=== PATIENT | female | born 1935 | race Caucasian/White ===

== ENCOUNTER 2023-08-05 11:51 | Emergency (ER) | payer MEDICARE, SELFPAY ==
[2023-08-05 12:00] VITALS: BP 167/91; PULSE 83; RESP 20; TEMP 36.5; O2SAT 98; BMI 22.3
--- NOTE | 2023-08-05 12:13 | EXP.UTC ---
Discharge Plan Disposition Patient Disposition: Home, Self-Care Condition: Good Prescriptions Prescriptions: New sulfamethoxazole-trimethoprim 800-160 mg tablet 1 tab PO BID 7 Days Qty: 14 0RF mupirocin 2 % ointment 1 applic topical BID Qty: 22 0RF No Action memantine 5 mg tablet 5 mg PO HS PreserVision AREDS 4,296 mcg-226 mg-90 mg capsule 1 cap PO BID Eliquis 2.5 mg tablet 2.5 mg PO BID Qty: 180 3RF bumetanide 1 mg tablet 1 mg PO DAILY Qty: 90 3RF losartan 25 mg tablet 25 mg PO DAILY Qty: 90 3RF metoprolol succinate 50 mg tablet extended release 24 hr 50 mg PO DAILY Qty: 90 3RF Referrals Follow up/Referrals: Kathy Torres [Primary Care Provider] - See instructions Activity Restrictions/Add. Instructions Additional Instructions/Restrictions: You were evaluated in the ER. You are appropriate for discharge at this time. Take the prescribed antibiotic as directed, do not skip doses, do not stop taking it early. Apply the topical ointment as directed. Keep the wound clean and dry. Shower/bathe as normal. Make an appointment with primary care physician for reevaluation in a few days to discuss evaluation of the lesion and ensure the antibiotics are improving. Return to the ER with new, worsening, or otherwise concerning symptoms. Clinical Impressions Clinical Impression: Cellulitis Instructions Patient Instructions: DI for Skin Abscess [place]charge [place] Jace Lopez [facility] [place] General Chief complaint: Skin/Abscess/Foreign Body Stated complaint: knot on left side of head Mode of Arrival: Ambulatory Source of Information: Patient and Relative Limitations: No Limitations Time Seen by Provider: 08/05/23 12:13 Description of Symptoms (Recalled from Triage Doc. by RN): FAMILY REPORTS PATIENT WITH KNOT TO LEFT SIDE OF HEAD X 1 WEEK WITH REDNESS, WARMTH, AND SCAB NOTED TO AREA. NO KNOWN INJURY HEENT Symptoms (Recalled from RN notes): Yes Resp Symptoms (Recalled from RN notes): No Skin Symptoms (Recalled from RN notes): Yes MS Symptoms (Recalled from RN notes): No Functional Status (Recalled from RN notes): WNL History of Present Illness Provider Complaint: Patient told family that she noticed a small bump on the left side of her head about a week ago that was the size of the tip of her pinky but has continued to get worse States she has been putting antibiotic ointment on it and hey suspect she may have been picking at it because now it is larger, redness and warmth around it on her scalp and has redness from her hairline to under her eye not sure if that is from the knot on her head or not but she says it hurts bad when they tried to touch it 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 Denies FIERRO, denies known fever or chills Related Data Home Medications Medication Instructions Recorded Confirmed memantine 5 mg tablet 5 mg PO HS 01/26/23 07/27/23 vitamins A,C,G-qbsq-euefby 4,296 1 cap PO BID 01/26/23 07/27/23 mcg-226 mg-90 mg capsule (PreserVision AREDS) Previous Rx's Medication Instructions Recorded apixaban 2.5 mg tablet (Eliquis) 2.5 mg PO BID #180 tabs 01/26/23 bumetanide 1 mg tablet 1 mg PO DAILY #90 tabs 01/26/23 losartan 25 mg tablet 25 mg PO DAILY #90 tabs 01/26/23 metoprolol succinate 50 mg 50 mg PO DAILY #90 tabs 01/26/23 tablet,extended release 24 hr mupirocin 2 % topical ointment 1 applic topical BID #22 grams 08/05/23 sulfamethoxazole 800 1 tab PO BID 7 days #14 tabs 08/05/23 mg-trimethoprim 160 mg tablet Allergies Allergy/AdvReac Type Severity Reaction Status Date / Time No Known Allergies Allergy Verified 07/27/23 10:36 Worker's Comp Is this a Worker's Comp case?: No [facility] Disclaimer: The information contained in this section may have been updated after the patient was seen, as this information can be updated by other users. Medical History (Updated 08/05/23 @ 12:49 by Jace Lopez MD) Pacemaker Mitral regurgitation Aortic regurgitation HLD (hyperlipidemia) HTN (hypertension) Chronic a-fib HFrEF (heart failure with reduced ejection fraction) Systolic heart failure Surgical History (Updated 08/05/23 @ 12:12 by Sheryl Monreal RN) History of hysterectomy Social History Smoking Status: Never smoker alcohol intake: never current occupational status: retired Travel in the last 8 weeks: None ROS Obtained: Yes All systems reviewed & no additional complaints except as documented and Yes Systems reviewed as appropriate & no additional complaints except as documented Constitutional Constitutional: Reports system reviewed and no additional complaints, except as documented and Reports as per HPI ENT Ears, Nose, Mouth, and Throat: Reports system reviewed and no additional complaints, except as documented and Reports as per HPI Cardiovascular Cardiovascular: Reports system reviewed and no additional complaints, except as documented and Reports as per HPI Respiratory Respiratory: Reports system reviewed and no additional complaints, except as documented and Reports as per HPI Gastrointestinal Gastrointestingal: Reports system reviewed and no additional complaints, except as documented and as per HPI Musculoskeletal Musculoskeletal: Reports system reviewed and no additional complaints, except as documented and Reports as per HPI Integumentary/Breasts Skin/Breast: Reports system reviewed and no additional complaints, except as documented and Reports as per HPI Comments: Reports sore, tender, knot on left side of head that has got worse over the last week now red, sore warm to the touch with scab on it and redness on left side of face to under her eye Neurologic Neurologic: Reports system reviewed and no additional complaints, except as documented and Reports as per HPI Physical Exam General General appearance: alert and in no apparent distress Expanded Head Exam Head exam physical: Present other Head image: 1. red, warm, tender hard scabbed area noted with surrounding redness and warmth to surrounding skin on scalp with redness extending to left side of face and under left eye area appears swollen Respiratory Respiratory exam: Present normal lung sounds bilaterally; Absent respiratory distress Cardiovascular Cardiovascular exam: Present regular rate, normal rhythm and normal heart sounds Neurological Exam Neurological exam: Present alert, oriented X3 and normal gait Skin Skin exam: Present other (see head diagram ) Medical Decision Making Alvarez Inquiry Pt receiving controlled substance: No Alvarez was queried for this patient: No Vital Signs: 08/05/23 12:00 Temperature 97.7 F Temperature Source Oral Pulse Rate [Left Brachial] 83 Respiratory Rate 20 Blood Pressure [Left Arm] 167/91 H Blood Pressure Mean [Left Arm] 116 Blood Pressure Source [Left Arm] Automatic Cuff Blood Pressure Position [Left Arm] Sitting 02 Sat by Pulse Oximetry 98 Oxygen Delivery Method Room Air Medical Decision Narrative: Due to scabbed area on left side of scalp with surrounding redness on the scalp that appears to extend to left side of face and under left eye discussed with family and recommended transfer to the ED for further work up and evaluation and they agreed patient was moved to the ED for further examination and treatment
--- NOTE | 2023-08-05 12:18 | PC.NURSE ---
arrived to ed from [facility] via wheelchair
[2023-08-05 12:27] VITALS: BP 123/78; PULSE 77; RESP 17; TEMP 36.4; O2SAT 98; BMI 22.3
[2023-08-05 12:30] VITALS: BP 145/84; PULSE 79; O2SAT 98
--- NOTE | 2023-08-05 12:54 | HMH.EDGENADL ---
Discharge Plan Disposition Patient Disposition: Home, Self-Care Condition: Good Prescriptions Prescriptions: New sulfamethoxazole-trimethoprim 800-160 mg tablet 1 tab PO BID 7 Days Qty: 14 0RF mupirocin 2 % ointment 1 applic topical BID Qty: 22 0RF No Action memantine 5 mg tablet 5 mg PO HS PreserVision AREDS 4,296 mcg-226 mg-90 mg capsule 1 cap PO BID Eliquis 2.5 mg tablet 2.5 mg PO BID Qty: 180 3RF bumetanide 1 mg tablet 1 mg PO DAILY Qty: 90 3RF losartan 25 mg tablet 25 mg PO DAILY Qty: 90 3RF metoprolol succinate 50 mg tablet extended release 24 hr 50 mg PO DAILY Qty: 90 3RF Referrals Follow up/Referrals: Kathy Torres [Primary Care Provider] - See instructions Activity Restrictions/Add. Instructions Additional Instructions/Restrictions: You were evaluated in the ER. You are appropriate for discharge at this time. Take the prescribed antibiotic as directed, do not skip doses, do not stop taking it early. Apply the topical ointment as directed. Keep the wound clean and dry. Shower/bathe as normal. Make an appointment with primary care physician for reevaluation in a few days to discuss evaluation of the lesion and ensure the antibiotics are improving. Return to the ER with new, worsening, or otherwise concerning symptoms. Clinical Impressions Clinical Impression: Cellulitis Instructions Patient Instructions: DI for Skin Abscess Discharge ED Provider: Jace Lopez General Adult HPI General Chief complaint: Skin/Abscess/Foreign Body Stated complaint: knot on left side of head Time Seen by Provider: 08/05/23 12:13 Mode of Arrival: Ambulatory Source of Information: Patient and Relative Limitations: No Limitations Description of Symptoms (Recalled from ER Triage Doc. by RN): FAMILY REPORTS PATIENT WITH KNOT TO LEFT SIDE OF HEAD X 1 WEEK WITH REDNESS, WARMTH, AND SCAB NOTED TO AREA. NO KNOWN INJURY History of Present Illness HPI narrative: 87-year-old female with history of dementia presents to the ER with concerns of lesion and redness on the left side of the head. Approximately 1 week ago patient scratched the top off a lesion and cause bleeding. Since that time she has continued to touch intermittently but today family noted that it is red and warm. Patient was sent from urgent care for concerns of the redness extending slightly under the eye. No fevers, no other associated symptoms, no vision changes, headache, or eye pain. Related Data Home Medications Medication Instructions Recorded Confirmed memantine 5 mg tablet 5 mg PO HS 01/26/23 07/27/23 vitamins A,C,C-guil-kaukqk 4,296 1 cap PO BID 01/26/23 07/27/23 mcg-226 mg-90 mg capsule (PreserVision AREDS) Previous Rx's Medication Instructions Recorded apixaban 2.5 mg tablet (Eliquis) 2.5 mg PO BID #180 tabs 01/26/23 bumetanide 1 mg tablet 1 mg PO DAILY #90 tabs 01/26/23 losartan 25 mg tablet 25 mg PO DAILY #90 tabs 01/26/23 metoprolol succinate 50 mg 50 mg PO DAILY #90 tabs 01/26/23 tablet,extended release 24 hr mupirocin 2 % topical ointment 1 applic topical BID #22 grams 08/05/23 sulfamethoxazole 800 1 tab PO BID 7 days #14 tabs 08/05/23 mg-trimethoprim 160 mg tablet Allergies Allergy/AdvReac Type Severity Reaction Status Date / Time No Known Allergies Allergy Verified 07/27/23 10:36 [facility] Disclaimer: The information contained in this section may have been updated after the patient was seen, as this information can be updated by other users. Medical History (Updated 08/05/23 @ 12:49 by Jace Lopez MD) Pacemaker Mitral regurgitation Aortic regurgitation HLD (hyperlipidemia) HTN (hypertension) Chronic a-fib HFrEF (heart failure with reduced ejection fraction) Systolic heart failure Surgical History (Updated 08/05/23 @ 12:12 by Sheryl Monreal RN) History of hysterectomy Social History Smoking Status: Never smoker alcohol intake: never current occupational status: retired Travel in the last 8 weeks: None ROS Obtained: Yes All systems reviewed & no additional complaints except as documented Constitutional Constitutional: Denies chills, Denies fever(s), Denies headache(s) and Denies weakness Eyes Eyes: Denies change in vision ENT Ears, Nose, Mouth, and Throat: Denies dizziness, Denies headache(s), Denies nasal congestion and Denies sore throat Cardiovascular Cardiovascular: Denies chest pain, Denies dyspnea and Denies leg edema Respiratory Respiratory: Denies cough and Denies dyspnea Gastrointestinal Gastrointestingal: Denies constipation, diarrhea, nausea or vomiting Genitourinary Female Genitourinary: Denies dysuria Musculoskeletal Musculoskeletal: Denies arthralgias, Denies myalgias, Denies numbness and Denies tingling Integumentary/Breasts Skin/Breast: Denies change in pigmentation and Reports other (Erythematous raised patch of skin on the left scalp with heat) Neurologic Neurologic: Denies dizziness, Denies headache(s), Denies numbness, Denies tingling and Denies weakness Physical Exam General General appearance: alert and in no apparent distress Head Head exam: atraumatic, normocephalic and other (Scabbed lesion approximately 1 inch superior to the left ear within patient's hair, has mild underlying fluctuance, surrounding erythema in a patch approximately 8 cm diameter total; small area of erythema under the left eye) Eye Eye exam: Present PERRL, EOMI and other (No proptosis, no pain with extraocular movements, no conjunctival injection, no erythema or swelling of the eyelids, small area of erythema over the left zygoma without induration) ENT ENT exam: Present mucous membranes moist Neck Neck exam: Present normal inspection and full ROM Chest Chest inspection: Present symmetric chest wall rise Respiratory Respiratory exam: Absent respiratory distress or stridor Cardiovascular Cardiovascular exam: Present regular rate and normal rhythm Extremities Exam Extremities exam: Present full ROM Neurological Exam Neurological exam: Present alert and oriented X3; Absent motor sensory deficit Psychiatric Psychiatric exam: Present normal affect and normal mood Skin Skin exam: Present warm and dry Medical Decision Making Alvarez Inquiry Pt receiving controlled substance: No Vital Signs: 08/05/23 12:00 08/05/23 12:27 08/05/23 12:30 Temperature 97.7 F 97.6 F Temperature Source Oral Oral Pulse Rate 79 Pulse Rate [Left Brachial] 83 77 Respiratory Rate 20 17 Blood Pressure 145/84 H Blood Pressure [Left Arm] 167/91 H 123/78 Blood Pressure Mean Blood Pressure Mean [Left Arm] 116 93 Blood Pressure Source [Left Arm] Automatic Cuff Automatic Cuff Blood Pressure Position [Left Arm] Sitting 02 Sat by Pulse Oximetry 98 98 98 Oxygen Delivery Method Room Air Room Air Room Air 08/05/23 13:00 08/05/23 13:25 Temperature 98.2 F Temperature Source Oral Pulse Rate 77 78 Pulse Rate [Left Brachial] Respiratory Rate 18 Blood Pressure 154/80 H 110/75 Blood Pressure [Left Arm] Blood Pressure Mean 104 Blood Pressure Mean [Left Arm] Blood Pressure Source [Left Arm] Blood Pressure Position [Left Arm] 02 Sat by Pulse Oximetry 97 Oxygen Delivery Method Room Air Medical Decision Narrative: In summary, this 87year old female presents to the emergency department today with scalp lesion, erythema. On initial evaluation patient is hemodynamically stable, afebrile, at her neurologic baseline according to daughters at bedside who provide history. Physical exam demonstrates a patch of erythema with central area of fluctuance. I was able to express some purulence from this area, however it is very small and does not feel like a large abscess. Differential diagnosis includes but is not limited to abscess, cellulitis, also considered the possibility of preseptal or orbital cellulitis however I have low suspicion for these, and no findings of orbital cellulitis since patient does not have any proptosis or pain with extraocular movements. I do not believe patient requires any labs or imaging at this time. She is appropriate for outpatient antibiotic management. I prescribed Bactrim and gave patient and family instructions on continued symptomatic management. I also prescribed mupirocin for topical treatment. Patient and family were given instructions on symptomatic management, follow up instructions, and return precautions for the emergency department. They indicated understanding and was discharged in stable condition. Critical Care Critical Care Time Critical Care Time: No
[2023-08-05 13:00] VITALS: BP 154/80; PULSE 77; O2SAT 97
[2023-08-05 13:25] VITALS: BP 110/75; PULSE 78; RESP 18; TEMP 36.8; O2SAT 100
== END 2023-08-05 13:25 | disposition home or self-care (01) ==
LOC: UTC 11:59 → ER 12:17
PROVIDERS: Emergency Provider Emergency Medicine; PCP Family Medicine
DX: L03.811 Cellulitis of head [any part, except face] (principal)
CPT/HCPCS: 99283

== ENCOUNTER 2024-10-11 12:11 | Emergency (ER) | payer MEDICARE, SELFPAY ==
[2024-10-11] VITALS (10 sets, daily range): BP systolic 133–163; BP diastolic 75–97; PULSE 55–85; RESP 16–17; TEMP 36.5–36.6; O2SAT 82–98; BMI 23.8
--- OUTSIDE RECORDS SUMMARY | 2024-10-11 12:51 | XMS_ITS | Data Portability ---
Author Organization [place] [facility] [place] Address [address] [place] [address] Care Team Providers Care Drum Builder Name Role Phone CONRAD FITZGERALD Primary Care Provider Assessment No assessment recorded. Plan of Treatment Reminders Order Date Submit Date Provider Last Modified By Organization Details Last Modified Time Details Appointments None recorded. Lab None recorded. Referral None recorded. Procedures None recorded. Surgeries None recorded. Imaging None recorded. Medication Orders escitalopra m 5 mg tablet 2021 022 [id number], [address] [place], [address], 14:33:46 Patient TargetsNo targets recorded. Patient InstructionsNo instructions recorded. Reason for Referral None Reported. Medical Equipment None Reported. Allergies No known drug allergies Medications Name Sig Start Date Stop Date Status Note LastModified by Organization Details LastModified Time metoprolol succinate ER 50 mg tablet,exten ded release 24 hr TAKE 1 TABLET BY MOUTH EVERY DAY active Not Available Not Available No t Available erythromycin 5 mg/gram (0.5 %) eye ointment PLACE A 1/4-INCH RIBBON INTO THE LEFT EYE EVERY NIGHT AT BEDTIME active Not Available Not Available No t Available losartan 25 mg tablet TAKE 1 TABLET BY MOUTH EVERY DAY active Not Available Not Available No t Available bumetanide 1 mg tablet TAKE 1 TABLET BY MOUTH EVERY DAY active Not Available Not Available No t Available digoxin 125 mcg (0.125 mg) tablet TAKE 1 TABLET BY MOUTH EVERY DAY active Not Available Not Available No t Available tobramycin 0.3 %-dexamethas one 0.1 % eye drops,suspen cristy INSTILL 1 DROP INTO THE RIGHT EYE 4 TIMES A DAY AFTER WARM COMPRESSES active Not Available Not Available N ot Available memantine 10 mg tablet TAKE 1 TABLET BY MOUTH TWICE A DAY FOR 90 DAYS active Not Available Not Available No t Available escitalopram 5 mg tablet TAKE 1 TABLET BY MOUTH EVERY DAY active Not Available Not Available No t Available Eliquis 2.5 mg tablet TAKE 1 TABLET BY MOUTH TWICE A DAY active Not Available Not Available No t Available Vitals Date Recorded Body weight Body temperature Oxygen saturation Oxygen saturation in Arterial blood by Pulse oximetry Heart rate Systolic And Diastolic Provider Name and Address Organization Details Last Updated DateTime 2 81598.7 5 g 98.2 [degF] 97 % 97 % 82 /min 120/80 mm[Hg] Ben Turk [facility] & [place] 2 14:03:03 Social History None recorded. Functional Status None recorded. Mental Status None recorded. Family History Nothing Reported. Medical History No medical history recorded. Gynecological HistoryNo gynecological history recorded. Obstetrics History GPAL:G 0 P 0 0 0 0 Past Encounters Encounter ID Performer Location Encounter Start Date Encounter Closed Date Diagnosis/Indication Diagnosis SNOMED-CT Code Diagnosis ICD10 Code Diagnosis Note [id number] Lucita Delatorre MD [facility] [address] [place] [address] [phone] 03/05/2022 13:57:10 03/05/2022 14:44:49 Primary degenerative dementia of the Alzheimer type, senile onset 389409560 G30.1 overall stable, would like to continue memantine 10 mg twice a day. Patient will follow-up with me Q 6 months regarding this. In terms of her anxiety I have recommende talisha diane g low-dose of an SSRI to see if this may not be of benefit to her, we will go ahead with low-dose citalopram and see how she does. 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 F41.8 Health Concerns Section Related Observation LastModified by Organization Detai ls LastModified Time None Recorded Concern Status LastModified by Organization Details LastModified Time None Recorded Advance Directives Directive None Recorded Payers Insurance Date Sequence Insurance Name Policy Number Policy King Covered Member ID King Member ID Guarantor Name 10/17/2023 1 [employer] (MEDICARE REPLACEMENT/ ADVANTAGE - PPO) Ketty Colin Lavonne [id number] Ketty S Lavonne Notes Date Note Type Note Provider Name and Address Organization Details Recorded Time 03/05/2022 text/html Patient follows up today, history of mild dementia but overall has been stable. Patient was unable to tolerate donepezil but is doing well on memantine 10 mg twice a day. One of her daughters now lives with her and she really appreciates that, however there has been some increasing difficulty with anxiety, separation anxiety and anxiety about her health. Patient has been diagnosed with mitral valve disease but surgery has not been recommended. Lucita Delatorre MD [address] [place] [address], [phone] [place] [address] & [place] 03/05/2022 14:34:14 OBGyn Episode No OBEpisode recorded.
--- OUTSIDE RECORDS SUMMARY | 2024-10-11 12:51 | XMS_ITS | Data Portability ---
Author Organization [facility] - MARY Andujar BEMIDJI CLOSED Address [address] [facility] [address] [place] [address] Care Team Providers Care Night Shift Manager Name Role Phone CONRAD FITZGERALD Primary Care Provider [phone] Assessment Encounter Date Assessment Date Assessment LastModified by Organization Details LastModified Time 12/05/2022 12/05/2022 Progressive and severe Alzheimer disease, patient however is very pleasant and currently cared for by her daughters, I recommended continuing memantine, she is unable to tolerate cholinesterase inhibitors. We will increase escitalopram to 10 mg and follow-up on a yearly basis. [email or web address] Not available 12/05/2022 15:14:37 04/23/2023 04/23/2023 87 yo here today with new symptoms of visual hallucinations She has severe progressive Alzheimer's dementia. These current symptoms started soon after her last visit when her escitalopram dose was increased. She continues to be unmotivated despite this change and also has had weight loss. We will start by backing off on the escitalopram - drop to 1/2 tab daily for 2 weeks then eval the lack of motivation and hte hallucinations. CAn stop if no change in motivation. Next we can try cutting the memantine in half - possibly just taking a single 10mg dose in am. We have also discussed the addition of seroquel for her to help improve the hallucinations and sleep. This does come with increased risk of and stroke. This is a decision to be made after weighing pros and cons. They understand. We will plan for recheck in 6-8 weeks, sooner if problems. Not available 04/23/2023 13:31:24 06/18/2023 06/18/2023 87 yo here today for recheck after med changes She is now off the escitalopram and using memantine 10mg only once daily and with these changes having no more night time hallucinations, sleeping better, more motivated and less depressed seeming. Overall they are happy with how she has done. We will continue with these changes RTC 6m, sooner if problems. Not available 06/18/2023 14:05:14 12/10/2023 12/10/2023 88 yo here today for 6m memory recheck She continues to have some decline, MMSE today down 4pts from last year. She has so far only tolerated memantine 10mg once a day and so we will continue that. Discussed with her daughters today some coping strategies that they can try to implement for them as caregivers. RTC 6m, sooner if problems. Not available 12/10/2023 16:45:29 06/09/2024 06/09/2024 88 yo here today with her daughters for 6m dementia recheck She continues on memantine 10mg 1 tab daily which is the most she has been able to tolerate - she has previously not tolerated donepezil or rivastigmine. Escitalopram caused hallucinations She is really needing full care at this point with food preperation, help dressing, medication management, help with showering and hygiene. Her daughters are taking good care of her and keeping her safe. Discussed option of trying to find a comfort object like a doll or bear that may sooth her during times when she is looking for her parents. RTC 6m, PRN Not available 06/09/2024 12:09:07 Plan of Treatment Reminders Order Date Submit Date Provider Last Modified By Organization Details Last Modified Time Details Appointments NEUROLOGY RECHECK 2024 11:30A Shira CHAMORRO MD Not available Not available Not available Lab None recorded. Referral None recorded. Procedures None recorded. Surgeries None recorded. Imaging None recorded. Medication Orders memantine [address] [id number], [address] [place], [address], 12/10/2023 13:33:13 memantine 10 mg tablet [address] [id number], [address] [place], [address], 12/05/2022 15:15:29 escitalop gisele 10 mg tablet 2022 024 [id number], [address] [place], [address], 06/18/2023 13:50:38 Patient TargetsNo targets recorded. Patient InstructionsNo instructions recorded. Reason for Referral None Reported. Results Created Date Observation Date Name Description Value Unit Range Abnormal Flag Note LastModifiedBy Organization Detail LastModifiedTime Result Notes None recorded. Procedures Surgical History Date Name Laterality Status Provider Name and Address Organization Details Recorded Time 02/20/20 16 Pacemaker monitr digital/vis completed Jazlyn Echeverria [facility] 12/05/2022 14:42:50 Total Hysterectomy completed Kimberlyn Theodore [facility] 04/23/2023 12:56:39 Imaging Results None recorded. Procedure Notes None recorded. Medical Equipment None Reported. Allergies No known drug allergies Medications Name Sig Start Date Stop Date Status Note LastModified by Organization Details LastModified Time metoprolo l succinate ER 50 mg tablet,ex tended release 24 hr Take 1 tablet every day by oral route. active Not Available Not Available No t Available minoxidil 2.5 mg tablet Daily 04/23 completed Not Available Not Available Not Available losartan 25 mg tablet Take 1 tablet every day by oral route. active Not Available Not Available No t Available aspirin 81 mg tablet Daily 04/23 completed Duration : 30 days;Paul quency: daily;Me dication Descript ion: aspirin; Dosage:1 ; Route:or al; refills: 0; Quantity :30 tablet Not Available Not Available Not Available vitamin E 268 mg (400 unit) capsule Two times a day 04/23 completed Frequenc y: bid;Medi cation Descript ion: vitamin E; Dosage:1 ; Route:or al; refills: 0; Quantity :1 capsule Not Available Not Available Not Available escitalop gisele 10 mg tablet Take 1 tablet every day by oral route for 90 days. 06/17 completed 4 - 5mg QD Not Available Not Available Not Available memantine 10 mg tablet Take 1 tablet(s ) every day by oral route for 90 days. 2023 active Not Available Not Available Not Avai lable escitalop gisele 5 mg tablet active Not Available Not Available Not Available bumetanid e one daily active Not Available Not Available No t Available furosemid e Two times a day 04/23 completed Not Available Not Available Not Available amlodipin e-benazep ril Daily 04/23 completed Not Available Not Available Not Available Cozaar Daily 04/23 completed Frequenc y: daily;Me dication Descript ion: losartan ; Dosage:1 ; Route:or al; refills: 5; Quantity :30 tablet Not Available Not Available Not Available Eliquis 2.5 mg tablet Take 1 tablet twice a day by oral route. active Not Available Not Available No t Available PreserVis ion AREDS 2 Plus Multivit 200 mcg-15 mcg-5 mg-1 mg capsule Take 1 capsule twice a day by oral route. active Not Available Not Available No t Available Vitals Date Recorded Body height Body mass index (BMI) Body weight Oxygen saturation Oxygen saturation in Arterial blood by Pulse oximetry Heart rate Systolic And Diastolic Provider Name and Address Organization Details Last Updated DateTime 4 162.56 cm 21.1 kg/m2 54606.5 6 g 99 % 99 % 70 /min 116/64 mm[Hg] Kimberlyn Theodore [facility] 4 12:58:58 Date Recorded Body height Body mass index (BMI) Body weight Systolic And Diastolic Provider Name and Address Organization Details Last Updated DateTime 06/09/2024 162.56 cm 21.8 kg/m2 85239.23 g 114/72 mm[Hg] Leandra Byrnes [facility] 06/09/2024 11:32:08 Date Recorded Body height Body mass index (BMI) Body weight Heart rate Oxygen saturation Oxygen saturation in Arterial blood by Pulse oximetry Systolic And Diastolic Provider Name and Address Organization Details Last Updated DateTime 4 162.56 cm 20.6 kg/m2 54900.0 8 g 70 /min 98 % 98 % 122/86 mm[Hg[facility] 13:48[facility]05 Date Recorded Body height Body mass index (BMI) Body weight Heart rate Oxygen saturation Oxygen saturation in Arterial blood by Pulse oximetry Systolic And Diastolic Provider Name and Address Organization Details Last Updated DateTime 3 162.56 cm 23.7 kg/m2 36233.7 5 g 77 /min 97 % 97 % 122/72 mm[Hg] [facility] 3 14:37:58 Date Recorded Body height Body mass index (BMI) Body weight Heart rate Oxygen saturation Oxygen saturation in Arterial blood by Pulse oximetry Systolic And Diastolic Provider Name and Address Organization Details Last Updated DateTime 4 162.56 cm 24 kg/m2 41235.9 3 g 66 /min 99 % 99 % 120/80 mm[Hg] [facility] 4 13:02:06 Social History Question Answer Notes LastModified by Organizat ion Details LastModified Time Tobacco Smoking Status Never Smoker [facility] [place] 12/05/2022 14:41:51 What Was The Date Of Your Most Recent Tobacco Screening? 04/23/2023 [email or web address] Information not available 04/23/2023 Sex: Unknown Functional Status Question Answer Note LastModified by Organization D etails LastModified Time What is your level of alcohol consumption? None [email or web address] Information not available 12/05/2022 Mental Status None recorded. Family History Relationship Description Onset Age of this Age Resolved Age Notes LastModified by Organization Details LastModified Time Mother Family history of malignant neoplasm Brain [email or web address] Not available 2022 14:40:33 Father Family history of malignant neoplasm Colon [email or web address] Not available 2022 14:40:33 Sister Heart disease Not available 2022 14:41:12 Medical History Condition Response Arthritis Y Heart Disease Y Alzheimer's Y Hypertension Y Gynecological HistoryNo gynecological history recorded. Obstetrics History GPAL:G 0 P 0 0 0 0 Past Encounters Encounter ID Performer Location Encounter Start Date Encounter Closed Date Diagnosis/Indication Diagnosis SNOMED-CT Code Diagnosis ICD10 Code Diagnosis Note [id number] KVNG DELATORRE MD [facility] [address] [place] [address] 12/05/2022 14:26:13 12/06/2022 04:56:50 Primary degenerative dementia of the Alzheimer type, senile onset 373005639 G30.1 [id number] ASH JOHNS PA-C [facility] [address] [place] [address] 1 04/23/2023 12:42:24 04/24/2023 04:18:32 Primary degenerative dementia of the Alzheimer type, senile onset 748170217 G30.1 Visual hallucinations 64 257196 R44.1 [id number] ASH JOHNS PA-C [facility] [address] [place] [address] 1 06/18/2023 13:36:54 06/19/2023 05:18:08 Primary degenerative dementia of the Alzheimer type, senile onset 450835742 G30.1 [id number] ASH JOHNS PA-C [facility] [address] [place] [address] 1 12/10/2023 12:41:43 12/11/2023 04:09:30 Primary degenerative dementia of the Alzheimer type, senile onset 057665131 G30.1 [id number] ASH JOHNS PA-C [facility] [address] [place] [address] 1 06/09/2024 11:11:46 06/10/2024 04:47:24 Primary degenerative dementia of the Alzheimer type, senile onset [id number] G30.1 Health Concerns Section Related Observation LastModified by Organization Detai ls LastModified Time None Recorded Concern Status LastModified by Organization Details LastModified Time None Recorded Advance Directives Directive None Recorded Payers Insurance Date Sequence Insurance Name Policy Number Policy King Covered Member ID King Member ID Guarantor Name 12/10/2023 1 [employer] Ketty S Brashier [id number] Ketty S Brashier 12/10/2023 1 [employer] (MEDICARE REPLACEMENT/ ADVANTAGE - PPO) Ketty S Brashier [id number] Ketty S Brashier 06/06/2024 [employer] (MEDICARE REPLACEMENT/ ADVANTAGE - PPO) Ketyt S Brashier [id number] Ketty S Brashier Notes Date Note Type Note Provider Name and Address Organization Details Recorded Time 12/05/2022 text/html 87-year-old patricia heller presents today for follow-up, longstanding history of senile dementia, has been doing relatively well, her younger daughter lives with her and cares for her. Patient does simple chores around the house, help sweeping helps with laundry, sometimes works in the yard. Patient has significant difficulties with tolerating donepezil and rivastigmine, she has been on memantine 10 mg twice a day. At 1 point because of sleepiness this was dropped to once a day but her daughter felt that she was better on it twice a day. Patient also has been on escitalopram 5 mg and feels this is helpful in terms of mood control. Otherwise she sleeps well and her appetite is good, her weight has stayed stable. KVNG DELATORRE MD [address] [place] [address], [id number], [facility] 12/05/2022 15:15:43 04/23/2023 text/html 87 yo here today for dementia followup - last seen by Dr. Delatorre on 12/05/22: Progressive and severe Alzheimer disease, patient however is very pleasant and currently cared for by her daughters, I recommended continuing memantine, she is unable to tolerate cholinesterase inhibitors. We will increase escitalopram to 10 mg and follow-up on a yearly basis.She returns today because she has developed hallucinations. Here today with her 2 daughters - she doesn't remember their names.She reports that she isn't sureDaughters report there are people in her rooms, worms on ceiling/gomez/floor and she is trying to kill them. Sees children in her room.Seems to be more and more - has been going on since Nov visit, initially it was a cycle where they would come and go. Mostly at night. Will be up all night calling for someone to help and not sleeping and busy and then she would sleep basically for a couple of days and then seemed well for a couple of days. But now this is more constant and doesn't seem to hae the good days in between. It can happen during the day more now as well. Doesn't matter where she is - could be at either daughter's houseThese are scaring her and she will scream out about them. ASH JOHNS PA-C [address] [place], [address], [facility] 04/23/2023 13:31:44 06/18/2023 text/html 87 yo here today for 6-8 week recheck.She has had hallucinations and lack of motivation that worsened after increasing the dose of her escitalopram.We will start by backing off on the escitalopram - drop to 1/2 tab daily for 2 weeks then eval the lack of motivation and the hallucinations. Can stop if no change in motivation.Next we can try cutting the memantine in half - possibly just taking a single 10mg dose in am.We have also discussed the addition of seroquel for her to help improve the hallucinations and sleep. This does come with increased risk of and stroke. They are feeling good about how she has doing with the change in meds.No longer on the escitalopram at all.Now using the memantine 10mg once a day.Sleep is better at night as wellOccasionally during the day she will see people outside working, but during the night not seeing thingsMotivation seems a little better too. Went out into the yard the other day to weed some. ASH JOHNS PA-C [address] [place], [address], [facility] 06/18/2023 14:05:44 12/10/2023 text/html 88 yo here today for 6m memory recheck: She is now off the escitalopram and using memantine 10mg only once daily and with these changes having no more night time hallucinations, sleeping better, more motivated and less depressed seeming.12/05/[address] Delatorre She is here today with her daughtersThey confirm he memantine 10mg in the am only.Denies hallucinations, sleeping well and sleeps a lot during the day - gets up in the morning and be up for an hour or 2 then go back to bed for a while and then up again for lunch and then a nap again and then up again. Doesn't have anything to do - but if she has something to do she has no problem staying awake.She lives with one of her daughters. They are mentioning that she is doing a lot of repeating herself and asking the same questions.IN the evenings she will ask why everyone isn't home yet, or say that she needs to be getting home. ASH JOHNS PA-C [address] [place], [address], [facility] 12/10/2023 16:45:51 06/09/2024 text/html 88 yo here today for 6m dementia recheck: She continues to have some decline, MMSE today down 4pts from last year.She has so far only tolerated memantine 10mg once a day and so we will continue that.Discussed with her daughters today some coping strategies that they can try to implement for them as caregivers.Previously unable to tolerate donepezil Here today with her daughters: Michelle and ShayNo hallucinations since off the escitalopramLives with her daughter, they alternating soon to the other daughter's house.Daughter manages the medicines for her.They manage the cookingDaughter is managing her financesThey manage her laundry and she folds itShe needs some assistance with dressingShe has to step into the bathtub for a shower, has a seat but doesn't use that. Requires a lot of encouragement to get her to showerDuring the day she is napping a lot, not too much else. Sleeping 16-18h/dEating less - kit clark and cookies mostly but not as much. Drinking less milk than in the past.Having times of anxiety (evening mostly) when she will be worried that her parents haven't come to pick her up or wanting to call them ASH JOHNS PA-C [address] [place], [address], [facility] 06/09/2024 12:09:25 OBGyn Episode No OBEpisode recorded.
--- OUTSIDE RECORDS SUMMARY | 2024-10-11 12:51 | XMS_ITS | Data Portability ---
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 We megan recommend treatment with topical antibiotic ointment and cleansing with tearless baby shampoo. She is due labs. [email or web address] Not available 03/03/2022 22:44:16 05/05/2022 05/05/2022 Ketty has had cat e abdominal bloating and loose bowels. She is not extremely ill but her symptoms are persisting for over a week. She does drink a lot of milk and we recommend she avoid that until she is better. We will recommend a urinalysis and pcr GI specimen. Not available 05/05/2022 21:24:19 12/04/2022 12/04/2022 Ketty presents fo r a wellness visit. 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 She has had issues with blood pressure control and has stabilized with metoprolol and losartan with diuretics. She apparently has close follow up with cardiology and she was diagnosed with NEYMAR but declines to use her CPAP. She has had a normal cardiac cath with a normal left ventricle output in June of 2016. Labs continue to show near normal thyroid function after a bout of significant hypothyroidism and subsequent hyperthyroidism after a couple of years. She no longer requires thyroid supplement and they decline to take any as she seemed to lose too much weight and hair on the supplement. She has stopped having mammograms. She had a normal colonoscopy in 2016 other than internal hemorrhoids so is up to date on that study and should not need another. Her vision has declined with the macular degeneration and she is now having check ups every three months. She has not yet required injections but apparently is borderline. She receives the annual flu vaccine today. She is followed by neurologist, Dr. Delatorre for the short term memory loss issues and her dementia is getting significantly worse. Labs are reviewed and lipids remain elevated and she had elevated LFT that were significant on a low dose statin. She declines to take a higher dose as she has had difficulty tolerating statins with regard to muscle pains and also the liver function abnormalities that occurred. Chemistries are normal other than an elevated glucose in early diabetic range and moderate GFR reduction. Her daughter advises that her foods of choice now are cookies and kit raman bars. She is eating less healthy food. Clearly she has declined with regard to her memory. We continue to encourage close family surveillance. She stays active with her daily chores and now her youngest daughter has now moved in with her and keeps close tabs on her daily. Daughter is a POA and patient is Bahai and will not take transfusions or resuscitation. [email or web address] Not available 12/06/2022 23:06:25 01/14/2024 01/14/2024 Ketty presents fo r a wellness visit. 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 She has had issues with blood pressure control and has stabilized with metoprolol and losartan with diuretics. She apparently has close follow up with cardiology and she was diagnosed with NEYMAR but with her memory issues she really cannot use her CPAP so that was discontinued a few years ago. She has had a normal cardiac cath with a normal left ventricle output in June of 2016. Labs continue to show near normal thyroid function after a bout of significant hypothyroidism and subsequent hyperthyroidism after a couple of years. She no longer requires thyroid supplement and they decline to take any as she seemed to lose too much weight and hair on the supplement. She has stopped having mammograms. She has developed a superficial skin eruption under both breasts that is consistent with candidiasis. 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 We will recommend Nystatin cream and powder for this. She had a normal colonoscopy in 2016 other than internal hemorrhoids so is up to date on that study and should not need another. Her vision has stabilized with the macular degeneration and she is now having regular check ups . She has not required injections and the eye vitamins have obviously helped. She receives the annual flu vaccine today. She is followed by her neurologist for the short term memory loss issues and her dementia is progressively worse. She did wander outside of her house early in the morning recently and that is new behavior. Labs are reviewed and lipids remain elevated and she had elevated LFT that were significant on a low dose statin. She could not tolerate statins with regard to muscle pains and also the liver function abnormalities that occurred. Liver function tests have normalized. Renal function continues to show moderate GFR reduction. Her daughter advises that her foods of choice now are cookies and kit raman bars. She is eating less healthy food. Clearly she has declined with regard to her memory. We continue to encourage close family surveillance. She stays active with her daily chores and now her youngest daughter has now moved in with her and keeps close tabs on her daily. Daughter is a POA and patient is Bahai and will not take transfusions or resuscitation. Not available 01/14/2024 23:53:20 07/28/2024 07/28/2024 Ketty has a small abscess on the skin just in front of the left ear. She is colonized with staph so we will treat with Keflex initially and if it does not improve with that and warm compresses we may need to adjust her treatment. She also keeps a significant candidiasis especially under the breasts. We will treat with diflucan since she is starting antibiotics. She already uses nystatin cream and powder. Not available 07/28/2024 14:58:27 Plan of Treatment Reminders Order Date Submit Date Provider Last Modified By Organization Details Last Modified Time Details Appointments None recorded. Lab urinalysis, dipstick 2022 023 [facility], [address] [place], [address], 3 16:10:37 gastrointes tinal pathogens panel, PCR, stool 2022 023 otf n5 [facility], [address] [place], [address], 3 08:21:44 CMP, serum or plasma 2021 022 [facility], [address] [place], [address], 07:14:23 TSH, serum or plasma 2021 [facility], [address] [place], [address], 07:14:24 CBC w/ auto diff 2021 022 [facility], [address] [place], [address], 07:14:25 Referral None recorded. Procedures None recorded. Surgeries None recorded. Imaging None recorded. Medication Orders cephalexin 500 mg capsule 2024 025 [id number], [address] [place], [address], 5 14:55:24 fluconazole 150 mg tablet 2024 025 [id number], [address] [place], [address], 5 14:55:24 nystatin 100,000 unit/gram topical cream 2023 024 [facility], [address] [place], [address], 4 14:35:23 nystatin 100,000 unit/gram topical powder 2023 024 [facility]016, [address] [place], [address], 14:35:24 erythromyci n 5 mg/gram (0.5 %) eye ointment 2021 022 [id number], [address] [place], [address], 14:14:54 Patient TargetsNo targets recorded. Patient Instructions Encounter Date Encounter Id Patient Instructions Last Modified By Organization Details Last Modified Time 03/03/2022 [id number] blepharitis: car e instructions Not available 03/03/2022 16:17:28 05/05/2022 [id number] diarrhea: care instructions Not available 05/05/2022 15:24:28 12/04/2022 [id number] taking direct or al anticoagulants safely: care instructions Not available 12/04/2022 14:26:52 01/14/2024 [id number] taking direct or al anticoagulants safely: care instructions Not available 01/14/2024 14:35:20 Reason for Referral None Reported. Results Created Date Observation Date Name Description Value Unit Range Abnormal Flag Note LastModifiedBy Organization Detail LastModifiedTime 03/03/2003/04/2022 COMPR EHENS JAYNE METAB OLIC PANEL glucose 97 mg/dL 65-99 normal Fasti ng refer ence inter andreea Not Available [employer] [facility] [address] [place], [address], 03/04/2022 07:14:23 03/03/20 22 03/04/2022 COMPR EHENS JAYNE METAB OLIC PANEL urea nitrogen (BUN) 27 mg/dL 7-25 high Not Available [facility] [facility] [address] [place], [address], 03/04/2022 07:14:23 03/03/20 22 03/04/2022 COMPR EHENS JAYNE METAB OLIC PANEL creatinine 1.11 mg/dL 0.60-0 .95 high Not Available [facility] [address] [facility] [place] [place], [address], 03/04/2022 07:14:23 03/03/20 22 03/04/2022 COMPR EHENS JAYNE METAB OLIC PANEL eGFR 48 mL/mi n/1.7 3m2 > or = 60 low The eGFR is based on the CKD-E PI 2020 equat ion. To calcu late the new eGFR from a previ ous Creat inine or Cysta tin C resul t, go to https ://pravin tejada.mathew andersen.марина lew/sylvie gruber s/ kdoqi /gfr% 5Fcal culat or Not Available [facility] [address] [place], [address], 03/04/2022 07:14:23 03/03/20 22 03/04/2022 COMPR EHENS JAYNE METAB OLIC PANEL BUN/creatini ne ratio 24 (calc ) 6-22 high Not Available [facility] [address] [place], [address], 03/04/2022 07:14:23 03/03/20 22 03/04/2022 COMPR EHENS JAYNE METAB OLIC PANEL sodium 138 mmol/ L 135-14 6 normal Not Available [facility] [address] [place], [address], 03/04/2022 07:14:23 03/03/20 22 03/04/2022 COMPR EHENS JAYNE METAB OLIC PANEL potassium 3.7 mmol/ L 3.5-5. 3 normal Not Available [employer] [facility] [address] [place], [address], 03/04/2022 07:14:23 03/03/20 22 03/04/2022 COMPR EHENS JAYNE METAB OLIC PANEL chloride 100 mmol/ L 98-110 normal Not Available [facility] [place] [facility] [address] [place], [address], 03/04/2022 07:14:23 03/03/20 22 03/04/2022 COMPR EHENS JAYNE METAB OLIC PANEL carbon dioxide 30 mmol/ L 20-32 normal Not Available [facility] [address] [facility] [place], [address], 03/04/2022 07:14:23 03/03/20 22 03/04/2022 COMPR EHENS JAYNE METAB OLIC PANEL calcium 10.0 mg/dL 8.6-10 .4 normal Not Available [facility] [address] [place], [address], 03/04/2022 07:14:23 03/03/20 22 03/04/2022 COMPR EHENS JAYNE METAB OLIC PANEL protein, total 7.2 g/dL 6.1-8. 1 normal Not Available [facility] [address] [facility] [place], [address], 03/04/2022 07:14:23 03/03/20 22 03/04/2022 COMPR EHENS JAYNE METAB OLIC PANEL albumin 4.4 g/dL 3.6-5. 1 normal Not Available [facility] [address] [facility] [place], [address], 03/04/2022 07:14:23 03/03/20 22 03/04/2022 COMPR EHENS JAYNE METAB OLIC PANEL globulin 2.8 g/dL_ (calc ) 1.9-3. 7 normal Not Available [facility] [address] [place], [address], 03/04/2022 07:14:23 03/03/20 22 03/04/2022 COMPR EHENS JAYNE METAB OLIC PANEL albumin/glob ulin ratio 1.6 (calc ) 1.0-2. 5 normal Not Available [facility] [facility] [address] [place], [address], 03/04/2022 07:14:23 03/03/20 22 03/04/2022 COMPR EHENS JAYNE METAB OLIC PANEL bilirubin, total 0.6 mg/dL 0.2-1. 2 normal Not Available [facility] [employer] [facility] [address] [place], [address], 03/04/2022 07:14:23 03/03/20 22 03/04/2022 COMPR EHENS JAYNE METAB OLIC PANEL alkaline phosphatase 97 U/L 37-153 normal Not Available [facility] [employer] [facility] [address] [place], [address], 03/04/2022 07:14:23 03/03/20 22 03/04/2022 COMPR EHENS JAYNE METAB OLIC PANEL AST 14 U/L 10-35 normal Not Available [employer] [facility] [address] [place], [address], 03/04/2022 07:14:23 03/03/20 22 03/04/2022 COMPR EHENS JAYNE METAB OLIC PANEL ALT 9 U/L 6-29 normal Not Available [employer] [facility] [address] [place], [address], 03/04/2022 07:14:23 03/03/20 22 03/04/2022 TSH TSH 3.73 mIU/L 0.40-4 .50 normal Not Available [employer] [facility] [address] [place], [address], 03/04/2022 07:14:24 03/03/20 22 03/04/2022 CBC (INCL UDES DIFF/ PLT) white blood cell count 7.3 thous and/u L 3.8-10 .8 normal Not Available [employer] [facility] [address] [place], [address], 03/04/2022 07:14:25 03/03/20 22 03/04/2022 CBC (INCL UDES DIFF/ PLT) red blood cell count 4.57 jojo on/uL 3.80-5 .10 normal Not Available [facility] [address] [facility] [place], [address], 03/04/2022 07:14:25 03/03/20 22 03/04/2022 CBC (INCL UDES DIFF/ PLT) hemoglobin 13.5 g/dL 11.7-1 5.5 normal Not Available [facility] [address] [facility] [place], [address], 03/04/2022 07:14:25 03/03/20 22 03/04/2022 CBC (INCL UDES DIFF/ PLT) hematocrit 39.8 % 35.0-4 5.0 normal Not Available [facility] [address] [place], [address], 03/04/2022 07:14:25 03/03/20 22 03/04/2022 CBC (INCL UDES DIFF/ PLT) MCV 87.1 fL 80.0-1 00.0 normal Not Available [facility] [address] [place], [address], 03/04/2022 07:14:25 03/03/20 22 03/04/2022 CBC (INCL UDES DIFF/ PLT) MCH 29.5 pg 27.0-3 3.0 normal Not Available [facility] [address] [place] [place], [address], 03/04/2022 07:14:25 03/03/20 22 03/04/2022 CBC (INCL UDES DIFF/ PLT) MCHC 33.9 g/dL 32.0-3 6.0 normal Not Available [facility] [address] [facility] [place] [place], [address], 03/04/2022 07:14:25 03/03/20 22 03/04/2022 CBC (INCL UDES DIFF/ PLT) RDW 13.0 % 11.0-1 5.0 normal Not Available [facility] [place] [facility] [address], [place], [address], 03/04/2022 07:14:25 03/03/20 22 03/04/2022 CBC (INCL UDES DIFF/ PLT) platelet count 230 thous and/u L 140-40 0 normal Not Available [facility] [place] [facility] [address], [place], [address], 03/04/2022 07:14:25 03/03/20 22 03/04/2022 CBC (INCL UDES DIFF/ PLT) MPV 10.3 fL 7.5-12 .5 normal Not Available [facility] [place] [facility] [address], [place], [address], 03/04/2022 07:14:25 03/03/20 22 03/04/2022 CBC (INCL UDES DIFF/ PLT) absolute neutrophils 4460 cells /uL 1500-7 800 normal Not Available [facility] [place] [facility] [address], [place], [address], 03/04/2022 07:14:25 03/03/20 22 03/04/2022 CBC (INCL UDES DIFF/ PLT) absolute lymphocytes 2066 cells /uL 850-39 00 normal Not Available [facility] [place] [facility] [address], [place], [address], 03/04/2022 07:14:25 03/03/20 22 03/04/2022 CBC (INCL UDES DIFF/ PLT) absolute monocytes 475 cells /uL 200-95 0 normal Not Available [facility] [place] [facility] [address], [place], [address], 03/04/2022 07:14:25 03/03/20 22 03/04/2022 CBC (INCL UDES DIFF/ PLT) absolute eosinophils 248 cells /uL 15-500 normal Not Available [facility] [place] [facility] [address], [place], [address], 03/04/2022 07:14:25 03/03/20 22 03/04/2022 CBC (INCL UDES DIFF/ PLT) absolute basophils 51 cells /uL 0-200 normal Not Available [facility] [place] [facility] [address], [place], [address], 03/04/2022 07:14:25 03/03/20 22 03/04/2022 CBC (INCL UDES DIFF/ PLT) neutrophils 61.1 % normal Not Available [facility] [place] [facility] [address], [place], [address], 03/04/2022 07:14:25 03/03/20 22 03/04/2022 CBC (INCL UDES DIFF/ PLT) lymphocytes 28.3 % normal Not Available [facility] [place] [facility] [address], [place], [address], 03/04/2022 07:14:25 03/03/20 22 03/04/2022 CBC (INCL UDES DIFF/ PLT) monocytes 6.5 % normal Not Available [facility] [place] [facility] [address], [place], [address], 03/04/2022 07:14:25 03/03/20 22 03/04/2022 CBC (INCL UDES DIFF/ PLT) eosinophils 3.4 % normal Not Available [facility] [place] [facility] [address], [place], [address], 03/04/2022 07:14:25 03/03/20 22 03/04/2022 CBC (INCL UDES DIFF/ PLT) basophils 0.7 % normal Not Available [facility] [place] [facility] [address], [place], [address], 03/04/2022 07:14:25 05/06/19 23 05/06/2022 urina lysis , dipst ick Leukocytes Negati ve Not Available [facility] [address] [place], [address], 05/05/2022 15:23:02 05/06/19 23 05/06/2022 urina lysis , dipst ick Nitrite negati ve Not Available [facility] [address] [place], [address], 05/05/2022 15:23:02 05/06/19 23 05/06/2022 urina lysis , dipst ick Urobilinogen .2 Not Available [facility] [address] [place], [address], 05/05/2022 15:23:02 05/06/19 23 05/06/2022 urina lysis , dipst ick Protein Negati ve Not Available [facility] [address] [place], [address], 05/05/2022 15:23:02 05/06/19 23 05/06/2022 urina lysis , dipst ick pH 6.0 Not Available [facility] [address] [place], [address], 05/05/2022 15:23:02 05/06/19 23 05/06/2022 urina lysis , dipst ick Blood Negati ve Not Available [facility] [address] [place], [address], 05/05/2022 15:23:02 05/06/19 23 05/06/2022 urina lysis , dipst ick Specific [place] 1.010 Not Available [facility] [address] [place], [address], 05/05/2022 15:23:02 05/06/19 23 05/06/2022 urina lysis , dipst ick Ketone Negati ve Not Available [facility] [address] [place], [address], 05/05/2022 15:23:02 05/06/19 23 05/06/2022 urina lysis , dipst ick Bilirubin Negati ve Not Available [facility] [address] [place], [address], 05/05/2022 15:23:02 05/06/19 23 05/06/2022 urina lysis , dipst ick Glucose Negati ve Not Available [facility] [address] [place], [address], 05/05/2022 15:23:02 11/25/19 23 11/25/2022 LIPID PANEL , STAND SARAH cholesterol, total 294 mg/dL <200 high Not Available [facility] [place] [facility] [address] [place], [address], 11/25/2022 08:30:31 11/25/19 23 11/25/2022 LIPID PANEL , STAND SARAH HDL cholesterol 43 mg/dL > or = 50 low Not Available [facility] [place] [facility] [address] [place], [address], 11/25/2022 08:30:31 11/25/19 23 11/25/2022 LIPID PANEL , STAND SARAH triglyceride s 286 mg/dL <150 high If a non-f astin g speci men was colle cted, consi jose daniel repea t trigl yceri de testi ng on a fasti ng speci men if clini pavel indic ated. Troy franklin et al. J. of Clin. Lipid ol. 2015; 9:129 -169. Not Available [facility] [place] [facility] [address] [facility] [place] [place], [address], 11/25/2022 08:30:31 11/25/19 23 11/25/2022 LIPID PANEL , STAND SARAH LDL-choleste rol 200 mg/dL _(camilla c) high LDL-C level s > or = 190 mg/dL may indic ate famil ial hyper milagros stero lemia (FH). Clini camilla asses sment and measu remen t of blood lipid level s shoul d be consi dered for all first degre e relat quoc of patie nts with an FH diagn osis. LDL Milagros stero l (LDL- C) level s > or = 300 mg/dL may indic ate homoz ygous famil ial hyper milagros stero lemia (HoFH ). Untre ated, these extre darrius high LDL-C level s can resul t in joan ture CV event s and morta lity. Patie nts shoul d be ident ified early and provi ded appro priat e inter venti ons to reduc e the cumul ative LDL-C burde n from . For quest ions about testi ng for famil ial hyper milagros stero lemia , pleas e call [facility] at 1.866 .GENE .INFO . Troy franklin T, et al. J Natio nal Lipid Assoc iatio n Recom menda tions for Patie nt-Ce ntere d Manag ement of Dysli pidem ia: Part 1 Journ al of Clini camilla Lipid ology 2015; 9(2), 129-1 69. Shira Brewer. et al. (2014 ). Homoz ygous famil ial hyper milagros stero laemi a: new insig hts and nate nce for clini cians to impro ve detec tion and clini camilla manag ement . Europ dawson Heart Journ al, 35(88 ), 7202- 2739. Refer ence range : <100 Louis able range <100 mg/dL for prima ry preve ntion ; <70 mg/dL for patie nts with CHD or diabe tic patie nts with > or = 2 CHD risk facto rs. LDL-C is now calcu lated using the Anna n-Hop kins calcu latio n, which is a valid ated novel metho d provi ding john r accur acy than the Fried deb equat ion in the estim ation of LDL-C . Anna n SS et al. MORIAH. 2013; 310(1 9): 2061- 2068 (http ://ed dee deeati on.Natasha high [employer]. com/f aq/FA Q164) Not Available [facility] [place] [facility] [address] [facility], [place], [address], 11/25/2022 08:30:31 11/25/19 23 11/25/2022 LIPID PANEL , STAND SARAH chol/HDLC ratio 6.8 (calc ) <5.0 high Not Available [facility] [place] [facility] [address] [facility], [place], [address], 11/25/2022 08:30:31 11/25/19 23 11/25/2022 LIPID PANEL , STAND SARAH non HDL cholesterol 251 mg/dL _(camilla c) <130 high Non-H DL level > or = 220 is very high and may indic ate charlene ic famil ial hyper milagros stero lemia (FH). Clini camilla asses sment and measu remen t of blood lipid level s shoul d be consi dered for all first -degr ee relat quoc of patie nts with an FH diagn osis. For patie nts with diabe damian plus 1 major ASCVD risk facto r, treat ing to a non-H DL-C goal of <100 mg/dL (LDL- C of <70 mg/dL ) is consi dered a thera peuti c optio n. Not Available [facility] [place] [facility] [address] [facility], [place], [address], 11/25/2022 08:30:31 11/25/1911/25/2022 COMPR EHENS JAYNE METAB OLIC PANEL glucose 151 mg/dL 65-99 high Fasti ng refer ence inter andreea For someo ne witho ut known diabe damian, a gluco se value >125 mg/dL indic ates that they may have diabe damian and this shoul d be confi rmed with a follo w-up test. Not Available [facility] [place] [facility] [address] [place], [address], 11/25/2022 08:30:31 11/25/19 23 11/25/2022 COMPR EHENS JAYNE METAB OLIC PANEL urea nitrogen (BUN) 19 mg/dL 7-25 normal Not Available [facility] [address] [place], [address], 11/25/2022 08:30:31 11/25/19 23 11/25/2022 COMPR EHENS JAYNE METAB OLIC PANEL creatinine 1.22 mg/dL 0.60-0 .95 high Not Available [facility] [address] [place], [address], 11/25/2022 08:30:31 11/25/19 23 11/25/2022 COMPR EHENS JAYNE METAB OLIC PANEL eGFR 43 mL/mi n/1.7 3m2 > or = 60 low Not Available [facility] [address] [place], [address], 11/25/2022 08:30:31 11/25/19 23 11/25/2022 COMPR EHENS JAYNE METAB OLIC PANEL BUN/creatini ne ratio 16 (calc ) 6-22 normal Not Available [facility] [address] [place], [address], 11/25/2022 08:30:31 11/25/19 23 11/25/2022 COMPR EHENS JAYNE METAB OLIC PANEL sodium 140 mmol/ L 135-14 6 normal Not Available [facility] [address] [place], [address], 11/25/2022 08:30:31 11/25/19 23 11/25/2022 COMPR EHENS JAYNE METAB OLIC PANEL potassium 3.6 mmol/ L 3.5-5. 3 normal Not Available [facility] [address] [place], [address], 11/25/2022 08:30:31 11/25/19 23 11/25/2022 COMPR EHENS JAYNE METAB OLIC PANEL chloride 101 mmol/ L 98-110 normal Not Available [facility] [address], [address], 11/25/2022 08:30:31 11/25/19 23 11/25/2022 COMPR EHENS JAYNE METAB OLIC PANEL carbon dioxide 30 mmol/ L 20-32 normal Not Available [facility] [address] [place], [address], 11/25/2022 08:30:31 11/25/19 23 11/25/2022 COMPR EHENS JAYNE METAB OLIC PANEL calcium 9.6 mg/dL 8.6-10 .4 normal Not Available [facility] [address] [facility] [address] [place], [address], 11/25/2022 08:30:31 11/25/19 23 11/25/2022 COMPR EHENS JAYNE METAB OLIC PANEL protein, total 7.1 g/dL 6.1-8. 1 normal Not Available [facility] [address] [facility] [place], [address], 11/25/2022 08:30:31 11/25/19 23 11/25/2022 COMPR EHENS JAYNE METAB OLIC PANEL albumin 4.1 g/dL 3.6-5. 1 normal Not Available [facility] [address] [place], [address], 11/25/2022 08:30:31 11/25/19 23 11/25/2022 COMPR EHENS JAYNE METAB OLIC PANEL globulin 3.0 g/dL_ (calc ) 1.9-3. 7 normal Not Available [facility] [address] [place], [address], 11/25/2022 08:30:31 11/25/19 23 11/25/2022 COMPR EHENS JAYNE METAB OLIC PANEL albumin/glob ulin ratio 1.4 (calc ) 1.0-2. 5 normal Not Available [facility] [address] [facility] [address] [place], [address], 11/25/2022 08:30:31 11/25/19 23 11/25/2022 COMPR EHENS JAYNE METAB OLIC PANEL bilirubin, total 0.9 mg/dL 0.2-1. 2 normal Not Available [facility] [address] [place], [address], 11/25/2022 08:30:31 11/25/19 23 11/25/2022 COMPR EHENS JAYNE METAB OLIC PANEL alkaline phosphatase 89 U/L 37-153 normal Not Available [facility] [employer] [facility] [address] [place] [place], [address], 11/25/2022 08:30:31 11/25/19 23 11/25/2022 COMPR EHENS JAYNE METAB OLIC PANEL AST 14 U/L 10-35 normal Not Available [facility] [address] [place] [place], [address], 11/25/2022 08:30:31 11/25/19 23 11/25/2022 COMPR EHENS JAYNE METAB OLIC PANEL ALT 8 U/L 6-29 normal Not Available [employer] [facility] [address] [place] [place], [address], 11/25/2022 08:30:31 11/25/19 23 11/25/2022 TSH TSH 5.83 mIU/L 0.40-4 .50 high Not Available [employer] [facility] [address] [place] [place], [address], 11/25/2022 08:30:32 11/25/19 23 11/25/2022 CBC (INCL UDES DIFF/ PLT) white blood cell count 8.0 thous and/u L 3.8-10 .8 normal Not Available [facility] [place] [facility] [address] [facility] [place] [place], [address], 11/25/2022 08:30:39 11/25/19 23 11/25/2022 CBC (INCL UDES DIFF/ PLT) red blood cell count 4.43 jojo on/uL 3.80-5 .10 normal Not Available [facility] [address] [facility] [place] [place], [address], 11/25/2022 08:30:39 11/25/1911/25/2022 CBC (INCL UDES DIFF/ PLT) hemoglobin 13.1 g/dL 11.7-1 5.5 normal Not Available [facility] [address] [place], [address], 11/25/2022 08:30:39 11/25/19 23 11/25/2022 CBC (INCL UDES DIFF/ PLT) hematocrit 40.3 % 35.0-4 5.0 normal Not Available [facility] [address] [place] [place], [address], 11/25/2022 08:30:39 11/25/1911/25/2022 CBC (INCL UDES DIFF/ PLT) MCV 91.0 fL 80.0-1 00.0 normal Not Available [facility] [address] [place] [place], [address], 11/25/2022 08:30:39 11/25/1911/25/2022 CBC (INCL UDES DIFF/ PLT) MCH 29.6 pg 27.0-3 3.0 normal Not Available [facility] [address] [place], [address], 11/25/2022 08:30:39 11/25/19 23 11/25/2022 CBC (INCL UDES DIFF/ PLT) MCHC 32.5 g/dL 32.0-3 6.0 normal Not Available [facility] [address] [place] [place], [address], 11/25/2022 08:30:39 11/25/19 23 11/25/2022 CBC (INCL UDES DIFF/ PLT) RDW 13.6 % 11.0-1 5.0 normal Not Available [facility] [address] [place], [address], 11/25/2022 08:30:39 11/25/19 23 11/25/2022 CBC (INCL UDES DIFF/ PLT) platelet count 229 thous and/u L 140-40 0 normal Not Available [facility] [address] [place] [place], [address], 11/25/2022 08:30:39 11/25/19 23 11/25/2022 CBC (INCL UDES DIFF/ PLT) MPV 9.6 fL 7.5-12 .5 normal Not Available [facility] [address] [place], [address], 11/25/2022 08:30:39 11/25/19 23 11/25/2022 CBC (INCL UDES DIFF/ PLT) absolute neutrophils 4064 cells /uL 1500-7 800 normal Not Available [facility] [address] [place], [address], 11/25/2022 08:30:39 11/25/19 23 11/25/2022 CBC (INCL UDES DIFF/ PLT) absolute lymphocytes 3256 cells /uL 850-39 00 normal Not Available [facility] [address] [place], [address], 11/25/2022 08:30:39 11/25/19 23 11/25/2022 CBC (INCL UDES DIFF/ PLT) absolute monocytes 440 cells /uL 200-95 0 normal Not Available [facility] [address], [place], [address], 11/25/2022 08:30:39 11/25/19 23 11/25/2022 CBC (INCL UDES DIFF/ PLT) absolute eosinophils 200 cells /uL 15-500 normal Not Available [facility] [place] [facility] [address], [place], [address], 11/25/2022 08:30:39 11/25/19 23 11/25/2022 CBC (INCL UDES DIFF/ PLT) absolute basophils 40 cells /uL 0-200 normal Not Available [facility] [place] [facility] [address], [place], [address], 11/25/2022 08:30:39 11/25/19 23 11/25/2022 CBC (INCL UDES DIFF/ PLT) neutrophils 50.8 % normal Not Available [facility] [place] [facility] [address], [place], [address], 11/25/2022 08:30:39 11/25/19 23 11/25/2022 CBC (INCL UDES DIFF/ PLT) lymphocytes 40.7 % normal Not Available [facility] [place] [facility] [address], [place], [address], 11/25/2022 08:30:39 11/25/19 23 11/25/2022 CBC (INCL UDES DIFF/ PLT) monocytes 5.5 % normal Not Available [facility] [place] [facility] [address], [place], [address], 11/25/2022 08:30:39 11/25/19 23 11/25/2022 CBC (INCL UDES DIFF/ PLT) eosinophils 2.5 % normal Not Available [facility] [place] [facility] [address], [place], [address], 11/25/2022 08:30:39 11/25/19 23 11/25/2022 CBC (INCL UDES DIFF/ PLT) basophils 0.5 % normal Not Available [facility] [place] [facility] [address] [place], [address], 11/25/2022 08:30:39 01/07/2001/08/2024 LIPID PANEL , STAND SARAH cholesterol, total 306 mg/dL <200 high Not Available [facility] [place] [facility] [address] [place], [address], 01/08/2024 08:01:45 01/07/2001/08/2024 LIPID PANEL , STAND SARAH HDL cholesterol 53 mg/dL > or = 50 normal Not Available [facility] [place] [facility] [address] [place], [address], 01/08/2024 08:01:45 01/07/2001/08/2024 LIPID PANEL , STAND SARAH triglyceride s 184 mg/dL <150 high Not Available [facility] [place] [facility] [address] [facility], [place], [address], 01/08/2024 08:01:45 01/07/2001/08/2024 LIPID PANEL , STAND SARAH LDL-choleste rol 217 mg/dL _(camilla c) high LDL-C level s > or = 190 mg/dL may indic ate famil ial hyper milagros stero lemia (FH). Clini camilla asses sment and measu remen t of blood lipid level s shoul d be consi dered for all first degre e relat quoc of patie nts with an FH diagn osis. LDL Milagros stero l (LDL- C) level s > or = 300 mg/dL may indic ate homoz ygous famil ial hyper milagros stero lemia (HoFH ). Untre ated, these extre darrius high LDL-C level s can resul t in joan ture CV event s and morta lity. [facility] shoul d be ident if[facility] and provi ded appro priat e inter venti ons to reduc e the cumul ative LDL-C burde n from . For quest ions about testi ng for famil ial hyper milagros stero lemia , pleas e call [facility] at 1.866 .GENE .INFO . Troy franklin T, et al. J Natio nal Lipid Assoc iatio n Recom menda tions for Patie nt-Ce ntere d Manag ement of Dysli pidem ia: Part 1 Journ al of Clini camilla Lipid ology 2015; 9(2), 129-1 69. Shira Brewer. et al. (2014 ). Homoz ygous famil ial hyper milagros stero laemi a: new insig hts and nate nce for clini cians to impro ve detec tion and clini camilla manag ement . Europ dawson Heart Journ al, 3532 ), 2146- 215. Refer ence range : <100 Louis able range <100 mg/dL for prima ry preve ntion ; <70 mg/dL for patie nts with CHD or diabe tic patie nts with > or = 2 CHD risk facto rs. LDL-C is now calcu lated using the Anna n-Hop kins calcu latio n, which is a valid ated novel metho d provi nam arvizute r accur acy than the Fried deb equat ion in the estim ation of LDL-C . Anna n SS et al. MORIAH. 2013; 310(1 9): 2061- 2068 (http ://ed ucati on.Qu Waqas [employer] softwares. com/f aq/FA Q164) Not Available [employer] [facility] [place] [facility] [address], [place], [address], 01/08/2024 08:01:45 01/07/20 24 01/08/2024 LIPID PANEL , STAND SARAH chol/HDLC ratio 5.8 (calc ) <5.0 high Not Available [facility] [place] [facility] [address], [place], [address], 01/08/2024 08:01:45 01/07/20 24 01/08/2024 LIPID PANEL , STAND SARAH non HDL cholesterol 253 mg/dL _(camilla c) <130 high Non-H DL level > or = 220 is very high and may indic ate charlene ic famil ial hyper milagros stero lemia (FH). Clini camilla asses sment and measu remen t of blood lipid level s shoul d be consi dered for all first -degr ee relat quoc of patie nts with an FH diagn osis. For patie nts with diabe damian plus 1 major ASCVD risk facto r, treat ing to a non-H DL-C goal of <100 mg/dL (LDL- C of <70 mg/dL ) is consi dered a thera peuti c optio n. Not Available [facility] [place] [facility] [address] [place], [address], 01/08/2024 08:01:45 01/07/2001/08/2024 COMPR EHENS JAYNE METAB OLIC PANEL glucose 97 mg/dL 65-99 normal Fasti ng refer ence inter andreea Not Available [facility] [place] [facility] [address] [place], [address], 01/08/2024 08:01:47 01/07/2001/08/2024 COMPR EHENS JAYNE METAB OLIC PANEL urea nitrogen (BUN) 32 mg/dL 7-25 high Not Available [facility] [place] [facility] [address] [place], [address], 01/08/2024 08:01:47 01/07/2001/08/2024 COMPR EHENS JAYNE METAB OLIC PANEL creatinine 1.34 mg/dL 0.60-0 .95 high Not Available [facility] [place] [facility] [address] [place], [address], 01/08/2024 08:01:47 01/07/20 24 01/08/2024 COMPR EHENS JAYNE METAB OLIC PANEL eGFR 38 mL/mi n/1.7 3m2 > or = 60 low Not Available [facility] [place] [facility] [address] [place], [address], 01/08/2024 08:01:47 01/07/2001/08/2024 COMPR EHENS JAYNE METAB OLIC PANEL BUN/creatini ne ratio 24 (calc ) 6-22 high Not Available [facility] [address] [place], [address], 01/08/2024 08:01:47 01/07/2001/08/2024 COMPR EHENS JAYNE METAB OLIC PANEL sodium 143 mmol/ L 135-14 6 normal Not Available [facility] [address] [place], [address], 01/08/2024 08:01:47 01/07/2001/08/2024 COMPR EHENS JAYNE METAB OLIC PANEL potassium 3.8 mmol/ L 3.5-5. 3 normal Not Available [facility] [address] [place] [place], [address], 01/08/2024 08:01:47 01/07/2001/08/2024 COMPR EHENS JAYNE METAB OLIC PANEL chloride 106 mmol/ L 98-110 normal Not Available [facility] [address] [place] [place], [address], 01/08/2024 08:01:47 01/07/2001/08/2024 COMPR EHENS JAYNE METAB OLIC PANEL carbon dioxide 27 mmol/ L 20-32 normal Not Available [facility] [address] [place], [address], 01/08/2024 08:01:47 01/07/2001/08/2024 COMPR EHENS JAYNE METAB OLIC PANEL calcium 9.7 mg/dL 8.6-10 .4 normal Not Available [employer] [address] [place], [address], 01/08/2024 08:01:47 01/07/2001/08/2024 COMPR EHENS JAYNE METAB OLIC PANEL protein, total 7.0 g/dL 6.1-8. 1 normal Not Available [facility] [employer] [facility] [place] [facility] [address] [place], [address], 01/08/2024 08:01:47 01/07/2001/08/2024 COMPR EHENS JAYNE METAB OLIC PANEL albumin 4.3 g/dL 3.6-5. 1 normal Not Available [facility] [employer] [facility] [address], [place], [address], 01/08/2024 08:01:47 01/07/2001/08/2024 COMPR EHENS JAYNE METAB OLIC PANEL globulin 2.7 g/dL_ (calc ) 1.9-3. 7 normal Not Available [employer] [facility] [address], [place], [address], 01/08/2024 08:01:47 01/07/2001/08/2024 COMPR EHENS JAYNE METAB OLIC PANEL albumin/glob ulin ratio 1.6 (calc ) 1.0-2. 5 normal Not Available [facility] [employer] [facility] [address], [place], [address], 01/08/2024 08:01:47 01/07/2001/08/2024 COMPR EHENS JAYNE METAB OLIC PANEL bilirubin, total 0.6 mg/dL 0.2-1. 2 normal Not Available [facility] [address], [place], [address], 01/08/2024 08:01:47 01/07/2001/08/2024 COMPR EHENS JAYNE METAB OLIC PANEL alkaline phosphatase 82 U/L 37-153 normal Not Available [facility] [employer] [facility] [address], [place], [address], 01/08/2024 08:01:47 01/07/2001/08/2024 COMPR EHENS JAYNE METAB OLIC PANEL AST 14 U/L 10-35 normal Not Available [facility] [place] [facility] [address], [place], [address], 01/08/2024 08:01:47 01/07/2001/08/2024 COMPR EHENS JAYNE METAB OLIC PANEL ALT 5 U/L 6-29 low Not Available [facility] [place] [facility] [address], [place], [address], 01/08/2024 08:01:47 01/07/2001/08/2024 TSH TSH 7.72 mIU/L 0.40-4 .50 high Not Available [facility] [address], [place], [address], 01/08/2024 08:01:48 01/07/2001/08/2024 CBC (INCL UDES DIFF/ PLT) white blood cell count 6.8 thous and/u L 3.8-10 .8 normal Not Available [facility] [place] [facility] [address], [place], [address], 01/08/2024 08:01:48 01/07/2001/08/2024 CBC (INCL UDES DIFF/ PLT) red blood cell count 4.38 jojo on/uL 3.80-5 .10 normal Not Available [facility] [place] [facility] [address], [place], [address], 01/08/2024 08:01:48 01/07/2001/08/2024 CBC (INCL UDES DIFF/ PLT) hemoglobin 12.9 g/dL 11.7-1 5.5 normal Not Available [facility] [address], [place], [address], 01/08/2024 08:01:48 01/07/2001/08/2024 CBC (INCL UDES DIFF/ PLT) hematocrit 40.1 % 35.0-4 5.0 normal Not Available [facility] [place] [facility] [address] [facility] [facility], [place], [address], 01/08/2024 08:01:48 01/07/2001/08/2024 CBC (INCL UDES DIFF/ PLT) MCV 91.6 fL 80.0-1 00.0 normal Not Available [facility] [place] [facility] [address] [facility] [facility], [place], [address], 01/08/2024 08:01:48 01/07/2001/08/2024 CBC (INCL UDES DIFF/ PLT) MCH 29.5 pg 27.0-3 3.0 normal Not Available [facility] [place] [facility] [address] [facility] [place], [address], 01/08/2024 08:01:48 01/07/2001/08/2024 CBC (INCL UDES DIFF/ PLT) MCHC 32.2 g/dL 32.0-3 6.0 normal For adult s, a sligh t decre ase in the calcu lated MCHC value (in the range of 30 to 32 g/dL) is most likel y not clini pavel signi fican t; cheryl er, it shoul d be inter prete d with cauti on in corre lat n with other red cell nelda eters and the patie nt's clini camilla condi tion. Not Available [facility] [place] [facility] [address] [facility], [place], [address], 01/08/2024 08:01:48 01/07/2001/08/2024 CBC (INCL UDES DIFF/ PLT) RDW 13.4 % 11.0-1 5.0 normal Not Available [facility] [place] [facility] [address], [place], [address], 01/08/2024 08:01:48 01/07/2001/08/2024 CBC (INCL UDES DIFF/ PLT) platelet count 241 thous and/u L 140-40 0 normal Not Available [facility] [address] [place], [address], 01/08/2024 08:01:48 01/07/2001/08/2024 CBC (INCL UDES DIFF/ PLT) MPV 9.7 fL 7.5-12 .5 normal Not Available [facility] [address] [place], [address], 01/08/2024 08:01:48 01/07/2001/08/2024 CBC (INCL UDES DIFF/ PLT) absolute neutrophils 4257 cells /uL 1500-7 800 normal Not Available [facility] [address] [facility] [place], [address], 01/08/2024 08:01:48 01/07/2001/08/2024 CBC (INCL UDES DIFF/ PLT) absolute lymphocytes 1924 cells /uL 850-39 00 normal Not Available [facility] [address] [place], [address], 01/08/2024 08:01:48 01/07/2001/08/2024 CBC (INCL UDES DIFF/ PLT) absolute monocytes 428 cells /uL 200-95 0 normal Not Available [facility] [address] [place], [address], 01/08/2024 08:01:48 01/07/2001/08/2024 CBC (INCL UDES DIFF/ PLT) absolute eosinophils 143 cells /uL 15-500 normal Not Available [facility] [address] [place], [address], 01/08/2024 08:01:48 01/07/20 24 01/08/2024 CBC (INCL UDES DIFF/ PLT) absolute basophils 48 cells /uL 0-200 normal Not Available [facility] [address] [facility], [place], [address], 01/08/2024 08:01:48 01/07/2001/08/2024 CBC (INCL UDES DIFF/ PLT) neutrophils 62.6 % normal Not Available [facility] [place] [facility] [address] [facility] [place], [address], 01/08/2024 08:01:48 01/07/2001/08/2024 CBC (INCL UDES DIFF/ PLT) lymphocytes 28.3 % normal Not Available [facility] [place] [facility] [address] [facility], [place], [address], 01/08/2024 08:01:48 01/07/2001/08/2024 CBC (INCL UDES DIFF/ PLT) monocytes 6.3 % normal Not Available [facility] [place] [facility] [address] [facility], [place], [address], 01/08/2024 08:01:48 01/07/2001/08/2024 CBC (INCL UDES DIFF/ PLT) eosinophils 2.1 % normal Not Available [facility] [place] [facility] [address] [facility], [place], [address], 01/08/2024 08:01:48 01/07/2001/08/2024 CBC (INCL UDES DIFF/ PLT) basophils 0.7 % normal Not Available [facility] [place] [facility] [address] [facility], [place], [address], 01/08/2024 08:01:48 Result Notes None recorded. Problems Name Problem SNOMED Code Status Onset Date Resolution Date Notes Provider Name and Address Organization Details Recorded Time Dermatophytosi s of the body Active Kathy Torres MD [address] [facility], [address], [place], [address] [facility] [employer] [facility] [employer] 6 11:43:57 Colitis, enteritis and gastroenteriti s presumed infectious 097918240 Active Kathy Torres MD [address] [address], [employer] [facility] 6 11:43:57 Gastroesophage al reflux disease 185186112 Active Kathy Torres MD [address] [address], [employer] [facility] 6 11:43:57 Cellulitis and abscess of buttock 027689520 Active Kathy Torres MD [address] [address], [employer] [facility] 6 11:43:57 Right lower quadrant pain 822449980 Active Kathy Torres MD [address] [address], [employer] [facility] 6 11:43:57 Urinary tract infectious disease 36025508 Active Kathy Torres MD [address] [address], [employer] 6 11:43:57 Benign essential hypertension 2883150 Active Kathy Torres MD [address] [address], [facility] 6 21:31:44 Contusion of foot 08333743 Active Kathy Torres MD [address] [address], [facility] 6 11:43:57 Disorder of urinary tract 41996426 Active Kathy Torres MD [address] [address], [facility] 6 11:43:57 Hypo-osmolalit y and or hyponatremia [id number] Arnold Torres MD [address] [address], [place] - [facility] 6 11:43:57 Abscess of Bartholin's gland [id number] Arnold Torres MD [address] [address], [place] - [facility] 6 11:43:57 Adverse reaction to drug [id number] Arnold Torres MD [address] [address], [place] - [facility] 6 11:43:57 Abdominal pain 94530485 Arnold Torres MD [address] [address], [place] - [facility] 6 11:43:57 Candidiasis [id number] Arnold Torres MD [address] [address], [place] - [facility] 6 11:43:57 Chest pain [id number] Arnold Torres MD [address] [address], [place] - [facility] 6 11:43:57 Edema [id number] Arnold Torres MD [address] [address], [place] - [facility] 6 11:43:57 Hyperlipidemia 57358840 Arnold Torres MD [address] [address], [place] - [facility] 6 21:31:44 Diseases of mitral and aortic valves 442812203 Arnold Torres MD [address] [address], [facility] 6 11:43:57 Acute bronchitis 41220695 Active Kathy Torres MD [address] [address], [place] [facility] 6 11:43:57 Malaise and fatigue 701747338 Active Kathy Torres MD [address] [address], [facility] 6 11:43:57 Disorder of foot 865791761 Active Kathy Torres MD [address] [address], [facility] 6 11:43:57 Cellulitis of leg, excluding foot 315750812 Active Kathy Torres MD [address] [address], [facility] 6 11:43:57 Pelvic mass 05120815 Active Kathy Torres MD [address] [address], [facility] 6 11:43:57 Osteoarthritis of wrist 573780001 Active Kathy Torres MD [address] [address], [facility] 6 11:43:57 Strain of muscle and/or tendon of wrist Active Kathy Torres MD [address] [address], [facility] 6 11:43:57 Strain of muscle and/or tendon of hand Active Kathy Torres MD [address] [address], [facility] 6 11:43:57 Superficial injury of hand 631624682 Arnold Torres MD [address] [address], [facility] 6 11:43:57 Pain of joint of wrist 614766659 Arnold Torres MD [address] [address], [facility] 6 11:43:57 Infection of skin and/or subcutaneous tissue 58054386 Active Kathy Torres MD [address] [address], [facility] 6 11:43:57 Edema of foot 430207163 Arnold Torres MD [address] [address], [facility] 6 11:43:57 Staphylococcal infectious disease 76740852 Active Kathy Torres MD [address] [address], [facility] 6 11:43:57 Hand eczema [id number] Arnold Torres MD [address] [address], [facility] 6 11:43:57 Colitis [id number] Arnold Torres MD [address] [address], [facility] 6 11:43:57 Generalized osteoarthritis 094394437 Active Kathy Torres MD [address] [address], [facility] 6 11:43:57 Osteoarthritis of joint of hand 79581657 Active Kathy Torres MD [address] [address], [place], [place], [address] [place] [address], [facility] 6 21:31:44 Osteoarthritis 269606054 Active Kathy Torres MD [address], [address] [place] [address], [facility] 6 21:31:44 Atrial fibrillation 21096934 Active 2017 Kathy Torres MD [address], [address] [place] [address], [facility] 8 16:39:20 Problem Notes None recorded. Procedures Surgical History Date Name Laterality Status Provider Name and Address Organization Details Recorded Time 02/11/20 17 Cardiac Surgery completed Kathy Torres MD [address], [address] [place] [address], [facility] 03/05/2017 20:35:42 07/11/19 17 Cardiac Surgery completed Kathy Torres MD [address], [address] [place] [address], [facility] 03/05/2017 20:36:51 03/30/19 14 Other completed Kathy Torres MD [address], [address] [place] [address], [facility] 11/11/2013 11:22:16 08/08/19 12 Colonoscopy completed [facility] 05/03/2013 11:06:47 03/30/19 11 Other completed [facility] 03/03/2011 11:50:52 03/30/18 80 Hysterectomy completed [facility] 03/03/2011 11:50:52 03/30/18 54 Removal of ovarian cyst(s) completed [facility] 03/03/2011 11:50:52 03/30/18 49 Appendectomy completed [facility] 03/03/2011 11:50:52 Breast Surgery completed Kathy Torres MD 2016 [facility], [facility], [place], [address], [facility] 03/03/2011 13:09:30 Imaging Results None recorded. Procedure Notes None recorded. Medical Equipment None Reported. Allergies Allergen ID Allergen Name Allergen Category Reaction Reaction Severity Criticality Documentation Date Start Date Code Code System Note Provider Name and Address Organization Details Recorded Time 26756 Cipro medicatio n itching Not available Not available 02/05/2012 3 RxNorm Kathy Torres MD 2016 [facility], [facility], [place], [address], [facility] 2 20:43:40 4782 Zocor medicatio n other mild Not available 03/03/2011 37703 3 RxNorm GI upset --ALL MILAGROS STERO L MEDS [facility] 1 11:50:52 Medications Name Sig Start Date Stop Date Status Note LastModified by Organization Details LastModified Time eye drop cup with guide active Not Available Not Available Not Available aspirin low dose 81mg ec 1 PO daily 07/28 completed Not Available Not Available Not Available nasal decongest ant spray 02/10 completed Not Available Not Available Not Available eye care vitamins active Not Available Not Available Not Available melatonin 5 mg occasion ally 08/07 completed Not Available Not Available Not Available triple antibioti c ointment plu active Not Available Not Available Not Available losartan 50 mg tablet 1 po daily 08/07 completed Not Available Not Available Not Available nifedipin e ER 30 mg tablet,ex tended release 24 hr active Not Available Not Available Not Available amoxicill in 500 mg capsule active Not Available Not Available Not Available furosemid e 40 mg tablet TAKE 1 TABLET EVERY DAY 08/07 completed Not Available Not Available Not Available propafeno ne 150 mg tablet TAKE 1 TABLET BY MOUTH TWICE A DAY 07/15 completed Not Available Not Available Not Available doxycycli ne hyclate 100 mg capsule TAKE ONE CAPSULE BY MOUTH TWICE A DAY FOR 10 DAYS 08/09 completed Not Available Not Available Not Available donepezil 5 mg tablet 08/07 completed Not Available Not Available Not Available Carafate 100 mg/mL oral suspensio n TAKE 10 MILLILIT ER TWO TIMES DAILY 08/07 completed Not Available Not Available Not Available bumetanid e 2 mg tablet TAKE 1 TABLET BY MOUTH EVERY DAY 08/09 completed Not Available Not Available Not Available tizanidin e 2 mg tablet TAKE 1 OR 2 TABLETS BY MOUTH EVERY EVENING NEEDED FOR MUSCLE SPASMS 06/09 completed Not Available Not Available Not Available lisinopri l 20 mg-hydroc hlorothia zide 12.5 mg tablet Take 1 tablet every day by oral route for 90 days. active Not Available Not Available No t Available azithromy nicolle 250 mg tablet Take 2 tablets (500 mg) by oral route once daily for 1 day then 1 tablet (250 mg) by oral route once daily for 4 days active Not Available Not Available No t Available metoprolo l tartrate 100 mg tablet TAKE 1 TABLET BY MOUTH TWICE A DAY 08/07 completed Not Available Not Available Not Available fluconazo le 150 mg tablet TAKE 1 TABLET EVERY WEEK BY ORAL ROUTE NEEDED FOR 28 DAYS. active Not Available Not Available No t Available amiodaron e 200 mg tablet 08/02 completed Not Available Not Available Not Available metoprolo l succinate ER 50 mg tablet,ex tended release 24 hr TAKE ONE TABLET BY MOUTH DAILY active Not Available Not Available No t Available citalopra m 10 mg tablet 08/07 completed Not Available Not Available Not Available hydrocodo ne 5 mg-acetam inophen 325 mg tablet TAKE 1 TABLET BY MOUTH EVERY 6 HOURS NEEDED 08/09 completed Not Available Not Available Not Available fluconazo le 200 mg tablet active Not Available Not Available Not Available metronida zole 250 mg tablet TAKE 1 TABLET BY MOUTH EVERY 6 HOURS FOR 10 DAYS 02/04 completed Not Available Not Available Not Available acetamino phen 300 mg-codein e 30 mg tablet TAKE 1 TABLET EVERY 6 HOURS NEEDED 08/09 completed Not Available Not Available Not Available ciproflox acin 250 mg tablet Take 1 tablet every 12 hours by oral route. active Not Available Not Available No t Available amlodipin e 5 mg tablet Take 1 tablet twice a day by oral route. 12/28 completed Not Available Not Available Not Available ciproflox acin 500 mg tablet active Not Available Not Available No t Available sulfameth oxazole 800 mg-trimet hoprim 160 mg tablet TAKE 1 TABLET BY MOUTH TWICE A DAY FOR 7 DAYS 01/13 completed Not Available Not Available Not Available peg-elect rolyte solution 420 gram oral solution 03/29 completed Not Available Not Available Not Available Endocet 5 mg-325 mg tablet active Not Available Not Available Not Available minoxidil 2.5 mg tablet TAKE 1 TABLET TWICE DAILY 08/24 completed Not Available Not Available Not Available aspirin 81 mg tablet,de layed release Take 1 tablet every day by oral route. active Not Available Not Available No t Available triamcino lone acetonide 0.1 % topical cream APPLY A THIN LAYER TO THE AFFECTED AREA(S) BY TOPICAL ROUTE 2 TIMES PER DAY 01/26 completed Not Available Not Available Not Available losartan 100 mg-hydroc hlorothia zide 25 mg tablet Take 1 tablet every day by oral route. active Not Available Not Available No t Available alprazola m 0.5 mg tablet 09/13 completed Not Available Not Available Not Available flaxseed oil 1,000 mg capsule Take by oral route. 08/25 completed Not Available Not Available Not Available ceftriaxo ne 1 gram solution for injection 2011 active Rocephin Not Available Not Available Not Avai lable prednisol one acetate 1 % [facility] 08/07 completed Not Available Not Available Not Available amiodaron e 400 mg tablet TAKE 1 TABLETS BY MOUTH DAILY 08/02 completed Not Available Not Available Not Available Synthroid 25 mcg tablet Take 1 tablet every day by oral route for 28 days. 08/02 completed Not Available Not Available Not Available amlodipin e 10 mg tablet active Not Available Not Available Not Available benzonata te 100 mg capsule TAKE ONE CAPSULE BY MOUTH 3 TIMES A DAY NEEDED 08/30 completed Not Available Not Available Not Available levothyro xine 50 mcg tablet TAKE ONE TABLET EVERY MORNING ON AN EMPTY STOMACH AND DO NOT CONSUME ANY FOOD FOR THIRTY MINUTES 08/07 completed Not Available Not Available Not Available cephalexi n 500 mg capsule TAKE 2 CAPSULES EVERY 12 HOURS BY MOUTH FOR 10 DAYS active Not Available Not Available No t Available erythromy nicolle 5 mg/gram (0.5 %) eye ointment PLEASE SEE ATTACHED FOR DETAILED DIRECTIO NS 01/13 completed Not Available Not Available Not Available neomycin- polymyxin -dexameth 3.5 mg/mL-10, 000 unit/mL-0 .1% eye drops 05/21 completed Not Available Not Available Not Available nystatin 100,000 unit/gram topical cream APPLY TWICE A DAY BY TOPICAL ROUTE NEEDED FOR 20 DAYS. active Not Available Not Available No t Available clotrimaz ole-betam ethasone 1 %-0.05 % topical cream APPLY TO AFFECTED AREA AND SURROUND ING AREAS TWICE A DAY (AM AND PM)X 2WEEKS 05/29 completed Not Available Not Available Not Available fluoromet holone 0.1 % eye drops,[facility] penon 08/02 completed Not Available Not Available Not Available promethaz ine 25 mg tablet active Not Available Not Available Not Available losartan 25 mg tablet TAKE 1 TABLET BY MOUTH EVERY DAY active Not Available Not Available No t Available Aquaphor topical ointment use as needed and every night. 08/09 completed Not Available Not Available Not Available metoprolo l tartrate 50 mg tablet 09/02 completed dose changed Not Available Not Available Not Available triamtere ne 37.5 mg-hydroc hlorothia zide 25 mg tablet Take 0.5 tablets every day by oral route for 90 days. active Not Available Not Available No t Available omeprazol e 20 mg capsule,d elayed release TAKE 1 CAPSULE BY MOUTH TWICE A DAY 08/09 completed Not Available Not Available Not Available bumetanid e 1 mg tablet TAKE 1 TABLET BY MOUTH EVERY DAY active Not Available Not Available No t Available hydrocodo ne 5 mg-acetam inophen 500 mg tablet active Not Available Not Available Not Available magnesium 250 mg tablet Take 2 tablets every day by oral route. 09/17 completed dose changed by speciali st Not Available Not Available Not Available pravastat in 20 mg tablet TAKE 1 TABLET AT BEDTIME 08/24 completed Not Available Not Available Not Available mupirocin 2 % topical ointment APPLY TOPICALL Y TWICE A DAY active Not Available Not Available No t Available digoxin 125 mcg (0.125 mg) tablet TAKE 1 TABLET BY MOUTH EVERY DAY 09/12 completed Not Available Not Available Not Available zolpidem 5 mg tablet TAKE 1 TABLET BY MOUTH AT BEDTIME NEEDED FOR SLEEP 08/02 completed Not Available Not Available Not Available metoprolo l succinate ER 25 mg tablet,ex tended release 24 hr 08/07 completed Not Available Not Available Not Available Prometheg an 25 mg rectal supposito ry active Not Available Not Available Not Available nystatin 100,000 unit/gram topical powder APPLY TOPICALL Y TWICE A DAY NEEDED active Not Available Not Available No t Available dexametha sone sodium phosphate 4 mg/mL injection solution Take 1 mL every day by injectio n route. 07/30 completed Not Available Not Available Not Available triamcino lone acetonide 0.1 % lotion active Not Available Not Available Not Available levofloxa nicolle 500 mg tablet active Not Available Not Available No t Available gentamici n 40 mg/mL injection solution 2012 active Not Available Not Available Not Avai lable diltiazem 30 mg tablet TAKE 1 TABLET BY MOUTH TWICE A DAY 05/28 completed Not Available Not Available Not Available docusate sodium 250 mg capsule TAKE ONE CAPSULE BY MOUTH TWICE A DAY active Not Available Not Available No t Available ketoconaz ole 2 % topical cream Apply by topical route to affected skin bid active Not Available Not Available No t Available ondansetr on 4 mg disintegr ating tablet 09/23 completed Not Available Not Available Not Available losartan 100 mg tablet TAKE 1 TABLET EVERY DAY 08/07 completed Not Available Not Available Not Available clotrimaz ole 1 % topical cream active Not Available Not Available Not Available doxycycli ne hyclate 100 mg tablet 09/23 completed Not Available Not Available Not Available naproxen 500 mg tablet active Not Available Not Available Not Available Ventolin HFA 90 mcg/actua tion aerosol inhaler Inhale 2 puffs every 4 hours by inhalati on route as needed. active Not Available Not Available No t Available tobramyci n 0.3 %-dexamet hasone 0.1 % eye drops,[facility] INSTILL 1 DROP INTO THE RIGHT EYE 4 TIMES A DAY AFTER WARM COMPRESS ES 12/04 completed Not Available Not Available Not Available hydroxyzi ne pamoate 25 mg capsule 04/09 completed Not Available Not Available Not Available Estrace 0.01% (0.1 mg/gram) vaginal cream APPLY PEA-SIZE D AMOUNT TO INCISION TWICE A DAY active Not Available Not Available No t Available escitalop gisele 10 mg tablet TAKE 1 TABLET BY MOUTH EVERY DAY 01/13 completed Not Available Not Available Not Available Vitamin D3 25 mcg (1,000 unit) capsule Take 1 capsule every day by oral route. active Not Available Not Available No t Available Klor-Con M20 mEq tablet,ex tended release TAKE 1 TABLET BY MOUTH DAILY 08/07 completed Not Available Not Available Not Available memantine 10 mg tablet TAKE 1 TABLET BY MOUTH EVERY DAY active Not Available Not Available No t Available memantine 5 mg tablet TAKE 1 TABLET BY MOUTH EVERY DAY 09/12 completed Not Available Not Available Not Available escitalop gisele 5 mg tablet TAKE 1 TABLET BY MOUTH EVERY DAY 01/13 completed Not Available Not Available Not Available metoprolo l tartrate 25 mg tablet TAKE 1 TABLET BY MOUTH TWICE A DAY 07/15 completed Not Available Not Available Not Available Adacel (Tdap Adolesn/A dult)(PF) 2Lf-(2.5- 5-3-5mcg) -5 Lf/0.5 mL IM susp inject 0.5 millilit er intramus cularly active Not Available Not Available No t Available losartan 100 mg-hydroc hlorothia zide 12.5 mg tablet Take 1 tablet every day by oral route for 90 days. active Not Available Not Available No t Available magnesium 800 mg daily 08/02 completed Not Available Not Available Not Available Vitamin C 2 daily 08/07 completed Not Available Not Available Not Available vitamin E 10/27 completed Not Available Not Available Not Available B Complex 1 daily 08/07 completed Not Available Not Available Not Available Rebeccaien prior to sleep study on 03/17 completed Not Available Not Available Not Available [place] Oil-1000 active Not Available Not Available Not Available PreserVis ion AREDS 1 po bid active Not Available Not Available N ot Available red yeast rice 600 mg capsule 2 qd active Not Available Not Available Not Available Zostavax (PF) 19,400 unit/0.65 mL subcutane ous suspensio n 01/22 completed Not Available Not Available Not Available olopatadi ne 0.2 % eye drops APPLY 1 DROP INTO BOTH EYES ONCE DAILY AT BEDTIME PRN 09/12 completed Not Available Not Available Not Available peg 3350-elec trolytes 236 gram-22.7 4 gram-6.74 gram-5.86 gram solution active Not Available Not Available Not Available rivastigm ine 9.5 mg/24 hour transderm al patch 08/07 completed Not Available Not Available Not Available rivastigm ine 4.6 mg/24 hour transderm al patch 08/07 completed Not Available Not Available Not Available omeprazol e 20 mg tablet,de layed release Take 1 tablet every day by oral route. 08/07 completed Not Available Not Available Not Available Voltaren 1 % topical gel APPLY 2 GRAMS TO AFFECTED AREA 4 TIMES A DAY 06/09 completed Not Available Not Available Not Available Rapaflo 8 mg capsule active Not Available Not Available Not Available Rapaflo 4 mg capsule active Not Available Not Available Not Available Zymaxid 0.5 % eye drops active Not Available Not Available Not Available melatonin 10 mg tablet Take 1 tablet every day by oral route in the evening. 12/04 completed Not Available Not Available Not Available Eliquis 5 mg tablet 1/2 po bid 01/17 completed duplicat e Not Available Not Available Not Available Eliquis 2.5 mg tablet TAKE 1 TABLET BY MOUTH TWICE DAILY active Not Available Not Available No t Available Vitals Date Recorded Body height Body mass index (BMI) Body weight Heart rate Oxygen saturation Oxygen saturation in Arterial blood by Pulse oximetry Body temperature Systolic And Diastolic Provider Name and Address Organization Details Last Updated DateTime 3 160.02 cm 24.5 kg/m2 72198.1 5 g 110 /min 96 % 96 % 98.1 [degF] 136/80 mm[Hg] [facility] 3 14:37:19 Date Recorded Body height Body mass index (BMI) Body weight Heart rate Oxygen saturation Oxygen saturation in Arterial blood by Pulse oximetry Body temperature Systolic And Diastolic Provider Name and Address Organization Details Last Updated DateTime 5 160.02 cm 22.4 kg/m2 37253.0 4 g 51 /min 96 % 96 % 98.2 [degF] 119/63 mm[Hg] [facility] 5 14:30:15 Date Recorded Body height Body weight Heart rate Oxygen saturation Oxygen saturation in Arterial blood by Pulse oximetry Body temperature Systolic And Diastolic Provider Name and Address Organization Details Last Updated DateTime 3 160.02 cm 56086.7 8 g 75 /min 96 % 96 % 98.2 [degF] 133/73 mm[Hg] [facility] 3 13:38:11 Date Recorded Body height Body mass index (BMI) Body weight Heart rate Oxygen saturation Oxygen saturation in Arterial blood by Pulse oximetry Body temperature Systolic And Diastolic Provider Name and Address Organization Details Last Updated DateTime 4 160.02 cm 24.1 kg/m2 30445.2 6 g 53 /min 97 % 97 % 97.3 [degF] 130/81 mm[Hg] [facility] 4 13:46:16 Date Recorded Body height Body mass index (BMI) Body weight Heart rate Oxygen saturation Oxygen saturation in Arterial blood by Pulse oximetry Body temperature Systolic And Diastolic Provider Name and Address Organization Details Last Updated DateTime 2 160.02 cm 24.5 kg/m2 88893.8 5 g 83 /min 95 % 95 % 97.7 [degF] 155/92 mm[Hg] [facility] 2 15:55:10 Social History Question Answer Notes LastModified by Organizat ion Details LastModified Time Tobacco Smoking Status Never Smoker Not Available [facility] 01/24/2020 03:11:20 Do You Have An Advance Directive? Yes [id number] Information not available 01/24/2020 Animal Exposure? No Informat ion not available 03/03/2011 Auto Related Injury? No Information not available 03/03/2011 Is Blood Transfusion Acceptable In An Emergency? No Information not available 12/06/2022 What Is Your Level Of Caffeine Consumption? Occasional [id number] Information not available 01/24/2020 How Much Tobacco Do You Chew? None [id number] Information not available 01/24/2020 What Is Your Code Status? DNR Information not available 12/06/2022 Diabetes No Information no t available 03/03/2011 What Type Of Diet Are You Following? SPECIFIC Watches Sodium And Fat Intake [id number] Information not available 01/24/2020 Which Illicit Or Recreational Drugs Have You Used? None [id number] Information not available 01/24/2020 Education 2 Year College Informatio n not available 03/03/2011 What Is The Highest Grade Or Level Of School You Have Completed Or The Highest Degree You Have Received? [id number] Information not available 09/12/2021 Family History Of Heart Disease? No Information not available 03/03/2011 Which Of Your Hands Is Dominant? Right [id number] Information not available 01/24/2020 High Blood Pressure Yes Information not available 03/03/2011 High Cholesterol Yes Informat ion not available 03/03/2011 Live Alone Or With Others? With Others Information not available 03/03/2011 Marital Status Informatio n not available 03/03/2011 What Was The Date Of Your Most Recent Tobacco Screening? 01/14/2024 Information not available 01/14/2024 How Many Children Do You Have? 3 [id number] Information not available 01/24/2020 What Is Your Relationship Status? Information not available 09/12/2021 Seat Belts Used Routinely Yes Information not available 05/05/2013 Smoke Alarm In Home Yes Information not available 05/05/2013 Are You Passively Exposed To Smoke? No Information not available 03/03/2011 General Stress Level Medium Information not available 03/03/2011 Do You Use Sunscreen Routinely? No [id number] Information not available 01/24/2020 Work Related Injury? No Information not available 05/05/2013 Sex: Unknown Functional Status Question Answer Note LastModified by Organizat ion Details LastModified Time What is your level of alcohol consumption? None [id number] Information not available 01/24/2020 Are you currently employed? No [id number] Information not available 01/24/2020 Are you able to care for yourself? 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 Moderate walking [id number] Information not available 01/24/2020 Mental Status None recorded. Family History Relationship Description Onset Age of this Age Resolved Age Notes LastModified by Organization Details LastModified Time Mother Malignant neoplastic disease 69 brain (previ ously record ed as Cancer ) [email or web address] Not available 03/08/2015 12:16:02 Father Malignant neoplastic disease 78 colon (previ ously record ed as Cancer ) Not available 03/08/2015 12:16:02 Notes:7 siblings and 4 in childhood; 3 living and are ok(2 sisters and 1 brother and older sister had CABG) Medical History Condition Response Coronary Artery Disease N Gout N Kidney Stones N Blood Diseases N Hyperthyroidism N Hypothyroidism N Depression N COPD N Developmental or Behavioral Disorders N Eczema, Hives or other skin conditions N Anxiety Disorder N Muscle, Joint, or Bone Problems N Vision or Eye Problems N Arthritis Y Serious Illness or Injuries N Congenital Anomalies N Cancer N Stroke N Bladder or Kidney Problems N Hospital Admission other than N High Cholesterol Y Liver Disease N Fibromyalgia N Kidney Disease N Heart Problems N Ear or Hearing Problems N ADD or ADHD N Thyroid Problems N Skin Problems N Anemia N Constipation N Diabetes N Bedwetting N Seizures/Epilepsy N Tuberculosis N Diverticulitis N Asthma N Allergies N GERD/Reflux N Heart Disease N Pulmonary Embolism N Hypertension Y Osteoporosis N Chicken Pox N Gynecological HistoryNo gynecological history recorded. Obstetrics History GPAL:G 0 P 0 0 0 0 Immunizations Vaccine Type Date Status Note Provider Nam e and Address Organization Details Recorded Time DTaP, 5 pertussis antigens 4 completed Kathy Torres MD [address] [address], [place], [place], [address] [place] [address], [facility] 11/11/2013 11:20:04 Pneumococcal conjugate PCV 13 5 completed [facility] 10/10/2014 11:25:29 Influenza, high-dose, quadrivalent, PF 3 completed Kathy Torres MD [address] [address], [place], [place], [address] [place] [address] [facility] 12/06/2022 23:05:47 zoster live 5 completed Not Available [facility] 04/30/2019 02:12:32 Influenza, high-dose, trivalent, PF 4 completed Kathy Torres MD [address] [address], [place], [place], [address] [place] [address] [facility] 01/14/2024 23:12:52 COVID-19, mRNA, LNP-S, PF, 100 mcg/0.5mL dose or 50 mcg/0.25mL dose 1 completed [facility] 08/09/2020 15:10:31 COVID-19, mRNA, LNP-S, PF, 100 mcg/0.5mL dose or 50 mcg/0.25mL dose 1 completed [facility] 08/09/2020 15:10:36 COVID-19, mRNA, LNP-S, PF, 30 mcg/0.3 mL dose 1 completed [facility] 09/12/2021 14:44:05 Influenza, high-dose, trivalent, PF 1 completed [facility] 09/12/2021 14:44:28 Influenza, high-dose, quadrivalent, PF 2 completed Kathy Torres MD [address], [address], [facility] 03/03/2022 16:18:19 pneumococcal polysaccharide PPV23 2 completed Not Available [facility] 04/16/2019 02:12:10 Past Encounters Encounter ID Performer Location Encounter Start Date Encounter Closed Date Diagnosis/Indication Diagnosis SNOMED-CT Code Diagnosis ICD10 Code Diagnosis Note [id number] Kathy Torres MD [address] [id number] 03/03/2011 10:48:20 03/03/2011 15:59:06 [id number] Kathy Torres MD [address] [id number] 05/26/2011 14:03:07 05/26/2011 17:06:42 [id number] Kathy Torres MD [address] [id number] 05/29/2011 13:47:43 05/29/2011 15:29:44 [id number] Kathy Torres MD [address] [id number] 06/12/2011 10:10:48 06/12/2011 12:00:36 [id number] Kathy Torres MD [address] [id number] 06/17/2011 10:47:24 06/17/2011 15:05:14 [id number] Kathy Torres MD [address] [id number] 07/04/2011 10:44:50 07/04/2011 16:04:34 [id number] Kathy Torres MD [address] [id number] 08/07/2011 10:55:46 08/07/2011 16:36:44 [id number] Kathy Torres MD [address] [id number] 08/14/2011 11:18:43 08/14/2011 14:39:06 [id number] Kathy Torres MD [address] [id number] 02/02/2012 09:41:57 02/02/2012 16:38:08 [id number] Kathy Torres MD [address] [id number] 02/27/2012 15:20:26 03/03/2012 09:15:56 [id number] Kathy Torres MD [address] [id number] 03/19/2012 14:53:25 03/19/2012 17:04:47 [id number] Kathy Torres MD [address] [address] 04/05/2012 11:24:06 04/05/2012 17:22:42 [id number] Kathy Torres MD [address] [address] 06/03/2012 08:33:04 06/03/2012 17:19:49 [id number] Kathy Torres MD [address] [address] 7 09/20/2012 09:43:12 09/20/2012 16:46:38 [id number] Kathy Torres MD [address] [address] 7 11/01/2012 10:11:02 11/01/2012 12:14:54 [id number] Kathy Torres MD [address] [address] 7 11/19/2012 14:49:27 11/19/2012 16:31:50 [id number] Kathy Torres MD [facility] [address] [address] 7 03/03/2013 09:43:41 03/03/2013 11:59:46 Hypo-osmolality and or hyponatremia 762965804 Disorder of foot 696297539 Benign ess ential hypertension 0741975 Hyperlipidemia 44507153 [id number] Kathy Torres MD [facility] [place] [address] 7 05/05/2013 14:14:35 05/05/2013 15:39:23 Benign essential hypertension 9223645 Edema 138473955 Hyperlipidemia 52622105 Gastroesop hageal reflux disease 966998500 [id number] Kathy Torres MD [facility] [place] [address] 7 08/25/2013 14:54:52 08/25/2013 16:51:17 Osteoarthritis of wrist 690462757 Strain of muscle and/or tendon of wrist 496398095 Strain of muscle and/or tendon of hand 966241495 Superficia l injury of hand 284165435 Benign ess ential hypertension 7643012 [id number] Kathy Torres MD [facility] [place] [address] 7 11/11/2013 09:54:24 11/11/2013 17:22:05 Adult health examination 058164556 Hyperlipidemia 24583464 Gastroesop hageal reflux disease 010537882 Benign ess ential hypertension 1022392 Pain of luis int of wrist 023430282 [id number] Kathy Torres MD [facility] [place] [id number] 7 02/03/2014 14:17:59 02/03/2014 16:48:15 Infection of skin and/or subcutaneous tissue 25622437 Benign ess ential hypertension 9919508 Disorder o f urinary tract 00602472 Gastroesop hageal reflux disease 493129747 Hyperlipidemia 37939224 [id number] Kathy Torres MD [facility] [place] [address] 7 10/10/2014 09:53:57 10/10/2014 11:47:29 Benign essential hypertension 0241703 Edema of foot 859516527 Staphyloco ccal infectious disease 52653954 [id number] Kathy Torres MD [facility] [address] [place] [address] 7 01/22/2015 15:07:02 01/24/2015 08:58:53 Adult health examination 924211327 Z00.01 Hand eczema 224210878 L3 0.9 Benign ess ential hypertension 6508789 I10 Gastroesop hageal reflux disease 622513830 K21.9 Edema of foot 918866711 R60.0 Urinary tr act infectious disease 54670571 N39.0 Hyperlipidemia 47364314 E78.5 [id number] Kathy Torres MD [facility] [address] [place] [address] 7 01/26/2015 15:08:59 01/26/2015 16:58:04 Colitis 92890373 K52.9 [id number] Kathy Torres MD [facility] [address] [place] [address] 7 03/08/2015 11:14:21 03/09/2015 10:58:54 Edema of foot 319130793 R60.0 Benign ess ential hypertension 2923889 I10 Screening for cancer 158 62750 Z12.11 Generalize d osteoarthritis 997087437 M15.9 [id number] Kathy Torres MD [facility] [place] [id number] 7 05/31/2015 10:13:04 06/01/2015 08:01:24 Osteoarthritis of joint of hand 60097546 M19.049 Osteoarthritis 896069272 M19.90 Benign ess ential hypertension 1212772 I10 Hyperlipidemia 65565301 E78.5 [id number] Kathy Torres MD [facility] [place] [address] 7 12/10/2015 15:12:55 12/11/2015 08:57:13 Candidiasis of skin 47203050 B37.2 Disorder o f skin and/or subcutaneous tissue 59553918 L98.9 Sciatica 61921568 M54.31 [id number] Kathy Torres MD [facility] [address] [address] 02/11/2016 09:45:22 02/13/2016 08:36:16 Adult health examination 398007294 Z00.01 Body mass index 25-29 - overweight 620429397 Z68.25 At low risk for fall 439 580546 Z91.81 Screening for osteoporosis 810903120 Z13.820 Cellulitis of finger 275 33417 L03.011 Paronychia of finger 444 913690 L03.019 Essential hypertension 37728866 I10 Hyperlipidemia 30607771 E78.5 [id number] Kathy Torres MD [facility] [address] [place], [place] [address] 7 05/15/2016 10:46:50 05/15/2016 16:16:47 Hand eczema 761028412 L30.9 Hyperlipidemia 06495810 E78.5 Body mass index 25-29 - overweight 219946272 Z68.25 [id number] Kathy Torres MD [facility] [place] [address] 7 06/09/2016 09:46:10 06/09/2016 10:53:10 Tachycardia 0523737 R00.0 Atypical chest pain 1025 02083 R07.89 Essential hypertension 05068904 I10 [id number] Kathy Torres MD [facility] [place] [address] 7 10/27/2016 08:45:51 10/28/2016 08:38:40 Essential hypertension 23338786 I10 Hyperlipidemia 25687435 E78.5 Paroxysmal atrial fibrillation 933489548 I48.0 Anticoagulant therapy 18 3932552 Z79.01 Obstructiv e sleep apnea syndrome 63446905 G47.33 She started this over a month ago per Dr Bonilla. She also reportedly had a carotid study as well. Body mass index 25-29 - overweight 132925955 Z68.26 [id number] Kathy Torres MD [facility] [address] [address] 03/05/2017 11:15:01 03/06/2017 08:16:08 Adult health examination 400336932 Z00.01 Contusion of face 419773 004 S00.83XA Essential hypertension 45009228 I10 Hyperlipidemia 72112824 E78.5 Depression screening 171 325392 Z13.89 Paroxysmal atrial fibrillation 929108804 I48.0 Anticoagulant therapy 18 5358544 Z79.01 Body mass index 25-29 - overweight 939769817 Z68.26 At low risk for fall 439 353309 Z91.81 Hand eczema 820737061 L3 0.9 Cardiac pa cemaker in situ 084185027 Z95.0 History of migraine 1614 49662 Z86.69 [id number] Kathy Torres MD [facility] [address] [address] 07/30/2017 09:24:44 07/31/2017 08:21:36 Dyspnea on exertion 49324256 R06.09 Atrial fibrillation 4943 6004 I48.91 Acute bronchitis 1132435 2 J20.9 Cardiac pa cemaker in situ 222018955 Z95.0 [id number] Kathy Torres MD [place] [address] 7 08/10/2017 15:59:16 08/11/2017 08:26:18 Spontaneous ecchymosis 315634393 R23.3 Anticoagulant therapy 18 3330459 Z79.01 Atrial fibrillation 4943 6004 I48.91 [id number] Kathy Torres MD [place] [address] 7 09/17/2017 10:55:50 09/18/2017 08:52:16 Congestive heart failure 88811019 I50.9 Atrial fibrillation 4943 6004 I48.91 Edema of l ower extremity 614247624 R60.0 Cardiac pa cemaker in situ 716280502 Z95.0 Essential hypertension 50204714 I10 [id number] Kathy Torres MD [place] [address] 7 11/02/2017 15:50:57 11/03/2017 08:32:39 Boil of face (excluding eye) 800696218 L02.02 Burn 929524417 T30.0 Insomnia 289617429 G47.0 0 [id number] Kathy Torres MD [place] [address] 7 02/09/2018 13:28:16 02/11/2018 08:58:52 Fall W19.XXXA Contusion of face 959549 004 S00.83XA Contusion of right hand 5659505434 7855360 S60.221A [id number] Kathy Torres MD [facility] [address] [place] [address] 03/09/2018 10:16:54 03/11/2018 08:37:25 Adult health examination 618837188 Z00.01 Hypothyroidism 55423678 E03.9 Contusion of face 081348 004 S00.83XA Essential hypertension 41935395 I10 Hyperlipidemia 74265457 E78.5 Depression screening 171 395486 Z13.89 Paroxysmal atrial fibrillation 582802800 I48.0 Anticoagulant therapy 18 0025601 Z79.01 At low risk for fall 439 004507 Z91.81 Hand eczema 585783121 L3 0.9 Cardiac pa cemaker in situ 638029290 Z95.0 History of migraine 1614 31896 Z86.69 Body mass index 20-24 - normal 411629051 Z68.24 [id number] Kathy Torres MD [facility] [place] [address] 7 04/02/2018 09:31:53 04/02/2018 11:09:04 Abscess of vulva 37922340 N76.4 Hypothyroidism 21939748 E03.9 [id number] Kathy Torres MD [place] [address] 7 08/02/2018 14:49:17 08/04/2018 08:31:58 Gastro-esophageal reflux disease with esophagitis 979514625 K21.0 Chronic at rial fibrillation 228394289 I48.2 Adverse re action to drug 54277949 T50.905S Anticoagulant therapy 18 4188809 Z79.01 Benign ess ential hypertension 6099378 I10 Liver func tion tests outside reference range 280229494 R94.5 [id number] Kathy Torres MD [address] [address] 09/09/2018 13:26:24 09/10/2018 08:10:11 Essential hypertension 19001573 I10 Unintentio nal weight loss 192846508 R63.4 Recurrent falls 43850853 2 R29.6 Body mass index 20-24 - normal 875184949 Z68.20 [id number] Kathy Torres MD [facility] [address] [address] 08/08/2019 13:37:25 08/09/2019 08:10:02 Adult health examination 067930388 Z00.01 Hypothyroidism 93404879 E03.9 Essential hypertension 71646933 I10 Hyperlipidemia 45393362 E78.5 Depression screening 171 485331 Z13.89 Paroxysmal atrial fibrillation 707490243 I48.0 Anticoagulant therapy 18 9515197 Z79.01 At low risk for fall 439 170104 Z91.81 Cardiac pa cemaker in situ 390014343 Z95.0 History of migraine 1614 79487 Z86.69 Trigger fi nger of right hand 0502072602 2840376 M65.30 right ring finger catching and bothering her Body mass index less than 20 513522765 Z68.1 Unintentio nal weight loss 668536418 R63.4 [id number] Kathy Torres MD [facility] [address] [place] [address] 7 08/09/2020 14:36:13 08/10/2020 08:04:28 Adult health examination 200921869 Z00.01 Essential hypertension 13077746 I10 Hyperlipidemia 42580446 E78.5 Depression screening 171 204594 Z13.89 Paroxysmal atrial fibrillation 201401038 I48.0 Anticoagulant therapy 18 2827506 Z79.01 At low risk for fall 439 101810 Z91.81 Cardiac pa cemaker in situ 780938019 Z95.0 History of migraine 1614 36258 Z86.69 Mild memor y disturbance 378173607 R41.3 [id number] Kathy Torres MD [facility] [address] [place] [address] 7 09/12/2021 13:31:47 09/13/2021 08:18:22 Adult health examination 484993025 Z00.01 Essential hypertension 92809687 I10 Hyperlipidemia 27935305 E78.5 Depression screening 171 382683 Z13.89 Paroxysmal atrial fibrillation 512113756 I48.0 Anticoagulant therapy 18 4851136 Z79.01 At low risk for fall 439 375694 Z91.81 Cardiac pa cemaker in situ 686755573 Z95.0 History of migraine 1614 95351 Z86.69 Mild memor y disturbance 929122576 R41.3 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 [id number] Kathy Torres MD [facility] [address] [place] [address] 7 03/03/2022 15:20:27 03/04/2022 10:02:59 Chronic blepharitis 70872968 H01.009 Hypothyroidism 20986591 E03.9 Essential hypertension 65879274 I10 Fatigue 61969875 R53.83 [id number] Kathy Torres MD [facility] [address] [place] [address] 7 05/05/2022 14:05:14 05/06/2022 09:15:41 Diarrhea 99991062 R19.7 Lower abdominal pain 545 00605 R10.30 [id number] Kathy Torres MD [facility] [place] [address] 7 12/04/2022 13:28:55 12/08/2022 08:29:54 Administration of influenza vaccine 94394130 Z23 Adult heal th examination 172998215 Z00.01 Essential hypertension 55403478 I10 Hyperlipidemia 93059995 E78.5 Depression screening 171 310236 Z13.89 Paroxysmal atrial fibrillation 872859040 I48.0 Anticoagulant therapy 18 7833327 Z79.01 At low risk for fall 439 217865 Z91.81 Cardiac pa cemaker in situ 925319894 Z95.0 History of migraine 1614 79194 Z86.69 Mild memor y disturbance 297737959 R41.3 Degenerati ve disorder of macula 492025998 H35.30 HMG COA re ductase inhibitor adverse reaction 819324715 T46.6X5S Advance di rective discussed with patient 162135730 Z71.89 [id number] Kathy Torres MD [facility] [address] [address] 01/14/2024 13:30:29 01/15/2024 08:50:14 Administration of influenza vaccine 06729297 Z23 Adult heal th examination 640713258 Z00.01 Essential hypertension 03095555 I10 Hyperlipidemia 44989244 E78.5 Depression screening 171 006407 Z13.89 Paroxysmal atrial fibrillation 192222465 I48.0 Anticoagulant therapy 18 5018488 Z79.01 At low risk for fall 439 305117 Z91.81 Cardiac pa victor maker in situ 138988791 Z95.0 History of migraine 1614 95368 Z86.69 Degenerati ve disorder of macula 389177640 H35.30 HMG COA re ductase inhibitor adverse reaction 764086421 T46.6X5S Advance di rective discussed with patient 446950980 Z71.89 Candidiasis of skin 4988 3006 B37.2 Memory impairment 776620 006 R41.3 [id number] Kathy Torres MD [facility] [address] [facility] [address] [place] [address] 07/28/2024 14:29:02 07/28/2024 15:10:51 Infection of skin 179176300 L08.9 Candidiasis of skin 4988 3006 B37.2 Health Concerns Section Related Observation LastModified by Organization Detai ls LastModified Time None Recorded Concern Status LastModified by Organization Details LastModified Time None Recorded Advance Directives Directive Y: Payers Insurance Date Sequence Insurance Name Policy Number Policy King Covered Member ID King Member ID Guarantor Name 01/14/2024 1 [place] Ketty S Brashier [id number] Ketty S Brashier 01/14/2024 2 [facility] [place]PP[place] [employer] Ketty S Brashier [id number] Ketty S Brashier 07/28/2024 1 [employer] (MEDICARE REPLACEMENT/AD VANTAGE - PPO) [id number] Ketty S Brashier [id number] Ketty S Brashier Notes Date Note Type Note Provider Name and Address Organization Details Recorded Time 03/03/2022 text/html Recurrent irritation around both eyes and has had this issue before treated with topical antibiotics. Kathy Torres MD [address] [facility], [address], [place], [address], [facility] 03/03/2022 22:44:35 05/05/2022 text/html states she hurts in the lower stomach for a few weeks. 2 daughters are with her. They state she has watery discharge from the rectum and the vagina area. This has started recently. No fevers at present and doesn't think she can give a specimen today.She does drink a lot of milk and we recommend she cut back on that today. Kathy Torres MD [address] [place] [address], [place], [address], [facility] 05/05/2022 21:24:26 12/04/2022 text/html daughter advises eating has been an issue and they are just letting her eat what she wants to eat and she is eating a bag of KIT FARIDA and a bag of cookies a week! One of her daughter's lives with her and cooks but she doesn't really eat the healthier food. She is getting worse dementia. She sees her neurologist Dr. Delatorre tomorrow. Kathy Torres MD [address], [address], [facility] 12/06/2022 23:07:43 01/14/2024 text/html she loves Kit Ka ts and cookies. Kathy Torres MD [address] [place] [address], [place], [address], [facility] 01/14/2024 23:53:56 07/28/2024 text/html Family has notic ed a tender swelling on the left side of the face in front of the ear. 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 She continues to have issues with candidiasis under the breasts and in the navel area with the staph. Kathy Torres MD [address], [address], [facility] 07/28/2024 14:58:37 OBGyn Episode No OBEpisode recorded.
--- NOTE | 2024-10-11 12:57 | ED_ITS ---
Discharge Plan Disposition Patient Disposition: Home, Self-Care Condition: Good Prescriptions Prescriptions: No Action PreserVision AREDS 4,296 mcg-226 mg-90 mg capsule 1 cap PO BID memantine 10 mg tablet 10 mg PO DAILY metoprolol succinate 50 mg tablet extended release 24 hr See Rx Instructions .ROUTE .COMPLEX Qty: 90 3RF Dose Instruction: TAKE ONE TABLET BY MOUTH DAILY Rx Instructions: TAKE ONE TABLET BY MOUTH DAILY bumetanide 1 mg tablet 1 mg PO DAILY Qty: 90 3RF Eliquis 2.5 mg tablet 2.5 mg PO BID Qty: 180 1RF mupirocin 2 % ointment 1 applic topical BID Qty: 22 0RF Referrals Follow up/Referrals: Mike Mejia DO [Staff Physician, Orthopedics] - See instructions Kathy Torres [Primary Care Provider, Medical] - See instructions Activity Restrictions/Add. Instructions Additional Instructions/Restrictions: You will need to follow-up in the orthopedic clinic in the next 2 weeks. Please call them in the next 48 hours to schedule an appointment. You can weight-bear and walk with a walker at home. You will continue to be sore over the next couple weeks. Take Tylenol as needed for pain control. Return to the emergency department for acute or worsening uncontrolled pain or if you have any other acute concerns. Clinical Impressions Clinical Impression: Closed fracture of inferior pubic ramus Print Language Print Language: Palestinian Discharge ED Provider: Ashleigh Garland Adult HPI General Chief complaint: PAIN Stated complaint: AO 10/03/24 pelvis pain Time Seen by Provider: 10/11/24 12:57 Mode of Arrival: Wheelchair Source of Information: Relative Description of Symptoms (Recalled from ER Triage Doc. by RN): Patient accompanied today by daughters who state about 10-11 days ago they noticed a table broken and since then patient has been walking worse and complains of pain in right groin/hip area. No noticable signs of injury or daughters did not see or hear patient fall. Patient has not been seen since this happened. Patient has dementia and is not able to relate any information. History of Present Illness HPI narrative: Patient is an 88-year-old female with a past medical history of A-fib on Eliquis who presented to the emergency department after a fall 11 days ago. Daughters are at bedside and state that they did not know that their mom had fallen. They stated that they noticed a broken table at the house and over the last few days the patient has had more difficulties ambulating and is now using a walker. Patient reports pain in her right hip but denies any other associated pain. Patient denies any chest pain back pain numbness or weakness. Patient took her last dose of Eliquis last night. Patient denies any headache or vision changes. Related Data Home Medications ?Medication ?Instructions ?Recorded ?Confirmed vitamins A,C,O-fufg-cdwefy 4,296 1 cap PO BID 01/26/23 07/18/24 mcg-226 mg-90 mg capsule (PreserVision AREDS) memantine 10 mg tablet 10 mg PO DAILY 01/21/2406/29 Previous Rx's ?Medication ?Instructions ?Recorded mupirocin 2 % topical ointment 1 applic topical BID #2 2 grams 08/05/23 metoprolol succinate 50 mg See Rx Instructions .Route 02/01/24 tablet,extended release 24 hr .COMPLEX #90 tabs bumetanide 1 mg tablet 1 mg PO DAILY #90 tabs 04/08 apixaban 2.5 mg tablet (Eliquis) 2.5 mg PO BID #180 ta bs 09/01/24 Allergies Allergy/AdvReac Type Severity Reaction Status Date / Time No Known Allergies Allergy Verified 07/18/24 13:45 [facility] Disclaimer: The information contained in this section may have been updated after the patient was seen, as this information can be updated by other users. Medical History Pacemaker Mitral regurgitation Aortic regurgitation HLD (hyperlipidemia) HTN (hypertension) Chronic a-fib HFrEF (heart failure with reduced ejection fraction) Systolic heart failure Surgical History History of hysterectomy Social History Smoking Status: Never smoker alcohol intake: never current occupational status: retired Travel in the last 8 weeks?: None Have you lived/traveled outside US in past 30 days?: No Contact w/someone who lives/traveled outside US past 30 days?: No Exposure to someone with infectious disease in past 14 days?: No Do you have a fever (greater than 100.4 F or 38 C)?: No Have you tested positive for COVID-19?: No Exposed to someone with COVID-19 in past 14 days?: No Do you have a sore throat?: No Do you have a cough?: No Do you have any weakness?: No Do you have any diarrhea?: No Are you experiencing any unusual bleeding?: No Do you have any muscle aches/pain?: No Do you have any abdominal pain?: No Are you experiencing loss of taste or smell?: No Other Medical History Have you received the Pneumonia Vaccine: Yes ROS Obtained: Yes All systems reviewed & no additional complaints except as documented and Yes Systems reviewed as appropriate & no additional complaints except as documented Physical Exam General General appearance: alert and in no apparent distress Head Head exam: atraumatic, normocephalic and normal inspection Eye Eye exam: Present normal appearance, PERRL and EOMI; Absent scleral icterus ENT ENT exam: Present normal exam and normal external ear exam Neck Neck exam: Present normal inspection and full ROM Chest Chest inspection: Present normal inspection and symmetric chest wall rise Respiratory Respiratory exam: Present normal lung sounds bilaterally; Absent respiratory distress or wheezes Cardiovascular Cardiovascular exam: Present regular rate, normal rhythm and normal heart sounds Abdominal Exam Abdominal exam: Present soft and distention; Absent tenderness, guarding or rebound Extremities Exam Extremities exam: Present normal inspection, full ROM and other (Right hip tenderness, decreased range of motion secondary to pain. Full range of motion of the left lower extremity, full range of motion of the bilateral upper extremities.) Back Exam Back exam: Present normal inspection and full ROM Neurological Exam Neurological exam: Present alert and oriented X3 Psychiatric Psychiatric exam: Present normal affect and normal mood Skin Skin exam: Present warm and dry Medical Decision Making Medical Records Screening: Per USPSTF and CDC recommendations, given the prevalence of disease in our region, it is our hospital?s policy to screen for HIV and viral Hepatitis for all patients aged 18 and over and those with ongoing risk factors. Alvarez Inquiry Pt receiving controlled substance: No Vital Signs: 10/11/24 12:49 10/11/24 13:00 10/11/24 13:30 Temperature 97.7 F Temperature Source Oral Pulse Rate 67 76 Pulse Rate [Right Brachial] 76 Respiratory Rate 17 Blood Pressure 133/75 151/76 H Blood Pressure [Right Arm] 149/83 H Blood Pressure Mean 87 Blood Pressure Mean [Right Arm] 105 Blood Pressure Source Blood Pressure Source [Right Arm] Automatic Cuff Blood Pressure Position Blood Pressure Position [Right Arm] Sitting 02 Sat by Pulse Oximetry 95 95 96 Oxygen Delivery Method Room Air 10/11/24 14:00 10/11/24 14:30 10/11/24 15:00 Temperature Temperature Source Pulse Rate 78 76 79 Pulse Rate [Right Brachial] Respiratory Rate Blood Pressure 153/83 H 149/88 H 151/82 H Blood Pressure [Right Arm] Blood Pressure Mean 95 108 Blood Pressure Mean [Right Arm] Blood Pressure Source Blood Pressure Source [Right Arm] Blood Pressure Position Blood Pressure Position [Right Arm] 02 Sat by Pulse Oximetry 97 96 98 Oxygen Delivery Method 10/11/24 15:30 10/11/24 16:01 10/11/24 16:31 Temperature Temperature Source Pulse Rate 55 L 78 76 Pulse Rate [Right Brachial] Respiratory Rate Blood Pressure 153/87 H 155/86 H 155/97 H Blood Pressure [Right Arm] Blood Pressure Mean Blood Pressure Mean [Right Arm] Blood Pressure Source Blood Pressure Source [Right Arm] Blood Pressure Position Blood Pressure Position [Right Arm] 02 Sat by Pulse Oximetry 82 L 96 96 Oxygen Delivery Method 10/11/24 17:13 Temperature 97.8 F Temperature Source Oral Pulse Rate 85 Pulse Rate [Right Brachial] Respiratory Rate 16 Blood Pressure 163/82 H Blood Pressure [Right Arm] Blood Pressure Mean Blood Pressure Mean [Right Arm] Blood Pressure Source Automatic Cuff Blood Pressure Source [Right Arm] Blood Pressure Position Sitting Blood Pressure Position [Right Arm] 02 Sat by Pulse Oximetry Oxygen Delivery Method Room Air Orders (Tests/Meds): ORDERS Category Date Time Status CT bony pelvis Stat Cat Scan 10/11/24 15:[address] cervical spine wo con Stat Cat Scan 10/11/24 15:[address] head/brain wo con Stat Cat Scan 10/11/24 15:00 Completed Medical Decision Narrative: Patient is a 88-year-old female with a past medical history of A-fib on [facility] who presents to the emergency department after a fall 10 to 11 days ago. Patient reports pain with ambulating now having to use a walker. On arrival, patient was hemodynamically stable with unremarkable vital signs. Differential includes but not limited to: Fracture, dislocation, sprain, strain, intracranial pathology, cervical spine fracture, amongst others. Patient CT head and CT cervical spine were reviewed and interpreted by myself and showed no acute pathology. CT bony pelvis showed right sided inferior pubic rami fracture. I discussed the case with orthopedics and they stated that this is a nonoperative fracture and given that patient is already weightbearing with a walker they felt that patient was appropriate for home management. Patient was advised to use pain control with Tylenol and ibuprofen weight-bear as tolerated and to follow- up in the orthopedic clinic. Return precautions were discussed. Patient also had a 3.4 cm infrarenal abdominal aortic aneurysm that the patient was made aware of and was recommended to follow-up with vascular surgery and her primary care provider. Patient was otherwise discharged home in stable condition. Critical Care Critical Care Time Critical Care Time: No
--- NOTE | 2024-10-11 13:28 | PC.NURSE ---
Pt is resting in the bed at this time. NO needs voiced
--- NOTE | 2024-10-11 14:57 | PC.NURSE ---
ROUNDED ON PATIENT. APOLOGIZED FOR WAIT TIME. WATER GIVEN TO PATIENT AND DAUGHTERS. INFORMED DAUGHTERS I WOULD SPEAK TO THE PROVIDER ABOUT ENTERING ORDERS.
--- NOTE | 2024-10-11 15:00 | CT_ITS ---
PROCEDURE INFORMATION: Exam: CT Head Without Contrast Exam date and time: 10/11/2024 3:14 PM Age: 88 years old Clinical indication: Injury or trauma; Fall; Blunt trauma (contusions or hematomas) TECHNIQUE: Imaging protocol: Computed tomography of the head without contrast. Total images: 540 Radiation optimization: All CT scans at this facility use at least one of these dose optimization techniques: automated exposure control; mA and/or kV adjustment per patient size (includes targeted exams where dose is matched to clinical indication); or iterative reconstruction. COMPARISON: No relevant prior studies available. FINDINGS: Brain: Age-related atrophy and chronic white matter ischemic changes, with no evidence of an acute intracranial abnormality. No hemorrhage, mass effect or midline shift. Cerebral ventricles: The ventricular system demonstrates mild diffuse enlargement. Paranasal sinuses: Visualized sinuses are unremarkable. No fluid levels. Mastoid air cells: Visualized mastoid air cells are well aerated. Bones: Unremarkable. No acute fracture. Soft tissues: No acute changes IMPRESSION: 1. Age-related atrophy and chronic white matter ischemic changes, with no evidence of an acute intracranial abnormality. 2. No hemorrhage, mass effect or midline shift.
--- NOTE | 2024-10-11 15:00 | CT_ITS ---
PROCEDURE INFORMATION: Exam: CT Pelvis Without Contrast, Skeleton Exam date and time: 10/11/2024 3:18 PM Age: 88 years old Clinical indication: Injury or trauma; Fall; Blunt trauma (contusions or hematomas); Does not apply; Pelvic region TECHNIQUE: Imaging protocol: Computed tomography of the pelvis without contrast. Exam focused on the skeleton. Radiation optimization: All CT scans at this facility use at least one of these dose optimization techniques: automated exposure control; mA and/or kV adjustment per patient size (includes targeted exams where dose is matched to clinical indication); or iterative reconstruction. COMPARISON: No relevant prior studies available. FINDINGS: Intestine: Moderate/severe constipation. Sigmoid and descending colon diverticulosis. No bowel obstruction or thickening. Vasculature: Partially seen fusiform aneurysm of the infrarenal abdominal aorta measuring 3.4 cm in greatest dimension. Moderate atherosclerosis. Reproductive: Hysterectomy. Bones/joints: Linear minimally displaced fracture of the right inferior pubic ramus. Subtle cortical discontinuity in the left iliac wing. 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 Bone demineralization. Soft tissues: Benign calcified granuloma in the right buttock. No significant soft tissue swelling. Small fat containing umbilical hernia. IMPRESSION: 1. Linear minimally displaced fracture of the right inferior pubic ramus. 2. Subtle cortical discontinuity in the left iliac wing. Questionable for a incomplete minimally displaced fracture versus artifact from chronic degenerative changes. 3. Partially seen fusiform aneurysm of the infrarenal abdominal aorta measuring 3.4 cm in greatest dimension.
--- NOTE | 2024-10-11 15:01 | CT_ITS ---
PROCEDURE INFORMATION: Exam: CT Cervical Spine Without Contrast Exam date and time: 10/11/2024 3:16 PM Age: 88 years old Clinical indication: Injury or trauma; Fall; Blunt trauma TECHNIQUE: Imaging protocol: Computed tomography of the cervical spine without contrast. Total images: 694 Radiation optimization: All CT scans at this facility use at least one of these dose optimization techniques: automated exposure control; mA and/or kV adjustment per patient size (includes targeted exams where dose is matched to clinical indication); or iterative reconstruction. COMPARISON: No prior studies available for comparison. FINDINGS: Bones: No evidence of acute fracture. 2 mm retrolisthesis of C4 on C5 and 3 mm anterolisthesis of C7 on T1. Disc space narrowing and bilateral neural foraminal narrowing noted C4-C5, C5-C6 and C6-C7. Lungs: Lung apices are normal. Pleural spaces: Apical pleural thickening noted bilaterally. Vasculature: Mild atherosclerotic disease. Ectatic changes of the thoracic aorta. Soft tissues: Prevertebral soft tissues are within normal limits. IMPRESSION: 1. No evidence of acute fracture. 2. 2 mm retrolisthesis of C4 on C5 and 3 mm anterolisthesis of C7 on T1. 3. Ectatic changes of the thoracic aorta. Further evaluation is recommended.
--- NOTE | 2024-10-11 15:02 | PC.NURSE ---
UPDATED FAMILY ON POC. NOTIFIED RADIOLOGY OF CT SCAN
== END 2024-10-11 17:18 | disposition home or self-care (01) ==
PROVIDERS: Emergency Provider Student in an Organized Health Care Education/Training Program; PCP Family Medicine
DX: S32.591A Other specified fracture of right pubis, initial encounter for closed fracture (principal); M25.551 Pain in right hip; W19.XXXA Unspecified fall, initial encounter
CPT/HCPCS: 70450; 72125; 72192; 99285

== ENCOUNTER 2024-10-19 12:41 | Outpatient (CLI) | payer MEDICARE, SELFPAY ==
--- NOTE | 2024-10-19 | XR_ITS ---
FINAL REPORT CLINICAL HISTORY: .pain in rt hip radiating down leg COMPARISON: None FINDINGS: SINGLE VIEW PELVIS: A single view of the pelvis was obtained. There are mild degenerative changes of the bilateral hips and SI joints. A nondisplaced fracture of the right inferior pubic ramus is noted. IMPRESSION: Nondisplaced fracture right inferior pubic ramus. Reviewed, Interpreted and Dictated by Tila Bai MD Transcribed by Kristel Smith Authenticated and [facility]
--- OUTSIDE RECORDS SUMMARY | 2024-10-19 12:45 | XMS_ITS | Clinical Summary ---
[facility] Address [address] [place] [address] Care Team Providers Care Campus Director Name Role Phone Kathy Torres MD Primary Care Provider + Allergies No known active allergies Medications memantine (NAMENDA) 10 MG tablet TAKE 1 TABLET BY MOUTH TWICE A DAY FOR 90 DAYS 3 Active apixaban (ELIQUIS) 2.5 MG tablet tabletIndication s:Persistent atrial fibrillation Take 1 tablet by mouth 2 (Two) Times a Day. 180 tablet 3 3 Active Multiple Vitamins-Mineral s (PRESERVISION AREDS 2+MULTI VIT PO) PreserVision AREDS 1 po bid Active erythromycin (ROMYCIN) 5 MG/GM ophthalmic ointment erythromycin 5 mg/gram (0.5 %) eye ointment PLACE A 1/4-INCH RIBBON INTO THE LEFT EYE EVERY NIGHT AT BEDTIME Active escitalopram (LEXAPRO) 5 MG tablet escitalopram 5 mg tablet Active Melatonin 10 MG tablet Daily. Active tobramycin-dexam ethasone (TOBRADEX) 0.3-0.1 % ophthalmic suspension tobramycin 0.3 %-dexamethasone 0.1 % eye drops,suspension INSTILL 1 DROP INTO THE RIGHT EYE 4 TIMES A DAY AFTER WARM COMPRESSES Active metoprolol succinate XL (TOPROL-XL) 50 MG 24 hr tabletIndication s:Persistent atrial fibrillation,Non -rheumatic aortic stenosis,Mitral and aortic valve disease TAKE 1 TABLET BY MOUTH EVERY DAY 90 tablet 1 3 Active losartan (COZAAR) 25 MG tabletIndication s:Persistent atrial fibrillation,Non -rheumatic aortic stenosis,Mitral and aortic valve disease TAKE 1 TABLET BY MOUTH EVERY DAY 90 tablet 1 3 Active bumetanide (BUMEX) 1 MG tabletIndication s:Chronic systolic (congestive) heart failure TAKE 1 TABLET BY MOUTH EVERY DAY 90 tablet 1 3 Active Active Problems Problem Noted Date Diagnosed Date Dermatophytosis 06/05/2022 Degenerative joint disease of hand 06/05/2022 Edema 06/05/2022 Gastroesophageal reflux disease 06/05/2022 Hyperlipidemia 06/05/2022 Mitral and aortic valve disease 06/05/2022 Assessment & Plan (06/05/2022 11:23 PM EST): - December 25, 2021 echo reviewed. EF 30 to 35%, mild concentric left ventricular hypertrophy, moderate aortic regurgitation, severe mitral regurgitation, mild tricuspid regurgitation. -April 27, 2022 echo with an EF 33%, moderate aortic valve regurgitation, mild aortic valve stenosis, severe mitral valve regurgitation. - Patient and family are not interested in surgical interventions at this time. They are okay with treating symptomatically and serial echoes. They have opted for annual echoes instead of every 6 months. Osteoarthritis of wrist 06/05/2022 Pelvic mass 06/05/2022 Presence of cardiac pacemaker 06/05/2022 Assessment & Plan (06/05/2022 11:15 PM EST): - Interrogated in clinic today. Good battery and good leads. Battery expectancy approximately 4.4 years. No events seen. Chronic systolic (congestive) heart failure 01/28 Assessment & Plan (06/05/2022 11:24 PM EST): - December 25, 2021 echo reviewed. EF 30 to 35%, mild concentric left ventricular hypertrophy, moderate aortic regurgitation, severe mitral regurgitation, mild tricuspid regurgitation. - -April 27, 2022 echo with an EF 33%, moderate aortic valve regurgitation, mild aortic valve stenosis, severe mitral valve regurgitation. - Patient and family are not interested in surgical interventions at this time. They are okay with treating symptomatically and serial echoes. They have opted for annual echoes instead of every 6 months. Sick sinus syndrome 02/02/2017 Persistent atrial fibrillation 02/02/2017 Overview (02/02/2017): Added automatically from request for surgery [id number] Assessment & Plan (06/05/2022 11:14 PM EST): - Rate controlled. On metoprolol and Eliquis. Non-rheumatic aortic stenosis 02/02/2017 Overview (02/02/2017): Added automatically from request for surgery [id number] Assessment & Plan (06/05/2022 11:24 PM EST): - December 25, 2021 echo reviewed. EF 30 to 35%, mild concentric left ventricular hypertrophy, moderate aortic regurgitation, severe mitral regurgitation, mild tricuspid regurgitation. --April 27, 2022 echo with an EF 33%, moderate aortic valve regurgitation, mild aortic valve stenosis, severe mitral valve regurgitation. - Patient and family are not interested in surgical interventions at this time. They are okay with treating symptomatically and serial echoes. They have opted for annual echoes instead of every 6 months. 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 Echo 06/17/16: EF 60%, LVH, borderline RV enlargement, borderline LA enlargement, moderate mitral insufficiency, mild to moderate aortic insufficiency, no stenosis ([facility], Yolanda Bonilla M.D.) Immunizations Immunization Administration Dates Next Due COVID-19 (MODERNA) 1st,2nd,3 rd Dose Monovalent 07/06/2020,07/06/2020,06/05/2020,06/05 DTaP 5 08/25/2013 Fluad Quad 65+ 02/24/2021 Fluzone High-Dose 65+YRS 02/24/2021 Fluzone High-Dose 65+yrs 02/26/2022 Pneumococcal Conjugate 13-Va lent (PCV13) 10/10/2014 Pneumococcal Polysaccharide (PPSV23) 02/02/2012 Zostavax 01/22/2015 Family History Medical History Relation Name Comments No Known Problems Brother No Known Problems Daughter 1 No Known Problems Daughter 2 No Known Problems Daughter 3 Colon cancer Father No Known Problems Maternal Grandfather No Known Problems Maternal Grandmother Brain cancer Mother No Known Problems Paternal Grandfather No Known Problems Paternal Grandmother No Known Problems Sister 1 No Known Problems Sister 2 Relation Name Status Comments Brother Alive Daughter 1 Alive Daughter 2 Alive Daughter 3 Alive Father Maternal Grandfather Maternal Grandmother Mother Paternal Grandfather Paternal Grandmother Sister 1 Alive Sister 2 Social History Tobacco Use Types Packs/Day Years Used Date Smoking Tobacco: Never Smokeless Tobacco: Never Tobacco Cessation:Counseling Given: Not Answered Alcohol Use Standard Drinks/Week Comments No 0 (1 standard drink = 0.6 oz pur e alcohol) Abuse Screen Answer Date Recorded Unsafe at Home or Work/School Not on file Feels Threatened by Someone? Not on file 11/2022 Does Anyone Keep You from Co ntacting Others or Doint Things Outside the Home? Not on file 01/05/2023 Physical Sign of Abuse Present Not on file 1 Housing Stability Answer Date Recorded Current Living Arrangements Not on file 11/2022 Potentially Unsafe Housing Conditions Not on oscar e 01/05/2023 Family and Community Support Answer Arturo e Recorded Help with Day-to-Day Activities Not on file 01/05/2023 Lonely or Isolated Not on file 01/05/2023 Employment Answer Date Recorded Do you want help finding or keeping work or a luis b? Not on file 01/05/2023 Disabilities Answer Date Recorded Concentrating, Remembering, or Making Decisions Difficulty Not on file 01/05/2023 Doing Errands Independently Difficulty Not on fi le 01/05/2023 Education Answer Date Recorded Help with school or training? Not on file Preferred Language Not on file 01/05/2023 Comments No Sex and Gender Information Value Date Recorded Sex Assigned at Not on file Legal Sex Female 1:30 PM EDT Gender Identity Not on file Sexual Orientation Not on file Occupation Industry Job Start Date Job End Date RETIRED Not on file Not on file Not on file Last Filed Vital Signs Vital Sign Reading Time Taken Comments Blood Pressure 128/64 06/04/2022 1:35 PM EST Pulse 72 06/04/2022 1:35 PM EST Temperature 36.3 C (97.3 F) 03/22/2019 7:30 AM EST Respiratory Rate 18 03/22/2019 7:30 AM EST Oxygen Saturation 96% 06/04/2022 1:35 PM EST Inhaled Oxygen Concentration - - Weight 62.6 kg (138 lb) 06/04/2022 1:35 PM EST 1 38 lb Height 160 cm (5' 3 ) 06/04/2022 1:35 PM EST Body Mass Index 24.45 06/04/2022 1:35 PM EST Plan of Treatment Health Maintenance Due Date Last Done Comments DXA SCAN 1935 TDAP/TD VACCINES (1 - Tdap) 11/12/1954 RSV Vaccine - Adults (1 - 1- dose 75+ series) 11/12/2010 ZOSTER VACCINE (2 of 3) 03/19/2015 01/22/2015 ANNUAL WELLNESS VISIT 07/03/2016 LIPID PANEL 07/10/2017 07/10/2016 COVID-19 Vaccine (2023-2 5 season) 2023 02/24/2021, 07/06/2020, 07/06/2020, Additional history exists INFLUENZA VACCINE 12/28/2024 02/26/2022, , 02/24/2021 Pneumococcal Vaccine 50+ Completed 10/10/2014, 07/2011 Medical Devices Implanted Type Area Tapper Supervisor Device Identifier Shelf Expiration Date Model / Serial / Lot Ld Pm Mri Tendril [id number] - [id number] - [id number] Implanted:Qty: 1 on 02/10/2017 by Olga Chacon MD at [facility] Lead [employer] 05/07/2017 [id number] / [id number] / Ld Pm Mri Tendril [id number] - [id number] - [id number] Implanted:Qty: 1 on 02/10/2017 by Olga Chacon MD at [facility] Lead [employer] 02/26/2017 [id number] / [id number] / Ld Quartet Surgery Scheduling Coordinator Vent Lng Spacing 86cm - [id number] - [id number] Implanted:Qty: 1 on 03/21/2019 by Jakob Young MD at [facility] Lead [employer] 07/27/2021 [id number] / [id number] / Gen Pm Assurity Mri Dr Rf [id number] - [id number] - [id number] Implanted:Qty: 1 on 02/10/2017 by Olga Chacon MD at [facility] Pacemaker [employer] 07/27/2018 [id number] / [id number] / Gen Pm Quadra Allure Mp Crtp [id number] - [id number] - [id number] Implanted:Qty: 1 on 03/21/2019 by Jakob Young MD at [facility] Pacemaker [employer] 08/27/2020 [id number] / [id number] / Procedures Procedure Name Priority Date/Time Associated Diagnosis Comments LIPID PANEL STAT 07/10/2016 9:00 AM EDT from Last 3 Months or Most Recently Relevant to Health Maintenance Results * (ABNORMAL) Lipid Panel (07/10/2016 9:00 AM EDT) Total Cholesterol 198 0 - 200 mg/dL 07/10/2016 9:45 AM EDT [facility] Triglycerides 85 0 - 150 mg/dL 07/10/2016 9:45 AM EDT [facility] HDL Cholesterol 48 40 - 60 mg/dL 07/10/2016 9:45 AM EDT [facility] LDL Cholesterol 141(H) 0 - 130 mg/dL 07/10/2016 9:45 AM EDT [facility] Blood Line / Unknown 07/10/2016 9: 00 AM EDT 07/10/2016 9:20 AM EDT Narrative [facility] - 07/10/2016 9:45 AM EDT Cholesterol Reference Ranges: Desirable < 200 mg/dL Borderline 200-239 mg/dL High Risk > 239 mg/dL Triglyceride Reference Ranges: Normal < 150 mg/dL Borderline 150-199 mg/dL High 200-499 mg/dL Very High > 499 mg/dL HDL Reference Ranges: Low < 40 mg/dL High > 59 mg/dL LDL Reference Ranges: Optimal < 100 mg/dL Near Optimal 100-129 mg/dL Borderline 130-159 mg/dL High 160-189 mg/dL Very High > 189 mg/dL [employer] AFTER SCHOOL PROGRAM ASSISTANT LAB BLOOD ORDERABLES Final Result [facility]
[address] [place] [address], from Last 3 Months or Most Recently Relevant to Health Maintenance [place] [address] [facility] MEDICARE ADVANTAGE PPO Advance Directives Documents on File Type Date Recorded Patient Event Staff Member Expl anation PATIENT ADVANCE DIRECTIVES - SCAN 01/20/2022 8:50 AM ADVANCE DIRECTIVE PATIENT ADVANCE DIRECTIVES - SCAN 02/22/2019 11:12 AM NO BLOOD 07/08/2016 Care Teams Campus Director Relationship Specialty Start Date End Date Kathy Torres MD [address] [place], [place] [id number] PCP - General Family Medicine 06/09/16
--- OUTSIDE RECORDS SUMMARY | 2024-10-19 12:45 | XMS_ITS | Encounter Summary ---
Author Organization [facility] Address [address] [place] [address] Care Team Providers Care Disease Education Specialist Name Role Phone Kathy Torres MD Primary Care Provider + Encounter Details Date Type Department Care Team (Late st Contact Info) Description 10/07/2012 Conversion Encounter [facility] [address] [place] [address] Interface, See Report Social History Tobacco Use Types Packs/Day Years Used Date Smoking Tobacco: Never Assessed Comments Unknown Sex and Gender Information Value Date Recorded Sex Assigned at Not on file Legal Sex Female 1:30 PM EDT Gender Identity Not on file Sexual Orientation Not on file documented as of this encounter Progress Notes * Interface, See Report - 10/07/2012 12:00 AM EDT [facility] [address] [place], [place] [id number] Patient: DINORA NUGENT MR #: : [id number] Date of Visit: 10/07/2012 Attending Physician: Keyshawn Leach Dictated By: KEYSHAWN LEACH Referring Physician: DEE GRANADOS PCP: Kathy Torres Diagnosis: LABIAL ABCESS; MRSA Allergies: SIMVASTATIN, BACTRIM DS History of present illness: 76 yo PTC to follow up on MRSA left labial abscess. She presents today and reports improvement in her symptoms. Labial swelling and pain have decreased significantly. Pt was seen by ID for outpt management of antibiotics. No other gynecological concerns, but pt was seen in ED last night and treated for GERD/hiatal hernia symptoms. She was noted to have a 15mm nodule onCXR of which more views were req uested. Past medical history: Medical: HYPERTENSION; HEART DISEASE; H/O OVARIAN CYST; TINIITIS; ARTHRITIS; CARPAL TUNNEL; FIBROMYALGIA; MIGRAINE; LT BREAST OBOCYSTIC DISEASE; MRSA Surgical: PARTIAL HYSTERECTOMY; BLADDER SURGERY; APPENDECTOMY; LAPAROSCOPY FOR CYST TO OUTSIDE OF COLON,; CATARACT; ROTATOR CUFF; SHOULDER, LEFT OVARIAN CYST, LEFT BREAST X2, BLADDER tack Health maintenance: Mammogram: Colonoscopy: Pap smear: 03/30/07 Tumor Marker: CT Scan: BMD: Review of systems: Constitutional: No change in weight, no excessive fatigue Psychiatric: +INSOMNIA. No history of anxiety, depression, bipolar disorder Respiratory: No shortness of breath, cough, asthma, wheezing Cardiovascular: +HTN; +HEART DZ. No angina, orthopnea, edema, murmur, hyperlipidemia Gastrointestinal: + CHEST DISCOMFORT. No constipation or diarrhea, no reflux, nausea, or vomiting Genitourinary: No dysuria, hematuria, urgency, or frequency Neurologic: +FIBROMYALGIA; +MIGRAINES. No numbness, weakness, syncope, seizures Gynecologic: +LABIAL ABCESS. No abnormal bleeding, vaginal discharge, pelvic pain, of h/o abnml papsmears LMP: P: 3 Vag Deliveries: 3 C-sec: 0 Misc: 0 Additional notes: +LT BREAST CYSTIC DZ; +C.TUNNEL; +ARTHRITIS; +GLASSES Medications: Medication Reconciliation for the patient has been reviewed in the EMR. Physical exam: Constitutional: Weight 149 Height BP 128/90 Pulse Temp Neurological/Psychiatric: HEENT: Neck: Respiratory: Cardiovascular: Breasts: Gastrointestinal: ; small area of eythema in belly button Lymphatic: ; inguinal adenopathy resolved Extremities: Gynecologic: External Genitalia: Small area of induration about 1 cm. Improved from prior exam. No further drainage or exudate. Minimal eythema, but does have a new area of posterior irritation 2/2 moisture Vagina: Cervix: Uterus: Ovaries: Parametria: Rectovaginal: Hemoccult: Procedure note: Assessment: 76 yo with POP and left labial abscess Plan: Abscess resolving, intructed pt to continue general vulvar care and to take note to dry the area following cleansing. P britney for follow up in 3 months following complete resoluation of abscess to discuss plan for POP Repeat CXR ordered Approved by: Keyshawn Leach 10/07/2012, 5:58 PM cc: Kathy Torres, Infectious Disease documented in this encounter Plan of Treatment Not on file documented as of this encounter Visit Diagnoses Not on filedocumented in this encounter Care Teams Disease Education Specialist Relationship Specialty Start Date End Date Kathy Torres MD [address] [place], [place] [phone] PCP - General Family Medicine 06/09/16 documented as of this encounter
--- OUTSIDE RECORDS SUMMARY | 2024-10-19 12:45 | XMS_ITS | Data Portability ---
Author Organization [facility] Address [address] [facility] [place] [address] Care Team Providers Care Switchboard Receptionist Name Role Phone ANNETTA DAVENPORT Referring Provider KEYSHAWN BRENNAN Referring Provider [phone] JOANNE SERNA Referring Provider Assessment Encounter Date Assessment Date Assessment LastModified [...] recommend a urinalysis and pcr GI specimen. [email or web address] Not available 05/05/2022 21:24:19 12/04/2022 12/04/2022 Ketty [...] Daughter is a POA and patient is Orthodoxy and will not take transfusions or resuscitation. [...] Daughter is a POA and patient is Orthodoxy and will not take transfusions or resuscitation. [...] None recorded. Lab urinalysis, dipstick 2022 023 [facility], [address] [place], [address], 3 16:10:37 gastrointes tinal pathogens panel, PCR, stool 2022 023 otf n5 [facility], [address] [place], [address], 3 08:21:44 CMP, serum or plasma 2021 022 [facility], [address] [place], [address], 07:14:23 TSH, serum or plasma 2021 [facility], [address] [place], [address], 07:14:24 CBC w/ auto diff 2021 022 [facility], [address] [place], [address], 07:14:25 Referral None recorded. Procedures None recorded. Surgeries None recorded. Imaging None recorded. Medication Orders cephalexin 500 mg capsule 2024 025 [id number], [address] [place], [address], 5 14:55:24 fluconazole 150 mg tablet 2024 025 [facility], [address] [place], [address], 5 14:55:24 nystatin 100,000 unit/gram topical cream 2023 024 [facility], [address] [place], [address], 4 14:35:23 nystatin 100,000 unit/gram topical powder 2023 024 [facility] #[facility]016, [address] [place], [address], 14:35:24 erythromyci n 5 mg/gram (0.5 %) eye ointment 2021 022 [facility] #[id number], [address] [place], [address], 14:14:54 Patient TargetsNo targets recorded. Patient Instructions Encounter Date Encounter Id Patient Instructions Last Modified By Organization Details Last Modified Time 03/03/2022 [id number] blepharitis: car e instructions Not available 03/03/2022 16:17:28 05/05/2022 [id number] diarrhea: care instructions Not available 05/05/2022 15:24:28 12/04/2022 [id number] taking direct or al anticoagulants safely: care instructions Not available 12/04/2022 14:26:52 01/14/2024 [id number] taking direct or al anticoagulants safely: care instructions Not available 01/14/2024 14:35:20 Reason for Referral None Reported. Results Created Date Observation Date Name Description Value Unit Range Abnormal Flag Note LastModifiedBy Organization Detail LastModifiedTime 03/03/2003/04/2022 COMPR EHENS JAYNE METAB OLIC PANEL glucose 97 mg/dL 65-99 normal Fasti ng refer ence inter andreea Not Available [employer] [facility] [address] [place], [address], 03/04/2022 07:14:23 03/03/20 22 03/04/2022 COMPR EHENS JAYNE METAB OLIC PANEL urea nitrogen (BUN) 27 mg/dL 7-25 high Not Available [facility] [address] [place], [address], 03/04/2022 07:14:23 03/03/20 22 03/04/2022 COMPR EHENS JAYNE METAB OLIC PANEL creatinine 1.11 mg/dL 0.60-0 .95 high Not Available [facility] [address] [facility] [place], [address], 03/04/2022 07:14:23 03/03/20 22 03/04/2022 COMPR EHENS [...] kdoqi /gfr% 5Fcal culat or Not Available [facility] [address] [place], [address], 03/04/2022 07:14:23 03/03/20 22 03/04/2022 COMPR EHENS JAYNE METAB OLIC PANEL BUN/creatini ne ratio 24 (calc ) 6-22 high Not Available [facility] [address] [place], [address], 03/04/2022 07:14:23 03/03/20 22 03/04/2022 COMPR EHENS JAYNE METAB OLIC PANEL sodium 138 mmol/ L 135-14 6 normal Not Available [facility] [address] [place], [address], 03/04/2022 07:14:23 03/03/20 22 03/04/2022 COMPR EHENS JAYNE METAB OLIC PANEL potassium 3.7 mmol/ L 3.5-5. 3 normal Not Available [employer] [facility] [address] [place], [address], 03/04/2022 07:14:23 03/03/20 22 03/04/2022 COMPR EHENS JAYNE METAB OLIC PANEL chloride 100 mmol/ L 98-110 normal Not Available [facility] [place] [facility] [address] [place], [address], 03/04/2022 07:14:23 03/03/20 22 03/04/2022 COMPR EHENS JAYNE METAB OLIC PANEL carbon dioxide 30 mmol/ L 20-32 normal Not Available [facility] [address] [facility] [place], [address], 03/04/2022 07:14:23 03/03/20 22 03/04/2022 COMPR EHENS JAYNE METAB OLIC PANEL calcium 10.0 mg/dL 8.6-10 .4 normal Not Available [facility] [address] [place], [address], 03/04/2022 07:14:23 03/03/20 22 03/04/2022 COMPR EHENS JAYNE METAB OLIC PANEL protein, total 7.2 g/dL 6.1-8. 1 normal Not Available [facility] [address] [facility] [place], [address], 03/04/2022 07:14:23 03/03/20 22 03/04/2022 COMPR EHENS JAYNE METAB OLIC PANEL albumin 4.4 g/dL 3.6-5. 1 normal Not Available [facility] [address] [facility] [place], [address], 03/04/2022 07:14:23 03/03/20 22 03/04/2022 COMPR EHENS JAYNE METAB OLIC PANEL globulin 2.8 g/dL_ (calc ) 1.9-3. 7 normal Not Available [facility] [address] [place], [address], 03/04/2022 07:14:23 03/03/20 22 03/04/2022 COMPR EHENS JAYNE METAB OLIC PANEL albumin/glob ulin ratio 1.6 (calc ) 1.0-2. 5 normal Not Available [facility] [address] [place], [address], 03/04/2022 07:14:23 03/03/20 22 03/04/2022 COMPR EHENS JAYNE METAB OLIC PANEL bilirubin, total 0.6 mg/dL 0.2-1. 2 normal Not Available [facility] [address] [place], [address], 03/04/2022 07:14:23 03/03/20 22 03/04/2022 COMPR EHENS JAYNE METAB OLIC PANEL alkaline phosphatase 97 U/L 37-153 normal Not Available [facility] [employer] [facility] [address] [place], [address], 03/04/2022 07:14:23 03/03/20 22 03/04/2022 COMPR EHENS JAYNE METAB OLIC PANEL AST 14 U/L 10-35 normal Not Available [employer] [facility] [address] [place], [address], 03/04/2022 07:14:23 03/03/20 22 03/04/2022 COMPR EHENS JAYNE METAB OLIC PANEL ALT 9 U/L 6-29 normal Not Available [employer] [facility] [address] [place], [address], 03/04/2022 07:14:23 03/03/20 22 03/04/2022 TSH TSH 3.73 mIU/L 0.40-4 .50 normal Not Available [employer] [facility] [address] [place], [address], 03/04/2022 07:14:24 03/03/20 22 03/04/2022 CBC (INCL UDES DIFF/ PLT) white blood cell count 7.3 thous and/u L 3.8-10 .8 normal Not Available [employer] [facility] [address] [place], [address], 03/04/2022 07:14:25 03/03/20 22 03/04/2022 CBC (INCL UDES DIFF/ PLT) red blood cell count 4.57 jojo on/uL 3.80-5 .10 normal Not Available [facility] [address] [facility] [place], [address], 03/04/2022 07:14:25 03/03/20 22 03/04/2022 CBC (INCL UDES DIFF/ PLT) hemoglobin 13.5 g/dL 11.7-1 5.5 normal Not Available [facility] [address] [facility] [place], [address], 03/04/2022 07:14:25 03/03/20 22 03/04/2022 CBC (INCL UDES DIFF/ PLT) hematocrit 39.8 % 35.0-4 5.0 normal Not Available [facility] [address] [place], [address], 03/04/2022 07:14:25 03/03/20 22 03/04/2022 CBC (INCL UDES DIFF/ PLT) MCV 87.1 fL 80.0-1 00.0 normal Not Available [facility] [address] [facility] [place], [address], 03/04/2022 07:14:25 03/03/20 22 03/04/2022 CBC (INCL UDES DIFF/ PLT) MCH 29.5 pg 27.0-3 3.0 normal Not Available [facility] [address] [place], [address], 03/04/2022 07:14:25 03/03/20 22 03/04/2022 CBC (INCL UDES DIFF/ PLT) MCHC 33.9 g/dL 32.0-3 6.0 normal Not Available [facility] [address] [place], [address], 03/04/2022 07:14:25 03/03/20 22 03/04/2022 CBC (INCL UDES DIFF/ PLT) RDW 13.0 % 11.0-1 5.0 normal Not Available [facility] [place] [facility] [address], [place], [address], 03/04/2022 07:14:25 03/03/20 22 03/04/2022 CBC (INCL UDES DIFF/ PLT) platelet count 230 thous and/u L 140-40 0 normal Not Available [facility] [place] [facility] [address], [place], [address], 03/04/2022 07:14:25 03/03/20 22 03/04/2022 CBC (INCL UDES DIFF/ PLT) MPV 10.3 fL 7.5-12 .5 normal Not Available [facility] [place] [facility] [address], [place], [address], 03/04/2022 07:14:25 03/03/20 22 03/04/2022 CBC (INCL UDES DIFF/ PLT) absolute neutrophils 4460 cells /uL 1500-7 800 normal Not Available [facility] [place] [facility] [address], [place], [address], 03/04/2022 07:14:25 03/03/20 22 03/04/2022 CBC (INCL UDES DIFF/ PLT) absolute lymphocytes 2066 cells /uL 850-39 00 normal Not Available [facility] [place] [facility] [address], [place], [address], 03/04/2022 07:14:25 03/03/20 22 03/04/2022 CBC (INCL UDES DIFF/ PLT) absolute monocytes 475 cells /uL 200-95 0 normal Not Available [facility] [place] [facility] [address], [place], [address], 03/04/2022 07:14:25 03/03/20 22 03/04/2022 CBC (INCL UDES DIFF/ PLT) absolute eosinophils 248 cells /uL 15-500 normal Not Available [facility] [place] [facility] [address], [place], [address], 03/04/2022 07:14:25 03/03/20 22 03/04/2022 CBC (INCL UDES DIFF/ PLT) absolute basophils 51 cells /uL 0-200 normal Not Available [facility] [place] [facility] [address], [place], [address], 03/04/2022 07:14:25 03/03/20 22 03/04/2022 CBC (INCL UDES DIFF/ PLT) neutrophils 61.1 % normal Not Available [facility] [place] [facility] [address], [place], [address], 03/04/2022 07:14:25 03/03/20 22 03/04/2022 CBC (INCL UDES DIFF/ PLT) lymphocytes 28.3 % normal Not Available [facility] [place] [facility] [address], [place], [address], 03/04/2022 07:14:25 03/03/20 22 03/04/2022 CBC (INCL UDES DIFF/ PLT) monocytes 6.5 % normal Not Available [facility] [place] [facility] [address], [place], [address], 03/04/2022 07:14:25 03/03/20 22 03/04/2022 CBC (INCL UDES DIFF/ PLT) eosinophils 3.4 % normal Not Available [facility] [place] [facility] [address], [place], [address], 03/04/2022 07:14:25 03/03/20 22 03/04/2022 CBC (INCL UDES DIFF/ PLT) basophils 0.7 % normal Not Available [facility] [place] [facility] [address], [place], [address], 03/04/2022 07:14:25 05/06/19 23 05/06/2022 urina lysis , dipst ick Leukocytes Negati ve Not Available [facility] [address] [place], [address], 05/05/2022 15:23:02 05/06/19 23 05/06/2022 urina lysis , dipst ick Nitrite negati ve Not Available [facility] [address] [place], [address], 05/05/2022 15:23:02 05/06/19 23 05/06/2022 urina lysis , dipst ick Urobilinogen .2 Not Available [facility] [address] [place], [address], 05/05/2022 15:23:02 05/06/19 23 05/06/2022 urina lysis , dipst ick Protein Negati ve Not Available [facility] [address] [place], [address], 05/05/2022 15:23:02 05/06/19 23 05/06/2022 urina lysis , dipst ick pH 6.0 Not Available [facility] [address] [place], [address], 05/05/2022 15:23:02 05/06/19 23 05/06/2022 urina lysis , dipst ick Blood Negati ve Not Available [facility] [address] [place], [address], 05/05/2022 15:23:02 05/06/19 23 05/06/2022 urina lysis , dipst ick Specific Aladdin 1.010 Not Available [facility] [address] [place], [address], 05/05/2022 15:23:02 05/06/19 23 05/06/2022 urina lysis , dipst ick Ketone Negati ve Not Available [facility] [address] [place], [address], 05/05/2022 15:23:02 05/06/19 23 05/06/2022 urina lysis , dipst ick Bilirubin Negati ve Not Available [facility] [address] [place], [address], 05/05/2022 15:23:02 05/06/19 23 05/06/2022 urina lysis , dipst ick Glucose Negati ve Not Available [facility] [address] [place], [address], 05/05/2022 15:23:02 11/25/19 23 11/25/2022 LIPID PANEL , STAND SARAH cholesterol, total 294 mg/dL <200 high Not Available [facility] [place] [facility] [address] [place], [address], 11/25/2022 08:30:31 11/25/19 23 11/25/2022 LIPID PANEL , STAND SARAH HDL cholesterol 43 mg/dL > or = 50 low Not Available [facility] [place] [facility] [address] [place], [address], 11/25/2022 08:30:31 11/25/19 23 11/25/2022 LIPID PANEL , STAND SARAH triglyceride s 286 mg/dL <150 high If a non-f astin g speci men was colle cted, consi jose daniel repea t trigl yceri de testi ng on a fasti ng speci men if clini pavel indic ated. Troy franklin et al. J. of Clin. Lipid ol. 2015; 9:129 -169. Not Available [facility] [place] [facility] [address] [place], [address], 11/25/2022 08:30:31 11/25/19 23 11/25/2022 LIPID PANEL [...] ement . Europ dawson Heart Journ al, 35(35 ), 5928- 8803. Refer ence range : <100 Louis able [...] 2068 (http ://ed dee deeati on.Natasha high Niftis. com/f aq/FA Q164) Not Available [facility] [place] [facility] [address] [facility], [place], [address], 11/25/2022 08:30:31 11/25/19 23 11/25/2022 LIPID PANEL , STAND SARAH chol/HDLC ratio 6.8 (calc ) <5.0 high Not Available [facility] [place] [facility] [address] [facility], [place], [address], 11/25/2022 08:30:31 11/25/19 23 11/25/2022 LIPID PANEL [...] optio n. Not Available [facility] [place] [facility] [address] [facility], [place], [address], 11/25/2022 08:30:31 11/25/1911/25/2022 COMPR EHENS JAYNE METAB OLIC PANEL glucose 151 mg/dL 65-99 high Fasti ng refer ence inter andreea For someo ne witho ut known diabe damian, a gluco se value >125 mg/dL indic ates that they may have diabe damian and this shoul d be confi rmed with a follo w-up test. Not Available [facility] [place] [facility] [address] [place], [address], 11/25/2022 08:30:31 11/25/19 23 11/25/2022 COMPR EHENS JAYNE METAB OLIC PANEL urea nitrogen (BUN) 19 mg/dL 7-25 normal Not Available [facility] [address] [facility] [place], [address], 11/25/2022 08:30:31 11/25/19 23 11/25/2022 COMPR EHENS JAYNE METAB OLIC PANEL creatinine 1.22 mg/dL 0.60-0 .95 high Not Available [facility] [address] [place], [address], 11/25/2022 08:30:31 11/25/19 23 11/25/2022 COMPR EHENS JAYNE METAB OLIC PANEL eGFR 43 mL/mi n/1.7 3m2 > or = 60 low Not Available [facility] [address] [place], [address], 11/25/2022 08:30:31 11/25/19 23 11/25/2022 COMPR EHENS JAYNE METAB OLIC PANEL BUN/creatini ne ratio 16 (calc ) 6-22 normal Not Available [facility] [address] [place], [address], 11/25/2022 08:30:31 11/25/19 23 11/25/2022 COMPR EHENS JAYNE METAB OLIC PANEL sodium 140 mmol/ L 135-14 6 normal Not Available [facility] [address] [place], [address], 11/25/2022 08:30:31 11/25/19 23 11/25/2022 COMPR EHENS JAYNE METAB OLIC PANEL potassium 3.6 mmol/ L 3.5-5. 3 normal Not Available [facility] [address] [place], [address], 11/25/2022 08:30:31 11/25/19 23 11/25/2022 COMPR EHENS JAYNE METAB OLIC PANEL chloride 101 mmol/ L 98-110 normal Not Available [facility] [address] [facility] [place], [address], 11/25/2022 08:30:31 11/25/19 23 11/25/2022 COMPR EHENS JAYNE METAB OLIC PANEL carbon dioxide 30 mmol/ L 20-32 normal Not Available [facility] [address] [place], [address], 11/25/2022 08:30:31 11/25/19 23 11/25/2022 COMPR EHENS JAYNE METAB OLIC PANEL calcium 9.6 mg/dL 8.6-10 .4 normal Not Available [facility] [address] [facility] [place], [address], 11/25/2022 08:30:31 11/25/19 23 11/25/2022 COMPR EHENS JAYNE METAB OLIC PANEL protein, total 7.1 g/dL 6.1-8. 1 normal Not Available [facility] [address] [facility] [place], [address], 11/25/2022 08:30:31 11/25/19 23 11/25/2022 COMPR EHENS JAYNE METAB OLIC PANEL albumin 4.1 g/dL 3.6-5. 1 normal Not Available [facility] [address] [place], [address], 11/25/2022 08:30:31 11/25/19 23 11/25/2022 COMPR EHENS JAYNE METAB OLIC PANEL globulin 3.0 g/dL_ (calc ) 1.9-3. 7 normal Not Available [facility] [address] [facility] [place], [address], 11/25/2022 08:30:31 11/25/19 23 11/25/2022 COMPR EHENS JAYNE METAB OLIC PANEL albumin/glob ulin ratio 1.4 (calc ) 1.0-2. 5 normal Not Available [facility] [address] [facility] [place], [address], 11/25/2022 08:30:31 11/25/19 23 11/25/2022 COMPR EHENS JAYNE METAB OLIC PANEL bilirubin, total 0.9 mg/dL 0.2-1. 2 normal Not Available [facility] [address] [facility] [place], [address], 11/25/2022 08:30:31 11/25/19 23 11/25/2022 COMPR EHENS JAYNE METAB OLIC PANEL alkaline phosphatase 89 U/L 37-153 normal Not Available [facility] [employer] [facility] [address] [facility] [place], [address], 11/25/2022 08:30:31 11/25/19 23 11/25/2022 COMPR EHENS JAYNE METAB OLIC PANEL AST 14 U/L 10-35 normal Not Available [facility] [address] [facility] [place], [address], 11/25/2022 08:30:31 11/25/19 23 11/25/2022 COMPR EHENS JAYNE METAB OLIC PANEL ALT 8 U/L 6-29 normal Not Available [employer] [facility] [address] [facility] [place], [address], 11/25/2022 08:30:31 11/25/19 23 11/25/2022 TSH TSH 5.83 mIU/L 0.40-4 .50 high Not Available [employer] [facility] [address] [facility] [place], [address], 11/25/2022 08:30:32 11/25/19 23 11/25/2022 CBC (INCL UDES DIFF/ PLT) white blood cell count 8.0 thous and/u L 3.8-10 .8 normal Not Available [facility] [place] [facility] [address] [facility] [place], [address], 11/25/2022 08:30:39 11/25/19 23 11/25/2022 CBC (INCL UDES DIFF/ PLT) red blood cell count 4.43 jojo on/uL 3.80-5 .10 normal Not Available [facility] [address] [facility] [place], [address], 11/25/2022 08:30:39 11/25/1911/25/2022 CBC (INCL UDES DIFF/ PLT) hemoglobin 13.1 g/dL 11.7-1 5.5 normal Not Available [facility] [address] [place], [address], 11/25/2022 08:30:39 11/25/19 23 11/25/2022 CBC (INCL UDES DIFF/ PLT) hematocrit 40.3 % 35.0-4 5.0 normal Not Available [facility] [address] [facility] [place], [address], 11/25/2022 08:30:39 11/25/1911/25/2022 CBC (INCL UDES DIFF/ PLT) MCV 91.0 fL 80.0-1 00.0 normal Not Available [facility] [address] [facility] [place], [address], 11/25/2022 08:30:39 11/25/1911/25/2022 CBC (INCL UDES DIFF/ PLT) MCH 29.6 pg 27.0-3 3.0 normal Not Available [facility] [address] [place], [address], 11/25/2022 08:30:39 11/25/19 23 11/25/2022 CBC (INCL UDES DIFF/ PLT) MCHC 32.5 g/dL 32.0-3 6.0 normal Not Available [facility] [address] [place], [address], 11/25/2022 08:30:39 11/25/19 23 11/25/2022 CBC (INCL UDES DIFF/ PLT) RDW 13.6 % 11.0-1 5.0 normal Not Available [facility] [address] [place], [address], 11/25/2022 08:30:39 11/25/19 23 11/25/2022 CBC (INCL UDES DIFF/ PLT) platelet count 229 thous and/u L 140-40 0 normal Not Available [facility] [address] [place], [address], 11/25/2022 08:30:39 11/25/19 23 11/25/2022 CBC (INCL UDES DIFF/ PLT) MPV 9.6 fL 7.5-12 .5 normal Not Available [facility] [address] [place], [address], 11/25/2022 08:30:39 11/25/19 23 11/25/2022 CBC (INCL UDES DIFF/ PLT) absolute neutrophils 4064 cells /uL 1500-7 800 normal Not Available [facility] [address] [place], [address], 11/25/2022 08:30:39 11/25/19 23 11/25/2022 CBC (INCL UDES DIFF/ PLT) absolute lymphocytes 3256 cells /uL 850-39 00 normal Not Available [facility] [address] [place], [address], 11/25/2022 08:30:39 11/25/19 23 11/25/2022 CBC (INCL UDES DIFF/ PLT) absolute monocytes 440 cells /uL 200-95 0 normal Not Available [facility] [address], [place], [address], 11/25/2022 08:30:39 11/25/19 23 11/25/2022 CBC (INCL UDES DIFF/ PLT) absolute eosinophils 200 cells /uL 15-500 normal Not Available [facility] [place] [facility] [address], [place], [address], 11/25/2022 08:30:39 11/25/19 23 11/25/2022 CBC (INCL UDES DIFF/ PLT) absolute basophils 40 cells /uL 0-200 normal Not Available [facility] [place] [facility] [address], [place], [address], 11/25/2022 08:30:39 11/25/19 23 11/25/2022 CBC (INCL UDES DIFF/ PLT) neutrophils 50.8 % normal Not Available [facility] [place] [facility] [address], [place], [address], 11/25/2022 08:30:39 11/25/19 23 11/25/2022 CBC (INCL UDES DIFF/ PLT) lymphocytes 40.7 % normal Not Available [facility] [place] [facility] [address], [place], [address], 11/25/2022 08:30:39 11/25/19 23 11/25/2022 CBC (INCL UDES DIFF/ PLT) monocytes 5.5 % normal Not Available [facility] [place] [facility] [address], [place], [address], 11/25/2022 08:30:39 11/25/19 23 11/25/2022 CBC (INCL UDES DIFF/ PLT) eosinophils 2.5 % normal Not Available [facility] [place] [facility] [address], [place], [address], 11/25/2022 08:30:39 11/25/19 23 11/25/2022 CBC (INCL UDES DIFF/ PLT) basophils 0.5 % normal Not Available [facility] [place] [facility] [address] [place], [address], 11/25/2022 08:30:39 01/07/2001/08/2024 LIPID PANEL , STAND SARAH cholesterol, total 306 mg/dL <200 high Not Available [facility] [place] [facility] [address] [place], [address], 01/08/2024 08:01:45 01/07/2001/08/2024 LIPID PANEL , STAND SARAH HDL cholesterol 53 mg/dL > or = 50 normal Not Available [facility] [place] [facility] [address] [place], [address], 01/08/2024 08:01:45 01/07/2001/08/2024 LIPID PANEL , STAND SARAH triglyceride s 184 mg/dL <150 high Not Available [facility] [place] [facility] [address] [facility], [place], [address], 01/08/2024 08:01:45 01/07/2001/08/2024 LIPID PANEL , STAND [...] ture CV event s and morta lity. [facility] [...] 2061- 2068 ([email or web address] :[email or web address] com/f [email or web address] [email or web address]) Not Available [employer] - [facility] [address], [place], [address], 01/08/2024 08:01:45 01/07/20 24 01/08/2024 LIPID PANEL , STAND SARAH chol/HDLC ratio 5.8 (calc ) <5.0 high Not Available [facility] [place] [facility] [address], [place], [address], 01/08/2024 08:01:45 01/07/20 24 01/08/2024 LIPID PANEL [...] optio n. Not Available [facility] [address] [place], [address], 01/08/2024 08:01:45 01/07/2001/08/2024 COMPR EHENS JAYNE METAB OLIC PANEL glucose 97 mg/dL 65-99 normal Fasti ng refer ence inter andreea Not Available [facility] [address] [facility] [place], [address], 01/08/2024 08:01:47 01/07/2001/08/2024 COMPR EHENS JAYNE METAB OLIC PANEL urea nitrogen (BUN) 32 mg/dL 7-25 high Not Available [facility] [place] [facility] [address] [place], [address], 01/08/2024 08:01:47 01/07/2001/08/2024 COMPR EHENS JAYNE METAB OLIC PANEL creatinine 1.34 mg/dL 0.60-0 .95 high Not Available [facility] [address] [facility] [place], [address], 01/08/2024 08:01:47 01/07/20 24 01/08/2024 COMPR EHENS JAYNE METAB OLIC PANEL eGFR 38 mL/mi n/1.7 3m2 > or = 60 low Not Available [facility] [address] [facility] [place], [address], 01/08/2024 08:01:47 01/07/2001/08/2024 COMPR EHENS JAYNE METAB OLIC PANEL BUN/creatini ne ratio 24 (calc ) 6-22 high Not Available [facility] [address] [place], [address], 01/08/2024 08:01:47 01/07/2001/08/2024 COMPR EHENS JAYNE METAB OLIC PANEL sodium 143 mmol/ L 135-14 6 normal Not Available [facility] [address] [place], [address], 01/08/2024 08:01:47 01/07/2001/08/2024 COMPR EHENS JAYNE METAB OLIC PANEL potassium 3.8 mmol/ L 3.5-5. 3 normal Not Available [facility] [address] [facility] [place], [address], 01/08/2024 08:01:47 01/07/2001/08/2024 COMPR EHENS JAYNE METAB OLIC PANEL chloride 106 mmol/ L 98-110 normal Not Available [facility] [address] [facility] [place], [address], 01/08/2024 08:01:47 01/07/2001/08/2024 COMPR EHENS JAYNE METAB OLIC PANEL carbon dioxide 27 mmol/ L 20-32 normal Not Available [facility] [address] [place], [address], 01/08/2024 08:01:47 01/07/2001/08/2024 COMPR EHENS JAYNE METAB OLIC PANEL calcium 9.7 mg/dL 8.6-10 .4 normal Not Available [facility] [address] [place], [address], 01/08/2024 08:01:47 01/07/2001/08/2024 COMPR EHENS JAYNE METAB OLIC PANEL protein, total 7.0 g/dL 6.1-8. 1 normal Not Available [facility] [place] [facility] [address] [place], [address], 01/08/2024 08:01:47 01/07/2001/08/2024 COMPR EHENS JAYNE METAB OLIC PANEL albumin 4.3 g/dL 3.6-5. 1 normal Not Available [facility] [address], [place], [address], 01/08/2024 08:01:47 01/07/2001/08/2024 COMPR EHENS JAYNE METAB OLIC PANEL globulin 2.7 g/dL_ (calc ) 1.9-3. 7 normal Not Available [employer] [facility] [address], [place], [address], 01/08/2024 08:01:47 01/07/2001/08/2024 COMPR EHENS JAYNE METAB OLIC PANEL albumin/glob ulin ratio 1.6 (calc ) 1.0-2. 5 normal Not Available [facility] [address], [place], [address], 01/08/2024 08:01:47 01/07/2001/08/2024 COMPR EHENS JAYNE METAB OLIC PANEL bilirubin, total 0.6 mg/dL 0.2-1. 2 normal Not Available [facility] [address], [place], [address], 01/08/2024 08:01:47 01/07/2001/08/2024 COMPR EHENS JAYNE METAB OLIC PANEL alkaline phosphatase 82 U/L 37-153 normal Not Available [facility] [employer] [facility] [address], [place], [address], 01/08/2024 08:01:47 01/07/2001/08/2024 COMPR EHENS JAYNE METAB OLIC PANEL AST 14 U/L 10-35 normal Not Available [facility] [place] [facility] [address], [place], [address], 01/08/2024 08:01:47 01/07/2001/08/2024 COMPR EHENS JAYNE METAB OLIC PANEL ALT 5 U/L 6-29 low Not Available [facility] [place] [facility] [address], [place], [address], 01/08/2024 08:01:47 01/07/2001/08/2024 TSH TSH 7.72 mIU/L 0.40-4 .50 high Not Available [facility] [address], [place], [address], 01/08/2024 08:01:48 01/07/2001/08/2024 CBC (INCL UDES DIFF/ PLT) white blood cell count 6.8 thous and/u L 3.8-10 .8 normal Not Available [facility] [place] [facility] [address], [place], [address], 01/08/2024 08:01:48 01/07/2001/08/2024 CBC (INCL UDES DIFF/ PLT) red blood cell count 4.38 jojo on/uL 3.80-5 .10 normal Not Available [facility] [address], [place], [address], 01/08/2024 08:01:48 01/07/2001/08/2024 CBC (INCL UDES DIFF/ PLT) hemoglobin 12.9 g/dL 11.7-1 5.5 normal Not Available [facility] [address], [place], [address], 01/08/2024 08:01:48 01/07/2001/08/2024 CBC (INCL UDES DIFF/ PLT) hematocrit 40.1 % 35.0-4 5.0 normal Not Available [facility] [address] [facility] [facility], [place], [address], 01/08/2024 08:01:48 01/07/2001/08/2024 CBC (INCL UDES DIFF/ PLT) MCV 91.6 fL 80.0-1 00.0 normal Not Available [facility] [address] [facility], [place], [address], 01/08/2024 08:01:48 01/07/2001/08/2024 CBC (INCL UDES DIFF/ PLT) MCH 29.5 pg 27.0-3 3.0 normal Not Available [facility] [address] [facility] [place], [place], [address], 01/08/2024 08:01:48 01/07/2001/08/2024 CBC (INCL UDES DIFF/ [...] condi tion. Not Available [facility] [address] [facility], [place], [address], 01/08/2024 08:01:48 01/07/2001/08/2024 CBC (INCL UDES DIFF/ PLT) RDW 13.4 % 11.0-1 5.0 normal Not Available [facility] [place] [facility] [address], [place], [address], 01/08/2024 08:01:48 01/07/2001/08/2024 CBC (INCL UDES DIFF/ PLT) platelet count 241 thous and/u L 140-40 0 normal Not Available [facility] [address] [facility] [place], [address], 01/08/2024 08:01:48 01/07/2001/08/2024 CBC (INCL UDES DIFF/ PLT) MPV 9.7 fL 7.5-12 .5 normal Not Available [facility] [address] [facility] [place], [address], 01/08/2024 08:01:48 01/07/2001/08/2024 CBC (INCL UDES DIFF/ PLT) absolute neutrophils 4257 cells /uL 1500-7 800 normal Not Available [facility] [address] [facility] [place], [place], [address], 01/08/2024 08:01:48 01/07/2001/08/2024 CBC (INCL UDES DIFF/ PLT) absolute lymphocytes 1924 cells /uL 850-39 00 normal Not Available [facility] [address] [facility] [place], [address], 01/08/2024 08:01:48 01/07/2001/08/2024 CBC (INCL UDES DIFF/ PLT) absolute monocytes 428 cells /uL 200-95 0 normal Not Available [facility] [address] [place], [address], 01/08/2024 08:01:48 01/07/2001/08/2024 CBC (INCL UDES DIFF/ PLT) absolute eosinophils 143 cells /uL 15-500 normal Not Available [facility] [address] [place], [address], 01/08/2024 08:01:48 01/07/20 24 01/08/2024 CBC (INCL UDES DIFF/ PLT) absolute basophils 48 cells /uL 0-200 normal Not Available [facility] [address], [place], [address], 01/08/2024 08:01:48 01/07/2001/08/2024 CBC (INCL UDES DIFF/ PLT) neutrophils 62.6 % normal Not Available [facility] [address] [facility] [place], [place], [address], 01/08/2024 08:01:48 01/07/2001/08/2024 CBC (INCL UDES DIFF/ PLT) lymphocytes 28.3 % normal Not Available [facility] [address] [facility] [place], [place], [address], 01/08/2024 08:01:48 01/07/2001/08/2024 CBC (INCL UDES DIFF/ PLT) monocytes 6.3 % normal Not Available [facility] [place] [facility] [facility] [address] [facility], [place], [address], 01/08/2024 08:01:48 01/07/2001/08/2024 CBC (INCL UDES DIFF/ PLT) eosinophils 2.1 % normal Not Available [facility] [place] [facility] [facility] [address], [place], [address], 01/08/2024 08:01:48 01/07/2001/08/2024 CBC (INCL UDES DIFF/ PLT) basophils 0.7 % normal Not Available [facility] [place] [facility] [address] [facility], [place], [address], 01/08/2024 08:01:48 10/12/1910/11/2024 CT, head + brain , w/o contr ast No observ ation record ed. [email or web address] [address], [place], [address], 10/17/2024 08:06:17 10/12/19 25 10/11/2024 CT, hip + pelvi s, w/o contr ast No observ ation record ed. [facility] [address], [place], [address], 10/17/2024 08:07:21 10/12/1910/11/2024 CT, cervi camilla spine , w/o contr ast No observ ation record ed. [facility] [address], [place], [address], 10/17/2024 08:07:58 Result Notes None recorded. Problems Name Problem SNOMED Code Status Onset Date Resolution Date Notes Provider Name and Address Organization Details Recorded Time Dermatophytosi s of the body Active Kathy Torres MD [address] [address], [place] [facility] 6 11:43:57 Colitis, enteritis and gastroenteriti s presumed infectious 400390918 Active Kathy Torres MD [address] [address], [place] [facility] 6 11:43:57 Gastroesophage al reflux disease 070688448 Active Kathy Torres MD [address] [address], [place] [facility] 6 11:43:57 Cellulitis and abscess of buttock 245018092 Active Kathy Torres MD [address] [address], [place] [facility] 6 11:43:57 Right lower quadrant pain 643275085 Arnold Torres MD [address] [address], [facility] 6 11:43:57 Urinary tract infectious disease 83056667 Arnold Torres MD [address] [id number], [facility] 6 11:43:57 Benign essential hypertension [id number] Arnold Torres MD [address] [address], [place] - [facility] 6 21:31:44 Contusion of foot 11758270 Active Kathy Torres MD [address] [address], [place] - [facility] 6 11:43:57 Disorder of urinary tract 77463772 Arnold Torres MD [address] [address], [place] [facility] 6 11:43:57 Hypo-osmolalit y and or hyponatremia 331521078 Arnold Torres MD [address] [address], [place] [facility] 6 11:43:57 Abscess of Bartholin's gland 17140037 Arnold Torres MD [address] [address], [place] [facility] 6 11:43:57 Adverse reaction to drug [id number] Arnold Torres MD [address] [address], [place] [facility] 6 11:43:57 Abdominal pain 03875388 Arnold Torres MD [address] [address], [place] [facility] 6 11:43:57 Candidiasis [id number] Arnold Torres MD [address] [address], [facility] 6 11:43:57 Chest pain 75931200 Arnold Torres MD [address] [address], [place] [facility] 6 11:43:57 Edema 825531352 Arnold Torres MD [address] [address], [place] [facility] 6 11:43:57 Hyperlipidemia 36360828 Arnold Torres MD [address] [address], [facility] 21:31:44 Diseases of mitral and aortic valves [id number] Arnold Torres MD [address] [address], [facility] 6 11:43:57 Acute bronchitis [id number] Arnold Torres MD [address] [address], [facility] 6 11:43:57 Malaise and fatigue 772869362 Arnold Torres MD [address] [address], [facility] 6 11:43:57 Disorder of foot [id number] Arnold Torres MD [address] [address], [facility] 6 11:43:57 Cellulitis of leg, excluding foot 843482057 Arnold Torres MD [address] [address], [facility] 6 11:43:57 Pelvic mass 90312095 Arnold Torres MD [address] [address], [place] [facility] 6 11:43:57 Osteoarthritis of wrist 933479762 Arnold Torres MD [address] [address], [place] [facility] 6 11:43:57 Strain of muscle and/or tendon of wrist Active Kathy Torres MD [address] [address], [place] [facility] 6 11:43:57 Strain of muscle and/or tendon of hand Active Kathy Torres MD [address] [address], [facility] 6 11:43:57 Superficial injury of hand 961954772 Arnold Torres MD [address] [address], [facility] 6 11:43:57 Pain of joint of wrist 255445400 Arnold Torres MD [address] [address], [facility] 6 11:43:57 Infection of skin and/or subcutaneous tissue [id number] Arnold Torres MD [address] [address], [facility] 6 11:43:57 Edema of foot 515917414 Arnold Torres MD [address] [address], [facility] 6 11:43:57 Staphylococcal infectious disease 60154809 Arnold Torres MD [address] [address], [place] - [facility] 6 11:43:57 Hand eczema 123677169 Active Kathy Torres MD [address] [address], [place] - [facility] 6 11:43:57 Colitis 56673143 Active Kathy Torres MD [address] [address], [facility] - [facility] 6 11:43:57 Generalized osteoarthritis 590495871 Active Kathy Torres MD [address] [address], [facility] 6 11:43:57 Osteoarthritis of joint of hand 27524730 Active Kathy Torres MD [address] [address], [facility] - [facility] 6 21:31:44 Osteoarthritis 171272704 Active Kathy Torres MD [address] [address], [place] - [facility] 6 21:31:44 Atrial fibrillation 47946639 Active 2017 Kathy Torres MD [address] [address], [place] - [facility] 8 16:39:20 Problem Notes None recorded. Procedures Surgical History Date Name Laterality Status Provider Name and Address Organization Details Recorded Time 02/11/20 17 Cardiac Surgery completed Kathy Torres MD [address], [address] [place] [address], [place] [facility] 03/05/2017 20:35:42 07/11/19 17 Cardiac Surgery completed Kathy Torres MD 2016 [facility], [place], [address], [place] [facility] 03/05/2017 20:36:51 03/30/19 14 Other completed Kathy Torres MD [address] [address], [place], [address], [place] [facility] 11/11/2013 11:22:16 08/08/19 12 Colonoscopy completed Jud [facility] 05/03/2013 11:06:47 03/30/19 11 Other completed [facility] 03/03/2011 11:50:52 03/30/18 80 Hysterectomy completed [facility] 03/03/2011 11:50:52 03/30/18 54 Removal of ovarian cyst(s) completed [facility] 03/03/2011 11:50:52 03/30/18 49 Appendectomy completed [facility] 03/03/2011 11:50:52 Breast Surgery completed Kathy Torres MD [address] [address], [place], [address], [facility] 03/03/2011 13:09:30 Imaging Results None recorded. Procedure Notes None recorded. Medical Equipment None Reported. Allergies Allergen ID Allergen Name Allergen Category Reaction Reaction Severity Criticality Documentation Date Start Date Code Code System Note Provider Name and Address Organization Details Recorded Time 57162 Cipro medicatio n itching Not available Not available 02/05/2012 3 RxNorm Kathy Torres MD [address] [facility], [place], [address] , [place] [facility] 2 20:43:40 4782 Zocor medicatio n other mild Not available 03/03/2011 3 RxNorm GI upset --ALL MILAGROS STERO L [facility] [facility] 1 11:50:52 Medications Name Sig Start Date Stop Date Status Note LastModified by Organization Details LastModified Time aspirin low dose 81mg ec 1 PO daily 07/28 completed Not Available Not Available Not Available nasal decongest ant spray 02/10 completed Not Available Not Available Not Available eye care vitamins active Not Available Not Available Not Available melatonin 5 mg occasion ally 08/07 completed Not Available Not Available Not Available eye drop cup with guide active Not Available Not Available Not Available triple [...] lable prednisol one acetate 1 % eye drops,henry pension 08/07 completed Not Available Not Available Not [...] completed Not Available Not Available Not Available Ambien prior to sleep study on 03/17 completed Not Available Not Available Not Available [employer]-1000 active Not Available Not Available Not [...] Updated DateTime 3 160.02 cm 24.5 kg/m2 69661.1 5 g 110 /min 96 % 96 % 98.1 [degF] 136/80 mm[Hg] [facility] 3 14:37:19 Date Recorded Body height Body mass index (BMI) Body weight Heart rate Oxygen saturation Oxygen saturation in Arterial blood by Pulse oximetry Body temperature Systolic And Diastolic Provider Name and Address Organization Details Last Updated DateTime 5 160.02 cm 22.4 kg/m2 62164.0 4 g 51 /min 96 % 96 % 98.2 [degF] 119/63 mm[Hg] [facility] 5 14:30:15 Date Recorded Body height Body weight Heart rate Oxygen saturation Oxygen saturation in Arterial blood by Pulse oximetry Body temperature Systolic And Diastolic Provider Name and Address Organization Details Last Updated DateTime 3 160.02 cm 46977.7 8 g 75 /min 96 % 96 % 98.2 [degF] 133/73 mm[Hg] [facility] 3 13:38:11 Date Recorded Body height Body mass index (BMI) Body weight Heart rate Oxygen saturation Oxygen saturation in Arterial blood by Pulse oximetry Body temperature Systolic And Diastolic Provider Name and Address Organization Details Last Updated DateTime 4 160.02 cm 24.1 kg/m2 00668.2 6 g 53 /min 97 % 97 % 97.3 [degF] 130/81 mm[Hg] [facility] 4 13:46:16 Date Recorded Body height Body mass index (BMI) Body weight Heart rate Oxygen saturation Oxygen saturation in Arterial blood by Pulse oximetry Body temperature Systolic And Diastolic Provider Name and Address Organization Details Last Updated DateTime 2 160.02 cm 24.5 kg/m2 78822.8 5 g 83 /min 95 % 95 % 97.7 [degF] 155/92 mm[Hg] [facility] 2 15:55:10 Social History Question Answer Notes LastModified by Organizat ion Details LastModified Time Tobacco Smoking Status Never Smoker Not Available [facility] 01/24/2020 03:11:20 Do You Have An Advance Directive? Yes [id number] Information not available 01/24/2020 Animal Exposure? No Informat ion not available 03/03/2011 Auto Related Injury? No Information not available 03/03/2011 Is Blood Transfusion Acceptable In An Emergency? No Information not available 12/06/2022 What Is Your Level Of Caffeine Consumption? Occasional [id number] Information not available 01/24/2020 How Much Tobacco Do You Chew? None [id number] Information not available 01/24/2020 What Is Your Code Status? DNR Information not available 12/06/2022 Diabetes No Information no t available 03/03/2011 What Type Of Diet Are You Following? SPECIFIC Watches Sodium And Fat Intake [id number] Information not available 01/24/2020 Which Illicit Or Recreational Drugs Have You Used? None [id number] Information not available 01/24/2020 Education 2 Year College Informatio n not available 03/03/2011 What Is The Highest Grade Or Level Of School You Have Completed Or The Highest Degree You Have Received? [id number] Information not available 09/12/2021 Family History Of Heart Disease? No Information not available 03/03/2011 Which Of Your Hands Is Dominant? Right [id number] Information not available 01/24/2020 High Blood Pressure Yes Information not available 03/03/2011 High Cholesterol Yes Informat ion not available 03/03/2011 Live Alone Or With Others? With Others Information not available 03/03/2011 Marital Status Informatio n not available 03/03/2011 What Was The Date Of Your Most Recent Tobacco Screening? 01/14/2024 Information not available 01/14/2024 How Many Children Do You Have? 3 [id number] Information not available 01/24/2020 What Is Your Relationship Status? Information not available 09/12/2021 Seat Belts Used Routinely Yes Information not available 05/05/2013 Smoke Alarm In Home Yes Information not available 05/05/2013 Are You Passively Exposed To Smoke? No Information not available 03/03/2011 General Stress Level Medium Information not available 03/03/2011 Do You Use Sunscreen Routinely? No [id number] Information not available 01/24/2020 Work Related Injury? No Information not available 05/05/2013 Sex: Unknown Functional Status Question Answer Note LastModified by Organizat ion Details LastModified Time What is your level of alcohol consumption? None [id number] Information not available 01/24/2020 Are you currently employed? No [id number] Information not available 01/24/2020 Are you able to care for yourself? 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 Moderate walking [id number] Information not available 01/24/2020 Mental Status None recorded. Family History Relationship Description Onset Age of this Age Resolved Age Notes LastModified by Organization Details LastModified Time Mother Malignant neoplastic disease 69 brain (previ ously record ed as Cancer ) Not available 03/08/2015 12:16:02 Father Malignant neoplastic disease 78 colon (previ ously record ed as Cancer ) Not available 03/08/2015 12:16:02 Notes:7 siblings and 4 in childhood; 3 living and are ok(2 sisters and 1 brother and older sister had CABG) Medical History Condition Response Coronary Artery Disease N Gout N Blood Diseases N Kidney Stones N Hyperthyroidism N Depression N COPD N Hypothyroidism N Developmental or Behavioral Disorders N Eczema, [...] Disease N Pulmonary Embolism N Hypertension Y Chicken Pox N Osteoporosis N Gynecological HistoryNo gynecological history recorded. Obstetrics History GPAL:G 0 P 0 0 0 0 Immunizations Vaccine Type Date Status Note Provider Nam e and Address Organization Details Recorded Time DTaP, 5 pertussis antigens 4 completed Kathy Torres MD [address], [address], [facility] 11/11/2013 11:20:04 Pneumococcal conjugate PCV 13 5 completed [facility] 10/10/2014 11:25:29 Influenza, high-dose, quadrivalent, PF 3 completed Kathy Torres MD [address] [facility], [place], [address], [facility] 12/06/2022 23:05:47 zoster live 5 completed Not Available [facility] 04/30/2019 02:12:32 Influenza, high-dose, trivalent, PF 4 completed Kathy Torres MD [address] [address], [place], [address], [facility] 01/14/2024 23:12:52 COVID-19, mRNA, LNP-S, PF, 100 mcg/0.5mL dose or 50 mcg/0.25mL dose 1 completed [facility] 08/09/2020 15:10:31 COVID-19, mRNA, LNP-S, PF, 100 mcg/0.5mL dose or 50 mcg/0.25mL dose 1 completed [facility] 08/09/2020 15:10:36 COVID-19, mRNA, LNP-S, PF, 30 mcg/0.3 mL dose 1 completed [facility] 09/12/2021 14:44:05 Influenza, high-dose, trivalent, PF 1 completed [facility] 09/12/2021 14:44:28 Influenza, high-dose, quadrivalent, PF 2 completed Kathy Torres MD [address] [address], [place], [address], [facility] 03/03/2022 16:18:19 pneumococcal polysaccharide PPV23 2 completed Not Available [facility] 04/16/2019 02:12:10 Past Encounters Encounter ID Performer Location Encounter Start Date Encounter Closed Date Diagnosis/Indication Diagnosis SNOMED-CT Code Diagnosis ICD10 Code Diagnosis Note [id number] Kathy Torres MD [facility] [address] [place] [address] 75028-047 7 03/03/2011 10:48:20 03/03/2011 15:59:06 [id number] Kathy Torres MD [facility] [address] [place] [address] [id number] 7 05/26/2011 14:03:07 05/26/2011 17:06:42 [id number] Kathy Torres MD [address] 52633-942 7 05/29/2011 13:47:43 05/29/2011 15:29:44 [id number] Kathy Torres MD [address] 69058-261 7 06/12/2011 10:10:48 06/12/2011 12:00:36 [id number] Kathy Torres MD [address] 62368-786 7 06/17/2011 10:47:24 06/17/2011 15:05:14 [id number] Kathy Torres MD [place] [id number] 7 07/04/2011 10:44:50 07/04/2011 16:04:34 [id number] Kathy Torres MD [address] 30822-369 7 08/07/2011 10:55:46 08/07/2011 16:36:44 [id number] Kathy Torres MD [address] 64189-616 7 08/14/2011 11:18:43 08/14/2011 14:39:06 [id number] Kathy Torres MD [address] [id number] 7 02/02/2012 09:41:57 02/02/2012 16:38:08 [id number] Kathy Torres MD [address] 54528-870 7 02/27/2012 15:20:26 03/03/2012 09:15:56 [id number] Kathy Torres MD [address] [id number] 7 03/19/2012 14:53:25 03/19/2012 17:04:47 [id number] Kathy Torres MD [address] 83230-974 7 04/05/2012 11:24:06 04/05/2012 17:22:42 [id number] Kathy Torres MD [address] 90348-636 7 06/03/2012 08:33:04 06/03/2012 17:19:49 [id number] Kathy Torres MD [place] [address] 7 09/20/2012 09:43:12 09/20/2012 16:46:38 [id number] Kathy Torres MD [place] [address] 7 11/01/2012 10:11:02 11/01/2012 12:14:54 [id number] Kathy Torres MD [place] [address] 7 11/19/2012 14:49:27 11/19/2012 16:31:50 [id number] Kathy Torres MD [place] [address] 7 03/03/2013 09:43:41 03/03/2013 11:59:46 Hypo-osmolality and or hyponatremia 863401881 Disorder of foot 905443576 Benign ess ential hypertension 5856810 Hyperlipidemia 40417523 [id number] Kathy Torres MD [place] [address] 7 05/05/2013 14:14:35 05/05/2013 15:39:23 Benign essential hypertension 8488307 Edema 183350058 Hyperlipidemia 02285157 Gastroesop hageal reflux disease 720282285 [id number] Kathy Torres MD [place] [address] 7 08/25/2013 14:54:52 08/25/2013 16:51:17 Osteoarthritis of wrist 394736778 Strain of muscle and/or tendon of wrist 640168264 Strain of muscle and/or tendon of hand 212499495 Superficia l injury of hand 672736364 Benign ess ential hypertension 2197642 [id number] Kathy Torres MD [address] 51596-741 7 11/11/2013 09:54:24 11/11/2013 17:22:05 Adult health examination 761594829 Hyperlipidemia 81828384 Gastroesop hageal reflux disease 868938425 Benign ess ential hypertension 7845917 Pain of luis int of wrist 021024406 [id number] Kathy Torres MD [address] 06991-404 7 02/03/2014 14:17:59 02/03/2014 16:48:15 Infection of skin and/or subcutaneous tissue 36542052 Benign ess ential hypertension 6967265 Disorder o f urinary tract 37131784 Gastroesop hageal reflux disease 202960209 Hyperlipidemia 21727118 [id number] Kathy Torres MD [place] [address] 7 10/10/2014 09:53:57 10/10/2014 11:47:29 Benign essential hypertension 8422448 Edema of foot 137841585 Staphyloco ccal infectious disease 48205433 [id number] Kathy Torres MD [place] [id number] 7 01/22/2015 15:07:02 01/24/2015 08:58:53 Adult health examination 832783296 Z00.01 Hand eczema 447856056 L3 0.9 Benign ess ential hypertension 4259226 I10 Gastroesop hageal reflux disease 271596595 K21.9 Edema of foot 732557479 R60.0 Urinary tr act infectious disease 57441904 N39.0 Hyperlipidemia 94916333 E78.5 [id number] Kathy Torres MD [facility] [address] 49775-988 7 01/26/2015 15:08:59 01/26/2015 16:58:04 Colitis 32401261 K52.9 [id number] Kathy Torres MD [address] 65496-467 7 03/08/2015 11:14:21 03/09/2015 10:58:54 Edema of foot 127399335 R60.0 Benign ess ential hypertension 8894279 I10 Screening for cancer 158 46626 Z12.11 Generalize d osteoarthritis 604581437 M15.9 [id number] Kathy Torres MD [facility] [address] 11248-389 7 05/31/2015 10:13:04 06/01/2015 08:01:24 Osteoarthritis of joint of hand 79651720 M19.049 Osteoarthritis 892095298 M19.90 Benign ess ential hypertension 4319399 I10 Hyperlipidemia 02711366 E78.5 [id number] Kathy Torres MD [facility] [address] [place] [address] [id number] 7 12/10/2015 15:12:55 12/11/2015 08:57:13 Candidiasis of skin 53274991 B37.2 Disorder o f skin and/or subcutaneous tissue 60883525 L98.9 Sciatica 63831310 M54.31 [id number] Kathy Torres MD [facility] [address] 91285-717 7 02/11/2016 09:45:22 02/13/2016 08:36:16 Adult health examination 036842327 Z00.01 Body mass index 25-29 - overweight 930224532 Z68.25 At low risk for fall 439 718253 Z91.81 Screening for osteoporosis 154065036 Z13.820 Cellulitis of finger 275 07305 L03.011 Paronychia of finger 444 169415 L03.019 Essential hypertension 64086522 I10 Hyperlipidemia 65328257 E78.5 [id number] Kathy Torres MD [facility] [address] 24533-509 7 05/15/2016 10:46:50 05/15/2016 16:16:47 Hand eczema 336640486 L30.9 Hyperlipidemia 08439745 E78.5 Body mass index 25-29 - overweight 159832255 Z68.25 [id number] Kathy Torres MD [facility] [address] 02507-248 7 06/09/2016 09:46:10 06/09/2016 10:53:10 Tachycardia 5266044 R00.0 Atypical chest pain 1025 98299 R07.89 Essential hypertension 84695984 I10 [id number] Kathy Torres MD [facility] [address] [id number] 7 10/27/2016 08:45:51 10/28/2016 08:38:40 Essential hypertension 04374419 I10 Hyperlipidemia 42129691 E78.5 Paroxysmal atrial fibrillation 906518612 I48.0 Anticoagulant therapy 18 5473419 Z79.01 Obstructiv e sleep apnea syndrome 43408375 G47.33 She started this over a month ago per Dr Bonilla. She also reportedly had a carotid study as well. Body mass index 25-29 - overweight 079310704 Z68.26 [id number] Kathy Torres MD [facility] [address] [place] [id number] 7 03/05/2017 11:15:01 03/06/2017 08:16:08 Adult health examination 824356926 Z00.01 Contusion of face 866329 004 S00.83XA Essential hypertension 78073477 I10 Hyperlipidemia 46991490 E78.5 Depression screening 171 498045 Z13.89 Paroxysmal atrial fibrillation 428944436 I48.0 Anticoagulant therapy 18 5810770 Z79.01 Body mass index 25-29 - overweight 321115382 Z68.26 At low risk for fall 439 844803 Z91.81 Hand eczema 040163871 L3 0.9 Cardiac pa cemaker in situ 020902237 Z95.0 History of migraine 1614 80482 Z86.69 [id number] Kathy Torres MD [facility] [place] [address] 7 07/30/2017 09:24:44 07/31/2017 08:21:36 Dyspnea on exertion 99241788 R06.09 Atrial fibrillation 4943 6004 I48.91 Acute bronchitis 5339472 2 J20.9 Cardiac pa cemaker in situ 148423095 Z95.0 [id number] Kathy Torres MD [facility] [address] [place] [address] 18743-325 7 08/10/2017 15:59:16 08/11/2017 08:26:18 Spontaneous ecchymosis 051029523 R23.3 Anticoagulant therapy 18 9614426 Z79.01 Atrial fibrillation 4943 6004 I48.91 [id number] Kathy Torres MD [facility] [address] [place] [address] 94988-198 7 09/17/2017 10:55:50 09/18/2017 08:52:16 Congestive heart failure 43583350 I50.9 Atrial fibrillation 4943 6004 I48.91 Edema of l ower extremity 534315235 R60.0 Cardiac pa cemaker in situ 004566448 Z95.0 Essential hypertension 34249222 I10 [id number] Kathy Torres MD [facility] [address] 30684-792 7 11/02/2017 15:50:57 11/03/2017 08:32:39 Boil of face (excluding eye) 668911307 L02.02 Burn 323013515 T30.0 Insomnia 352641152 G47.0 0 [id number] Kathy Torres MD [place] [address] 7 02/09/2018 13:28:16 02/11/2018 08:58:52 Fall W19.XXXA Contusion of face 762627 004 S00.83XA Contusion of right hand 9522769008 2476839 S60.221A [id number] Kathy Torres MD [place] [id number] 7 03/09/2018 10:16:54 03/11/2018 08:37:25 Adult health examination 110883263 Z00.01 Hypothyroidism 01043105 E03.9 Contusion of face 481787 004 S00.83XA Essential hypertension 60585434 I10 Hyperlipidemia 11044661 E78.5 Depression screening 171 974742 Z13.89 Paroxysmal atrial fibrillation 021699309 I48.0 Anticoagulant therapy 18 7601476 Z79.01 At low risk for fall 439 491459 Z91.81 Hand eczema 218204395 L3 0.9 Cardiac pa cemaker in situ 375720836 Z95.0 History of migraine 1614 43724 Z86.69 Body mass index 20-24 - normal 914485273 Z68.24 [id number] Kathy Torres MD [address] 38079-308 7 04/02/2018 09:31:53 04/02/2018 11:09:04 Abscess of vulva 63791360 N76.4 Hypothyroidism 68069036 E03.9 [id number] Kathy Torres MD [facility] [address] 55408-205 7 08/02/2018 14:49:17 08/04/2018 08:31:58 Gastro-esophageal reflux disease with esophagitis 870732267 K21.0 Chronic at rial fibrillation 963201311 I48.2 Adverse re action to drug 17913291 T50.905S Anticoagulant therapy 18 3720684 Z79.01 Benign ess ential hypertension 6364870 I10 Liver func tion tests outside reference range 493074203 R94.5 [id number] Kathy Torres MD [facility] [address] [place] [address] [id number] 7 09/09/2018 13:26:24 09/10/2018 08:10:11 Essential hypertension 05868332 I10 Unintentio nal weight loss 200810663 R63.4 Recurrent falls 52122453 2 R29.6 Body mass index 20-24 - normal 430298735 Z68.20 [id number] Kathy Torres MD [facility] [address] [place] [address] 63357-088 7 08/08/2019 13:37:25 08/09/2019 08:10:02 Adult health examination 303903920 Z00.01 Hypothyroidism 47140870 E03.9 Essential hypertension 62696237 I10 Hyperlipidemia 63573726 E78.5 Depression screening 171 214250 Z13.89 Paroxysmal atrial fibrillation 962245979 I48.0 Anticoagulant therapy 18 5600913 Z79.01 At low risk for fall 439 200365 Z91.81 Cardiac pa cemaker in situ 229257258 Z95.0 History of migraine 1614 25605 Z86.69 Trigger fi nger of right hand 6589753492 8573414 M65.30 right ring finger catching and bothering her Body mass index less than 20 284320137 Z68.1 Unintentio nal weight loss 559927276 R63.4 [id number] Kathy Torres MD [facility] [address] 62424-474 7 08/09/2020 14:36:13 08/10/2020 08:04:28 Adult health examination 247854710 Z00.01 Essential hypertension 96929858 I10 Hyperlipidemia 92829088 E78.5 Depression screening 171 755719 Z13.89 Paroxysmal atrial fibrillation 929298338 I48.0 Anticoagulant therapy 18 4447960 Z79.01 At low risk for fall 439 213631 Z91.81 Cardiac pa cemaker in situ 020319684 Z95.0 History of migraine 1614 62546 Z86.69 Mild memor y disturbance 960792669 R41.3 [id number] Kathy Torres MD [facility] [address] 86155-084 7 09/12/2021 13:31:47 09/13/2021 08:18:22 Adult health examination 178164714 Z00.01 Essential hypertension 97311949 I10 Hyperlipidemia 48695480 E78.5 Depression screening 171 981475 Z13.89 Paroxysmal atrial fibrillation 302975149 I48.0 Anticoagulant therapy 18 9200726 Z79.01 At low risk for fall 439 276526 Z91.81 Cardiac pa cemaker in situ 773556919 Z95.0 History of migraine 1614 20923 Z86.69 Mild memor y disturbance 669470523 R41.3 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 [id number] Kathy Torres MD [facility] [address] 64618-154 7 03/03/2022 15:20:27 03/04/2022 10:02:59 Chronic blepharitis 59771606 H01.009 Hypothyroidism 06838366 E03.9 Essential hypertension 66586325 I10 Fatigue 18160297 R53.83 [id number] Kathy Torres MD [facility] [address] [place] [address] 86492-803 7 05/05/2022 14:05:14 05/06/2022 09:15:41 Diarrhea 98394204 R19.7 Lower abdominal pain 545 16198 R10.30 [id number] Kathy Torres MD [facility] [address] 70990-583 7 12/04/2022 13:28:55 12/08/2022 08:29:54 Administration of influenza vaccine 17743923 Z23 Adult heal th examination 247420669 Z00.01 Essential hypertension 28178217 I10 Hyperlipidemia 17030309 E78.5 Depression screening 171 502316 Z13.89 Paroxysmal atrial fibrillation 560522960 I48.0 Anticoagulant therapy 18 7285210 Z79.01 At low risk for fall 439 702300 Z91.81 Cardiac pa cemaker in situ 165061022 Z95.0 History of migraine 1614 00353 Z86.69 Mild memor y disturbance 668017362 R41.3 Degenerati ve disorder of macula 731357681 H35.30 HMG COA re ductase inhibitor adverse reaction 294373553 T46.6X5S Advance di rective discussed with patient 805284060 Z71.89 [id number] Kathy Torres MD [facility] [address] 41925-094 7 01/14/2024 13:30:29 01/15/2024 08:50:14 Administration of influenza vaccine 96061199 Z23 Adult heal th examination 744691249 Z00.01 Essential hypertension 95385604 I10 Hyperlipidemia 84023211 E78.5 Depression screening 171 764306 Z13.89 Paroxysmal atrial fibrillation 007533797 I48.0 Anticoagulant therapy 18 4407165 Z79.01 At low risk for fall 439 550804 Z91.81 Cardiac pa cemaker in situ 104663112 Z95.0 History of migraine 1614 38315 Z86.69 Degenerati ve disorder of macula 629774880 H35.30 HMG COA re ductase inhibitor adverse reaction 116321420 T46.6X5S Advance di rective discussed with patient 002853398 Z71.89 Candidiasis of skin 4988 3006 B37.2 Memory impairment 098203 006 R41.3 [id number] Kathy Torres MD [facility] [address] [place] 6159761-116 7 07/28/2024 14:29:02 07/28/2024 15:10:51 Infection of skin 765669095 L08.9 Candidiasis of skin 4988 3006 B37.2 Health Concerns Section Related Observation LastModified by Organization Detai ls LastModified Time None Recorded Concern Status LastModified by Organization Details LastModified Time None Recorded Advance Directives Directive Y: Payers Insurance Date Sequence Insurance Name Policy Number Policy King Covered Member ID King Member ID Guarantor Name 01/14/2024 1 [place] Ketty Banerjee [id number] Ketty Banerjee 01/14/2024 2 [employer] - PLAN G (MEDICARE SUPPLEMENT) [employer] Ketty Cooker [id number] Ketty Banerjee 07/28/2024 1 [employer] (MEDICARE REPLACEMENT/AD VANTAGE - PPO) [id number] Ketty Cooker [id number] Ketty Banerjee Notes Date Note Type Note Provider Name and Address Organization Details Recorded Time 03/03/2022 text/html Recurrent irritation around both eyes and has had this issue before treated with topical antibiotics. Kathy Torres MD [address] [facility], [facility], [place], [address], [employer] [employer] 03/03/2022 22:44:35 05/05/2022 text/html [...] on that today. Kathy Torres MD [address] [facility], [place] [address], [place], [address], [facility] 05/05/2022 21:24:26 12/04/2022 text/html daughter advises [...] Dr. Delatorre tomorrow. Kathy Torres MD [address] [facility], [facility], [place], [address], [facility] 12/06/2022 23:07:43 01/14/2024 text/html she loves Kit Farida and cookies. Kathy Torres MD [address] [facility], [facility], [place], [address], [facility] 01/14/2024 23:53:56 07/28/2024 text/html Family has noticed a tender swelling on the left side of the face in front of the ear. 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 She continues to have issues with candidiasis under the breasts and in the navel area with the staph. Kathy Torres MD [address] [facility], [address], [place], [address], [facility] 07/28/2024 14:58:37 OBGyn Episode No OBEpisode recorded.
--- OUTSIDE RECORDS SUMMARY | 2024-10-19 12:45 | XMS_ITS | Encounter Summary ---
Author Organization [facility] yste Address [address] [place] [address] Care Team Providers Care Antique Collector Name Role Phone Kathy Torres MD Primary Care Provider + Encounter Details Date Type Department Care Team (Late st Contact Info) Description 06/24/2012 Conversion Encounter [facility] HISTORICAL CONV [address] [place] [address] Interface, See Report Social History Tobacco Use Types Packs/Day Years Used Date Smoking Tobacco: Never Assessed Comments Unknown Sex and Gender Information Value Date Recorded Sex Assigned at Not on file Legal Sex Female 1:30 PM EDT Gender Identity Not on file Sexual Orientation Not on file documented as of this encounter Consult Notes * Interface, See Report - 06/24/2012 12:00 AM EDT [facility] [address] [place], [place] [address] [phone] Patient: DINORA NUGENT MR #: : [id number] Date of Visit: 06/24/2012 Attending Physician: Keyshawn Leach Dictated By: KEYSHAWN LEACH Referring Physician: Sowmya De Jesus PCP: Kathy Torres Diagnosis: SACROCOLPOPEXY Allergies: ZOCOR History of present illness: NOCTURIA, BULGE, SOME HESITANCY, H/O PARTIAL HYSTERECTOMY FOR AUB UNCONTROLLED WITH HRT, SACROCOLPOPEXY Patient is a very pleasant 76 year old woman wit h complaints of vaginal buldge. She notes no protrusion at the vagina, but can feel the buldge when she wipes after toilet. She complains of low back pain that gets worse as the day goes on, but also notes of disk problem x many years. She is worrieda bout incomplete emptying and rarely has stree urinary incontinence. She has nocturia 1-2/ night and only then has urinary urge incontinence. Past family and/or social history: Family history: Mother - Brain CA. Father - Colon CA IN HIS LATE 60'S, Grandfather(s) - Hypertension. Social history: Tobacco Y N PPD ETOH Y N # Drinks Marital Status Occupation HOMEMAKER; [employer] Past medical history: Medical: HYPERTENSION; HEART DISEASE; H/O OVARIAN CYST; TINIITIS; ARTHRITIS; CARPAL TUNNEL; FIBROMYALGIA; MIGRAINE; LT BREAST OBOCYSTIC DISEASE ; likely CHF Surgical: PARTIAL HYSTERECTOMY; BLADDER SURGERY; APPENDECTOMY; LAPAROSCOPY FOR CYST TO OUTSIDE OF COLON,; CATARACT; ROTATOR CUFF; SHOULDER, LEFT OVARIAN CYST, LEFT BREAST X2, BLADDER tack Health maintenance: Mammogram: 07/29/11 Colonoscopy: 10/29/11 Pap smear: 03/30/07 Tumor Marker: CT Scan: BMD: Review of systems: Constitutional: No change in weight, no excessive fatigue. Psychiatric: + INSOMNIA, No history of anxiety, depression, bipolar disorder. Eyes: + GLASSES, + DRY, ITCHY EYES, Vision unchanged Ears, Nose, Mouth, Throat: + PARTIALS, Hearing normal, no swallowing difficulties, no sore throat Endocrine: No history of diabetes, thyroid disease, heat/cold intolerance Lymphatic: No enlarged lymph nodes Respiratory: + SOB WITH CLIMBING, No shortness of breath, cough, asthma, wheezing Cardiovascular: +HTN; HEART DISEASE. + BLE SWELLING, No angina, orthopnea, edema, murmur, hyperlipidemia Gastrointestinal: No constipation or diarrhea, no reflux, nausea, or vomiting Genitourinary: + NOCTURIA, FREQUENCY, HESITANCY, No dysuria, hematuria, urgency, or frequency Neurologic: +FIBROMYALGIA; +MIGRAINES. + NUMBNESS AND TINGLING TO LANCE ARMS, weakness, syncope, seizures Musculoskeletal: +ARTHRITIS; +TINITIS; +CARPAL TUNNEL. No muscle weakness, or joint pain Integumentary: +LT BR OBOCYSTIC DISEASE. + LEFT BREAST PAIN, CHRONIC; skin lesion - at umbilicus; has been red for a while, treating with antifungal without response Gynecologic: +H/O OV CYST. No abnormal bleeding, vaginal discharge, pelvic pain, of h/o abnml pap smears LMP: P: 3 Vag Deliveries: 3 C-sec: Misc: Hematologic: Medications: See documented medication list. Physical exam: Constitutional: Weight 149 Height 63 [place] [address] Pulse Temp Neurological/Psychiatric: HEENT: Neck: Respiratory: Cardiovascular: Breasts: Gastrointestinal: Lymphatic: Extremities: 1+ BLE edema, Bilateral hand edema Skin: Umbilicus with erythema; chronic irritation Gynecologic: External Genitalia: Erythema and labial agglutination consistent with lichen sclerosis Vagina: ; grade 2-3 cystocele, overall adequate bladder neck and apical support, grade 1 rectocele Cervix: Uterus: Ovaries: Parametria: Smooth. Rectovaginal: Hemoccult: Procedure note: Assessment: 76yo jane with symptomatic cystocele, rectocele Seeing Dr. Norton today for CHF eval and consideration of pacemaker placement Plan: Options discussed: observation with Kiegel exercises, Pessary (she has failed already), or surgery. Vaginal preservation and removal (colpoleisis) discussed. Due to no desire for vaginal preservation and lower risk procedure, I recommended colpocleisis i f she desires surgical intervention. She understands surgery is only for symptom management. I stressed that cardiac issues are more pressing at this time and she needs to get that sorted out first. She is a [employer] and blood products would ne ed to be carefully addessed. or can call to schedule intervention. Approved by: Keyshawn Leach 06/24/2012, 1:17 PM cc: Kathy Norton, cardiology documented in this encounter Plan of Treatment Not on file documented as of this encounter Visit Diagnoses Not on filedocumented in this encounter Care Teams Antique Collector Relationship Specialty Start Date End Date Kathy Torres MD [address] [place] [address] PCP - General Family Medicine 06/09/16 documented as of this encounter
--- OUTSIDE RECORDS SUMMARY | 2024-10-19 12:45 | XMS_ITS | Encounter Summary ---
Author Organization [facility] ystem Address [address] [place] [address] Care Team Providers Care Blocking Machine Operator Name Role Phone Kathy Torres MD Primary Care Provider + Encounter Details Date Type Department Care Team (Late st Contact Info) Description 04/28/2013 Conversion Encounter [facility] HISTORICAL CONV [address] [place] [address] Interface, See Report Social History Tobacco Use Types Packs/Day Years Used Date Smoking Tobacco: Never Assessed Comments Unknown Sex and Gender Information Value Date Recorded Sex Assigned at Not on file Legal Sex Female 1:30 PM EDT Gender Identity Not on file Sexual Orientation Not on file documented as of this encounter Progress Notes * Interface, See Report - 04/28/2013 12:00 AM EST PRESIDENT & FOUNDER-Oncology Services [address] [place] [id number] Patient: DINORA NUGENT MR #: [id number] : 1935 Date of Visit: 04/28 Referring Physician: DEE GRANADOS Dictated By: Andressa Leach MD Diagnosis: CYSTOCELE, RECTOCELE LABIAL ABCESS (MRSA) Allergies: SIMVASTATIN, BACTRIM DS History of present illness: 3MO FU; PT. HERE TO DISCUSS SURGERY. MRSA resolved. Past medical history: Medical: CYSTOCELE, RECTOCELE, HYPERTENSION; HEART DISEASE; OVARIAN CYST; TINIITIS; ARTHRITIS; CARPAL TUNNEL; FIBROMYALGIA; MIGRAINE; LT BREAST FIBROCYSTIC DISEASE; MRSA Surgical: PARTIAL HYSTERECTOMY; BLADDER SURGERY; APPENDECTOMY; LAPAROSCOPY FOR CYST TO OUTSIDE OF COLON,; CATARACT; ROTATOR CUFF; SHOULDER, LEFT OVARIAN CYST, LEFT BREAST X2, BLADDER Health maintenance: Mammogram: Colonoscopy: Pap smear: Tumor Marker: CT Scan: BMD: Ultrasound: Review of systems: Constitutional: No change in weight, no excessive fatigue Psychiatric: +INSOMNIA. No history of anxiety, depression, bipolar disorder Respiratory: No shortness of breath, cough, asthma, wheezing Cardiovascular: +HTN; +HEART DZ. No angina, orthopnea, edema, murmur, hyperlipidemia Gastrointestinal: +RECTOCELE. No constipation or diarrhea, no reflux, nausea, or vomiting Genitourinary: +CYSTOCELE. No dysuria, hematuria, urgency, or frequency Neurologic: +MIGRAINES. No numbness, weakness, syncope, seizures Gynecologic: +POP. +H/O LABIAL ABCESS (MRSA). + H/O OVARIAN CYST. No abnormal bleeding, vaginal discharge, pelvic pain, of h/o abnml pap smears LMP: P: 3 Vag Deliveries: 3 C-sec: 0 Misc: Additional notes: +FIBROMYALGIA; +LT BREAST CYSTIC DZ; +C.TUNNEL; +ARTHRITIS; +GLASSES. + H/O MRSA Medications: Medication Reconciliation for the patient has been reviewed in the EMR. Physical exam: Constitutional: Weight 155 Height BP 158/80 Pulse Temp Neurological/Psychiatric: HEENT: Neck: Respiratory: Cardiovascular: Breasts: Gastrointestinal: Lymphatic: Extremities: Gynecologic: External Genitalia: Vagina: ; cystocele/rectocele unchanged Cervix: Uterus: Ovaries: Parametria: Smooth. Rectovaginal: Hemoccult: ECOG Performance Status: Choose an item. Procedure note: Assessment: 77 yo for f/u discussion of pelvic organ prolapse, cystocele/rectocele Plan: Gave patient new POP information sheet. She is unsure how to proceed, but would like surgery. She has not had intercourse for ~15 years, but is not sure about colpocleisis. She wants me to talk to her daughter who is not here today. I advised she bring daughter for visit or hasve her daughter call.Also discussed that Chetna with office is excellent resource for questions. Will schedule surgerywhen patient has made decision. Electronically Signed By: Andressa Leach MD Date: 05/02/2013 Time: 6:47 AM cc: documented in this encounter Plan of Treatment Not on file documented as of this encounter Visit Diagnoses Not on filedocumented in this encounter Care Teams Blocking Machine Operator Relationship Specialty Start Date End Date Kathy Torres MD [address] [place], [place] [id number] PCP - General Family Medicine 06/09/16 documented as of this encounter
--- OUTSIDE RECORDS SUMMARY | 2024-10-19 12:45 | XMS_ITS | Data Portability ---
Author Organization [place] [facility] [place] Address [address] [place] [address] Care Team Providers Care Plugger Man Name Role Phone CONRAD FITZGERALD Primary Care Provider Assessment No assessment recorded. Plan of Treatment Reminders Order Date Submit Date Provider Last Modified By Organization Details Last Modified Time Details Appointments None recorded. Lab None recorded. Referral None recorded. Procedures None recorded. Surgeries None recorded. Imaging None recorded. Medication Orders escitalopra m 5 mg tablet 2021 022 [facility]/Pharmacy #[id number], [address] [place], [address], 14:33:46 Patient TargetsNo targets recorded. Patient InstructionsNo [...] Address Organization Details Last Updated DateTime 2 41867.7 5 g 98.2 [degF] 97 % 97 % 82 /min 120/80 mm[Hg] Ben Turk [facility] & [place] 2 14:03:03 Social History None recorded. Functional Status None recorded. Mental Status None recorded. Family History Nothing Reported. Medical History No medical history recorded. Gynecological HistoryNo gynecological history recorded. Obstetrics History GPAL:G 0 P 0 0 0 0 Past Encounters Encounter ID Performer Location Encounter Start Date Encounter Closed Date Diagnosis/Indication Diagnosis SNOMED-CT Code Diagnosis ICD10 Code Diagnosis Note [id number] Lucita Delatorre MD [facility] [address] [place] [address] 03/05/2022 13:57:10 03/05/2022 14:44:49 Primary degenerative dementia of the Alzheimer type, senile onset 974294624 G30.1 overall stable, would like to continue [...] does. 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 Lucita Delatorre MD [address] [place] [address], [phone] [place] [address] & [place] 03/05/2022 14:34:14 OBGyn Episode No OBEpisode recorded.
--- OUTSIDE RECORDS SUMMARY | 2024-10-19 12:45 | XMS_ITS | Encounter Summary ---
Author Organization [facility] ystem Address [address] [place] [address] Care Team Providers Care Mortgage Closing Clerk Name Role Phone Kathy Torres MD Primary Care Provider + Encounter Details Date Type Department Care Team (Late st Contact Info) Description 09/23/2012 Conversion Encounter [facility] HISTORICAL CONV [address] [place] [address] Interface, See Report Social History Tobacco Use Types Packs/Day Years Used Date Smoking Tobacco: Never Assessed Comments Unknown Sex and Gender Information Value Date Recorded Sex Assigned at Not on file Legal Sex Female 1:30 PM EDT Gender Identity Not on file Sexual Orientation Not on file documented as of this encounter Progress Notes * Interface, See Report - 09/23/2012 12:00 AM EDT HYDROMETALLURGICAL ENGINEER-Oncology Services [address] [place], [place] [id number] [phone] Patient: DINORA NUGENT MR #: : 1935 Date of Visit: 09/23/2012 Attending Physician: Keyshawn Leach Dictated By: KEYSHAWN LEACH Referring Physician: DEE GRANADOS Diagnosis: SACROCOLPOPEXY Allergies: SIMVASTATIN History of present illness: HAS SWOLLEN BARTHOLIN GLAND, AND TWO AREAS THAT ARE DRAINING - problemsx [address] TORRES ON THURSDAY, AND SHE GAVE HER BACTRIM 800 BID. Denies fever but not taking temp. Feels hot at night. Past medical history: Medical: HYPERTENSION; HEART DISEASE; H/O OVARIAN CYST; TINIITIS; ARTHRITIS; CARPAL TUNNEL; FIBROMYALGIA; MIGRAINE; LT BREAST OBOCYSTIC DISEASE; likely CHF Surgical: PARTIAL HYSTERECTOMY; BLADDER SURGERY; [...] +MIGRAINES. No numbness, weakness, syncope, seizures Gynecologic: + SWOLLEN BARTHOLIN'S GLAND WITH 2 AREAS DRAINING. No abnormal bleeding, vaginal discharge, pelvic pain, of h/o abnml pap smears LMP: P: 3 Vag Deliveries: 3 C-sec: 0 Misc: 0 Additional notes: +LT BREAST CYSTIC DZ; +C.TUNNEL; +ARTHRITIS; +GLASSES Medications: Medication Reconciliation for the patient has been reviewed in the EMR. Physical exam: Constitutional: Weight 147 Height BP 140/82 Pulse Temp Neurological/Psychiatric: HEENT: Neck: Respiratory: Cardiovascular: Breasts: Gastrointestinal: Lymphatic: +Left adenopathy Extremities: Gynecologic: External Genitalia: draining abscess, 8-10 cm, erythema and induration Vagina: pelvic deferred Cervix: Uterus: Ovaries: Parametria: . Rectovaginal: Hemoccult: Procedure note: I&D of left vulva: betadine prep, local with emla and 4ml 1% lidocaine, sharp incisio n with + purulent material. q-tip to probe- slight track anteriorly. all material expressed. Irrigated. packed with 1/2 gauze. Assessment: I&D of vulvar abscess Culture obtained on Bactrim Plan: await culture, for wound care, Lortab 5/500 #20 for pain tomorrow for wound care Approved by: Keyshawn Leach 09/23/2012, 3:47 PM cc: documented in this encounter Plan of Treatment Not on file documented as of this encounter Visit Diagnoses Not on filedocumented in this encounter Care Teams Mortgage Closing Clerk Relationship Specialty Start Date End Date Kathy Torres MD [address] [place] [address] PCP - General Family Medicine 06/09/16 documented as of this encounter
--- OUTSIDE RECORDS SUMMARY | 2024-10-19 12:45 | XMS_ITS | Encounter Summary ---
Author Organization [facility] ystem Address [address] [place] [address] Care Team Providers Care Speech Therapist Technician Name Role Phone Kathy Torres MD Primary Care Provider + Encounter Details Date Type Department Care Team (Late st Contact Info) Description 01/04/2013 Conversion Encounter [facility] HISTORICAL CONV [address] [place] [address] Interface, See Report Social History Tobacco Use Types Packs/Day Years Used Date Smoking Tobacco: Never Assessed Comments Unknown Sex and Gender Information Value Date Recorded Sex Assigned at Not on file Legal Sex Female 1:30 PM EDT Gender Identity Not on file Sexual Orientation Not on file documented as of this encounter Progress Notes * Interface, See Report - 01/18/2013 12:00 AM EDT INSTRUMENT REPAIR SUPERVISOR-Oncology Services [address] [place], [place] [id number] Patient: DINORA NUGENT MR #: [id number] : 1935 Date of Visit: 01/18/2013 Referring Physician: DEE GRANADOS Dictated By: Andressa Leach MD Diagnosis: PELVIC ORGAN PROLAPSE; LABIAL ABCESS (MRSA) Allergies: SIMVASTATIN, BACTRIM DS History of present illness: FOLLOW-UP Patient is a pleasant 77 yo with a history of vulvar abscesss and MRSA now resolved. She representstoday for consideration of surgical intervention for pelvic organ prolapse. She notes continued pelvic pressure and a buldge. Past medical history: Medical: HYPERTENSION; HEART DISEASE; H/O OVARIAN CYST; TINIITIS; ARTHRITIS; CARPAL TUNNEL; FIBROMYALGIA; MIGRAINE; LT BREAST FIBROCYSTIC DISEASE; MRSA Surgical: PARTIAL HYSTERECTOMY; BLADDER SURGERY; APPENDECTOMY; LAPAROSCOPY FOR CYST TO OUTSIDE OF COLON,; CATARACT; ROTATOR CUFF; SHOULDER, LEFT OVARIAN CYST, LEFT BREAST X2, BLADDER Health maintenance: Mammogram: Colonoscopy: Pap smear: 03/30/07 Tumor Marker: CT Scan: BMD: Ultrasound: Review of systems: Constitutional: No change in weight, no excessive fatigue Psychiatric: +INSOMNIA. No history of anxiety, depression, bipolar disorder Respiratory: No shortness of breath, cough, asthma, wheezing Cardiovascular: +HTN; +HEART DZ. No angina, orthopnea, edema, murmur, hyperlipidemia Gastrointestinal: No constipation or diarrhea, no reflux, nausea, or vomiting Genitourinary: No dysuria, hematuria, urgency, or frequency Neurologic: + MIGRAINES. No numbness, weakness, syncope, seizures Gynecologic: +POP. +H/O LABIAL ABCESS (MRSA). 150+ H/O OVARIAN CYST. No abnormal bleeding, vaginal discharge, pelvic pain, of h/o abnml pap smears LMP: P: 3 Vag Deliveries: 3 C-sec: 0 Misc: 0 Additional notes: +FIBROMYALGIA; +LT BREAST CYSTIC DZ; +C.TUNNEL; +ARTHRITIS; +GLASSES . + H/O MRSA Medications: Medication Reconciliation for the patient has been reviewed in the EMR. Physical exam: Constitutional: Weight 151 Height BP 126/80 Pulse Temp Neurological/Psychiatric: HEENT: Neck: Respiratory: Cardiovascular: Breasts: Gastrointestinal: Lymphatic: Extremities: Gynecologic: External Genitalia: Vagina: Cervix: Uterus: Ovaries: Parametria: Smooth. Rectovaginal: Hemoccult: Procedure note: Assessment: 77 yo with symptomatic cystocele, rectocele h/o vulvar abscess, MRSA Plan: Surgical options reviewed. Document given to patient. Risks/benefits discussedl. Patient refuses blood transfusion. Leaning towards colpocleisis, possible BSO. MRSA nasal swab today and with PAT. Electronically Signed By: Andressa Leach MD cc: * Interface, See Report - 01/04/2013 12:00 AM EDT INSTRUMENT REPAIR SUPERVISOR-Oncology Services [address] [place] [address] Patient: DINORA NUGENT MR #: : 1935 Date of Visit: 01/04/2013 Attending Physician: Hellen Forrest Dictated By: HELLEN FORREST Referring Physician: DEE GRANADOS Diagnosis: PELVIC ORGAN PROLAPSE; LABIAL ABCESS ( MRSA) Allergies: SIMVASTATIN, BACTRIM DS History of present illness: 3 MO F/U . PT. STATES SHE COMPLETED ATB'S FOR LABIAL ABCESS (MRSA) ABOUT 2 WEEKS AGO. SITE APPEARS TO HAVE HEALED, PER PT. AT SOME POINT SHE WANTS TO PROCEED WITH SURGICALTX FOR POP. Pt here for check of vulvar abcess s/p completion of antibiotic therapy 2 weeks ago perID. She has decided she would like to have a surgery for cystocele/rectocele with Dr. Lecah as so on as she can. She has been released from [place], and is to followup on an as needed basis. She states the labial abcess is completely healed, she notes no pain, swelling, or drainage. Past medical history: Medical: HYPERTENSION; HEART DISEASE; H/O OVARIAN CYST; TINIITIS; ARTHRITIS; CARPAL TUNNEL; FIBROMYALGIA; MIGRAINE; LT BREAST FIBROCYSTIC DISEASE; MRSA Surgical: PARTIAL HYSTERECTOMY; BLADDER SURGERY; APPENDECTOMY; LAPAROSCOPY FOR CYST TO OUTSIDE OF COLON,; CATARACT; ROTATOR CUFF; SHOULDER, LEFT OVARIAN CYST, LEFT BREAST X2, BLADDER tack Health maintenance: Mammogram: Colonoscopy: Pap smear: 03/30/07 Tumor Marker: CT Scan: BMD: Ultrasound: Review of systems: Constitutional: No change in weight, no excessive fatigue Psychiatric: +INSOMNIA. No history of anxiety, depression, bipolar disorder Respiratory: No shortness of breath, cough, asthma, wheezing Cardiovascular: +HTN; +HEART DZ . No angina, orthopnea, edema, murmur, hyperlipidemia Gastrointestinal: No constipation or diarrhea, no reflux, nausea, or vomiting Genitourinary: No dysuria, hematuria, urgency, or frequency Neurologic: + MIGRAINES. No numbness, weakness, syncope, seizures Gynecologic: +POP. +H/O LABIAL ABCESS (MRSA). 150 + H/O OVARIAN CYST. No abnormal bleeding, vaginaldischarge, pelvic pain, of h/o abnml pap smears LMP: P: 3 Vag Deliveries: 3 C-sec: 0 Misc: 0 Additional notes: +FIBROMYALGIA; +LT BREAST CYSTIC DZ; +C.TUNNEL; +ARTHRITIS; +GLASSES Medications: Medication Reconciliation for the patient has been reviewed in the EMR. Physical exam: Constitutional: Weight 150 Height BP 138/72 Pulse Temp Neurological/Psychiatric: HEENT: Neck: Respiratory: Cardiovascular: Breasts: Gastrointestinal: Lymphatic: Extremities: Gynecologic: External Genitalia: , no evidence of residual infection, mucosa intact, no induration or drainage noted. Vagina: , grade 2-3 cystocele with grade 1-2 rectocele Cervix: Uterus: Ovaries: Parametria: Smooth. Rectovaginal: Hemoccult: Procedure note: Assessment: H/O Vulvar Abcess- resolved H/O MRSA Cystocele/Rectocele Plan: Pt desires surgical intervention for bladder prolapse- will have her return to have discussion regarding surgical procedure with Dr. Leach and then schedule OR Discussed with pt that if any further areas of abcess return she needs to call ID to be seen and treated 1-[address] Leach for surgical consult Approved by: Hellen Forrest 01/04/2013, 11:05 AM cc: documented in this encounter Plan of Treatment Not on file documented as of this encounter Visit Diagnoses Not on filedocumented in this encounter Care Teams Speech Therapist Technician Relationship Specialty Start Date End Date Kathy Torres MD [address] [place] [address] PCP - General Family Medicine 06/09/16 documented as of this encounter
--- OUTSIDE RECORDS SUMMARY | 2024-10-19 12:45 | XMS_ITS | Data Portability ---
Author Organization [facility] Address [address] [facility] [place] [address] Care Team Providers Care Sprinkling System Irrigator Name Role Phone CONRAD FITZGERALD Primary Care Provider Assessment Encounter Date Assessment Date Assessment [...] Orders memantine 10 mg tablet 2023 024 [facility]/Pharmacy #[id number], [address] [place], [address], 12/10/2023 13:33:13 memantine 10 mg tablet 2022 023 [facility]/Pharmacy #[id number], [address] [place], [address], 12/05/2022 15:15:29 escitalop gisele 10 mg tablet 2022 024 [facility]/Ph[facility] #[id number], [address] [place], [address], 06/18/2023 13:50:38 Patient TargetsNo targets recorded. Patient InstructionsNo instructions recorded. Reason for Referral None Reported. Results Created Date Observation Date Name Description Value Unit Range Abnormal Flag Note LastModifiedBy Organization Detail LastModifiedTime Result Notes None recorded. Procedures Surgical History Date Name Laterality Status Provider Name and Address Organization Details Recorded Time 02/20/20 16 Pacemaker monitr digital/vis completed Jazlyn Echeverria [facility] 12/05/2022 14:42:50 Total Hysterectomy completed Kimberlyn Theodore [facility] 04/23/2023 12:56:39 Imaging Results None recorded. [...] Updated DateTime 4 162.56 cm 21.1 kg/m2 11750.5 6 g 99 % 99 % 70 /min 116/64 mm[Hg] Kimberlyn Theodore [facility] 4 12:58:58 Date Recorded Body height Body mass index (BMI) Body weight Systolic And Diastolic Provider Name and Address Organization Details Last Updated DateTime 06/09/2024 162.56 cm 21.8 kg/m2 88500.23 g 114/72 mm[Hg] Leandra Byrnes [facility] 06/09/2024 11:32:08 Date Recorded Body height Body mass index (BMI) Body weight Heart rate Oxygen saturation Oxygen saturation in Arterial blood by Pulse oximetry Systolic And Diastolic Provider Name and Address Organization Details Last Updated DateTime 4 162.56 cm 20.6 kg/m2 30113.0 8 g 70 /min 98 % 98 % 122/86 mm[Hg[facility] 13:48:05 Date Recorded Body height Body mass index (BMI) Body weight Heart rate Oxygen saturation Oxygen saturation in Arterial blood by Pulse oximetry Systolic And Diastolic Provider Name and Address Organization Details Last Updated DateTime 3 162.56 cm 23.7 kg/m2 98582.7 5 g 77 /min 97 % 97 % 122/72 mm[Hg] [facility] 3 14:37:58 Date Recorded Body height Body mass index (BMI) Body weight Heart rate Oxygen saturation Oxygen saturation in Arterial blood by Pulse oximetry Systolic And Diastolic Provider Name and Address Organization Details Last Updated DateTime 4 162.56 cm 24 kg/m2 99924.9 3 g 66 /min 99 % 99 % 120/80 mm[Hg] [facility] 4 13:02:06 Social History Question Answer Notes LastModified by Organizat ion Details LastModified Time Tobacco Smoking Status Never Smoker [facility] 12/05/2022 14:41:51 What Was The Date Of Your Most Recent Tobacco Screening? 04/23/2023 [email or web address] Information not available 04/23/2023 Sex: Unknown Functional Status Question Answer Note LastModified by Organization D etails LastModified Time What is your level of alcohol consumption? None [email or web address] Information not available 12/05/2022 Mental Status None recorded. Family History Relationship Description Onset Age of this Age Resolved Age Notes LastModified by Organization Details LastModified Time Mother Family history of malignant neoplasm Brain [email or web address] Not available 2022 14:40:33 Father Family history of malignant neoplasm Colon [email or web address] Not available 2022 14:40:33 Sister Heart disease [email or web address] Not available 2022 14:41:12 Medical History Condition Response Arthritis Y Alzheimer's Y Heart Disease Y Hypertension Y Gynecological HistoryNo gynecological history recorded. Obstetrics History GPAL:G 0 P 0 0 0 0 Past Encounters Encounter ID Performer Location Encounter Start Date Encounter Closed Date Diagnosis/Indication Diagnosis SNOMED-CT Code Diagnosis ICD10 Code Diagnosis Note [id number] KVNG DELATORRE MD [facility] [address] [place] [address] 12/05/2022 14:26:13 12/06/2022 04:56:50 Primary degenerative dementia of the Alzheimer type, senile onset 772861886 G30.1 [id number] ASH JOHNS PA-C [facility] [address] [place] [address] 1 04/23/2023 12:42:24 04/24/2023 04:18:32 Primary degenerative dementia of the Alzheimer type, senile onset 022409000 G30.1 Visual hallucinations 64 760574 R44.1 [id number] ASH JOHNS PA-C [facility] [address] [place] [address] 1 06/18/2023 13:36:54 06/19/2023 05:18:08 Primary degenerative dementia of the Alzheimer type, senile onset 293084093 G30.1 [id number] ASH JOHNS PA-C [facility] [address] [place] [address] 1 12/10/2023 12:41:43 12/11/2023 04:09:30 Primary degenerative dementia of the Alzheimer type, senile onset 143298114 G30.1 [id number] ASH JOHNS PA-C [facility] [address] [place] [address] 1 06/09/2024 11:11:46 06/10/2024 04:47:24 Primary degenerative dementia of the Alzheimer type, senile onset 294127606 G30.1 Health Concerns Section Related Observation LastModified by Organization Detai ls LastModified Time None Recorded Concern Status LastModified by Organization Details LastModified Time None Recorded Advance Directives Directive None Recorded Payers Insurance Date Sequence Insurance Name Policy Number Policy King Covered Member ID King Member ID Guarantor Name 12/10/2023 1 [employer] Ketty S Brashier [id number] Ketty S Brashier 12/10/2023 1 [employer] (MEDICARE REPLACEMENT/ ADVANTAGE - PPO) Ketty S Brashier [id number] Ketty S Brashier 06/06/2024 [employer] (MEDICARE REPLACEMENT/ ADVANTAGE - PPO) Ketty S Brashier [id number] Ketty S Brashier Notes Date Note Type [...] weight has stayed stable. KVNG DELATORRE MD [address] [place] [address], [phone], [facility] 12/05/2022 15:15:43 04/23/2023 text/html 87 yo here [...] about them. ASH JOHNS PA-C [address] [place], [address], [facility] 04/23/2023 13:31:44 06/18/2023 text/html 87 yo here [...] weed some. ASH JOHNS PA-C [address] [place], [address], [facility] 06/18/2023 14:05:44 12/10/2023 text/html 88 yo here [...] to be getting home. ASH JOHNS PA-C [address] [place], [address], [facility] 12/10/2023 16:45:51 06/09/2024 text/html 88 yo here [...] wanting to call them ASH JOHNS PA-C [address] [place], [address], [facility] 06/09/2024 12:09:25 OBGyn Episode No OBEpisode recorded.
== END 2024-10-19 23:59 | disposition home or self-care (01) ==
LOC: RAD 12:43
PROVIDERS: PCP Family Medicine; Visit Provider Physician Assistant
DX: S32.501A Unspecified fracture of right pubis, initial encounter for closed fracture; X58.XXXA Exposure to other specified factors, initial encounter
CPT/HCPCS: 72170

== ENCOUNTER 2024-11-23 15:00 | Outpatient (RCR) | payer MEDICARE, SELFPAY ==
--- NOTE | 2024-11-10 14:51 | [facility].PTOPEV ---
PT Outpatient Evaluation Rehab PT Outpatient Evaluation Start: 11/10/24 12:59 Freq: Status: Active Protocol: Document 11/10/24 12:59 EMILIE (Rec: 11/10/24 14:51 EMILIE [id number]) E-signed By Rody Mary, PT Outpatient Therapy Subjective History Subjective History Pt is a 88 y/o female who reports to the initial PT evaluation with her daughter Michelle who provided the subjective history, pt poor historian with diagnosis of Alzheimer's. Pt's daughter reports Ketty started complaining of right anterior hip pain in mid September ~2 weeks after a possible but not witnessed fall at home. Pt had a pelvis xray on 10/19/24 with impression of Nondisplaced fracture right inferior pubic ramus. Pt reports pain is on and off and seems to occur with weightbearing activities such as standing, walking, stair climbing, and pivoting on the RLE. Pt's daughter reports she has been ambulating with a RW although prior to the injury was ambulating without an AD. Pt's daughter denies other falls this year. Pt lives with her daughter in a one story house with 1 step to enter. She reports independence with transfers, ADLs and iADLs. Pt denies swelling, paresthesia or b/b dysfunction. Medical History: Alzheimer's, PACEMAKER, Hypertension, Hyperlipidemia, Afib New diagnosis of No cancer in past 12 months? Chief Complaint Pain Symptom Type Ache,Dull Symptoms Relieved By Rest/Positioning Symptoms Aggravated Standing,Physical Activity,Twisting,Walking By Current Functional Standing,Squatting,Walking,Stairs,Balance Limitations Symptom Description Intermittent Level of pain today 0 (0-10) Pain scale - at its 0 best (0-10) Pain scale - at its 7 worst (0-10) Hip/Knee Eval Gait Observation General Gait Pattern Narrow Based Gait,Decrease Weight Bear (R) Observation Assistive Device Assistive Devices Rolling / Wheeled Walker Palpation Tenderness right Hip Palpation Tenderness Findings Hip Palpation 1/4 TTP of R anterior pelvis/hip joint & mm Overall Comment MMT Hip Flexion Strength 4- Good- Grade Hip Abduction 4- Good- Strength Grade Hip Adduction 4- Good- Strength Grade Hip Extension 4- Good- Strength Grade Knee Extension 4 Good Strength Grade Knee Flexion 4 Good Strength Grade ROM Hip Flexion w/Knee 120 Flexed Active Range of Motion (degrees) Hip External 25 Rotation Active Range of Motion ( degrees) Hip Internal 40 Rotation Active Range of Motion ( degrees) Knee Extension 0 Active Range of Motion (degrees) Knee Flexion Active 120 Range of Motion ( degrees) Balance Eval Timed Up and Go Test 1. Is the Timed Up yes and Go test result > or = to 12 seconds? [place] Feet Together/Eyes pass open/Stable Surface Feet Together/Eyes fail Closed/Stable Surface Feet Together/Eyes fail open/Unstable Surface Feet Together/Eyes fail Closed/Unstable Surface Oswestry Index Section 1 Pain Intensity The pain comes and goes and is severe Section 2 Personal Care ( increase the pain and I find it necessary to change my Washing,[place]resing) way of doing it Section 3 Lifting I can only lift very light weights at most Section 4 Walking I cannot walk at all without increasing pain Section 5 Sitting I can sit in any chair for as long as I like Section 6 Standing I have some pain on standing, but it does not increase with time Section 7 Sleeping Because of my pain, my normal night's sleep is less than 6 hours sleep Section 8 Social Life Pain has restricted my social life to my home Section 9 Traveling Pain restricts me to short necessary journeys under 30 minutes Section 10 Changing Degreee of My pain is neither getting better or worse Pain Score and Risk Level Oswestry Sc 31 Oswestry Risk Level Severe Disability Outpatient Therapy Assessment Impairments Problems/ Palpation Tenderness,Impaired Range of Motion,Impaired Impairmments Strength,Impaired Gait Pattern,Impaired Walking, Impaired Standing,Impaired Stair Climbing,Impaired Incline Stepping,Impaired Stepping on Uneven Surface, Impaired Squatting,Impaired Balance,Subjective C/O Pain ,Impaired Self Care/Self Management Prognosis Rehab Potential Good Clinical Impression Consistent with Yes Diagnosis PT Patient Goals PT Patient Goals PT Short Term 2-3 weeks: Patient Goals 1. Pt/caregiver to verbalize compliance with HEP to assist with overall progress. 2. Perform FT EC stable surface 30 without LOB to decrease fall risk. 3. Improve UNIQUE score to 26 or less to improve overall QOL/function. PT Panel Cutter Patient 4-6 weeks: Goals 1. Improve RLE MMT to 4-4+/5 grossly to assist with function. 2. Demonstrate proper gait mechanics with LRD to decrease fall risk. 3. Improve R hip AROM ER/ER to 40-45 to assist with mobility. 4. Improve UNIQUE score to 21 or less to improve overall QOL/function. 5. Perform FT EO unstable surface 30 without LOB to decrease fall risk. Outpatient Therapy Plan of Care Treatment Plan May Include Therapeutic Exercise Yes Including Home Exercise Program Manual Therapy Yes Techniques Neuromuscular Re- Yes education Therapeutic Yes Activities to Return to Previous Functional/Work Level Gait Training Yes ADL/Self Care Yes Education Thermal Modalities Yes Group Therapy for Yes Medicare Eval/Re-Eval Yes Frequency Times per week 2 Duration Number of Weeks 4-6 Addendums This patient is a No candidate for social or vocational rehab ? Patient/Guardian Yes verbally acknowledges understanding of treatment program and consents to further treatment? Patient/Guardian Yes verbally acknowledges understanding of diagnosis, prognosis and goals for treatment? Eval Complexity PT Charges 38922 - Moderate Complexity Shoulder/Elbow Eval Shoulder Objective Measurements Elbow Objective Measurements PHYSICIAN CERTIFICATION: I certify the specified therapy services for Ketty Camp are required, authorized, and reviewed every 30 days.
== END 2024-11-23 23:59 | disposition home or self-care (01) ==
LOC: PT 15:00
PROVIDERS: PCP Family Medicine; Visit Provider Physician Assistant
DX: S32.9XXA Fracture of unspecified parts of lumbosacral spine and pelvis, initial encounter for closed fracture (principal)
CPT/HCPCS: 97162